=== PATIENT | male | born 1950 | race Caucasian/White ===

== ENCOUNTER 2018-02-16 07:11 | Day surgery (SDC) | payer OTHER ==
[2018-02-16] MEDS ORDERED: PHENYLEPHRINE 10% OPTH 5ML ONE (07:35)
[2018-02-16] MEDS ORDERED: NA CHLORIDE 0.9% 500 ML ONE (07:35)
[2018-02-16] MEDS ORDERED: CYCLOPENTOLATE 1% OPTH 2 ML ONE (07:36)
[2018-02-16] MEDS ORDERED: LIDOCAINE 2% MPF 5 ML VIAL ONE (07:36)
[2018-02-16] MEDS ORDERED: TETRACAINE HCL 0.5% 2ML OPTH ONE (07:36)
[2018-02-16] MEDS ORDERED: BUPIVACAINE 0.25% PF 10 ML VIAL ONE (07:36)
[2018-02-16] MEDS ORDERED: NS 0.9% VIAL 10 ML ONE (07:57)
[2018-02-16] MEDS ORDERED: EPINEPHRINE/PF 1 MG/ML AMP ONE (07:58)
[2018-02-16] MEDS ORDERED: BALANCED SALT IRRIG PLAIN 500 ML BTL IRR ONE (07:58)
[2018-02-16] MEDS ORDERED: MOXIFLOXACIN HCL 10 DROPS/ML **OR USE OPTH ONE (07:58)
[2018-02-16] MEDS ORDERED: DUOVISC 1 KIT OPTH ONE (07:58)
[2018-02-16] MEDS ORDERED: CYCLOPENTOLATE 1% OPTH 2 ML OPTH ONE ×2 (08:19→08:26)
[2018-02-16] MEDS ORDERED: PHENYLEPHRINE 10% OPTH 5ML OPTH ONE ×2 (08:19→08:26)
[2018-02-16] MEDS ORDERED: PROPOFOL 200 MG/20 ML VIAL IV ONE (08:30)
[2018-02-16 08:38] VITALS: O2SAT 98
[2018-02-16] MEDS ORDERED: FENTANYL CITR 100 MCG/2 ML ONE (09:14)
--- NOTE | 2018-02-16 09:40 | P.BOP ---
Preoperative diagnosis: Nuclear sclerotic cataract OD Postoperative diagnosis: Same Primary procedure: Phacoemulsification with IOL OD Estimated blood loss: None Anesthesia: Local (Subtenon's infusion with anesthesia for cataract surgery) Complications: None Implants: ZCB00 +21.5 Transferred to: Other (Day surgery) Condition: Good
[2018-02-16 10:09] VITALS: BP 160/78; TEMP 98.1
--- NOTE | 2018-02-16 22:01 | OP ---
Date of Procedure: 02/16/2018 Surgeon: Gricelda Horton MD Anesthesiologist: 1. Elias Merrill CRNA. 2. Romario Veliz M.D. Preoperative Diagnosis: Nuclear sclerotic cataract, OD (right eye). Operation Performed: Phacoemulsification with intraocular lens implant, right eye. Anesthesia: Per cataract surgery. Complications: None. Description Of Procedure: In day surgery, the patient was prepped with Betadine and draped. A conju nctival incision was made in the inferior nasal quadrant with Елена scissors. A sub-Tenon block c onsisting of a 1:1 mixture of 2% Xylocaine and 0.25% bupivacaine was placed through the conjunctival incision with a blunt cannula. A Honan balloon was placed over the eye and the patient was transferr ed to the operating room. In the operating room the patient was prepped and draped in the usual sterile fashion for ophthalmic surgery. A lid speculum was placed in the right eye. Two paracentesis sites were made superiorly an d inferiorly in the limbal cornea. Viscoat was placed in the anterior chamber and a crescent blade w as used to make a corneal groove and tunnel, and a keratome was used to enter the anterior chamber. Provisc was placed in the anterior chamber and a 360 degree capsulotomy was performed with a cystitom e. The lens was hydrodissected with BSS and rotated freely. The lens was removed with a stop and ch op technique. 10.88 CDE was used to remove the lens. Residual cortex was removed with the irrigatio n and aspiration. Provisc was placed in the capsular bag. A ZCB00 +21.5 lens was placed in the caps ular bag without complications. Irrigation and aspiration was used to remove residual viscoelastic. The paracentesis sites were hydrated with BSS. The wound and paracentesis sites were inspected and found to be watertight. Vigamox 0.07 cc was placed intracamerally at the end of the procedure. The eye was irrigated with balanced salt solution. The eye was patched with a soft cotton patch and Carpenter metal shield. The patient was returned to day surgery in good condition. Comments: Discharge Instructions: Mr. Guzman is discharged to home in good condition and is to follow up with Dr. Horton in the morning. VIRIDIANA/WELLINGTON Voice ID: [id number] Report ID: [id number]
== END 2018-02-16 09:59 | disposition home or self-care (01) ==
LOC: OR 07:11
PROVIDERS: ATTEND Ophthalmology Retina Specialist
PROC: 08RJ3JZ Replacement of Right Lens with Synthetic Substitute, Percutaneous Approach (ICD-10-PCS; principal; 2018-02-16 09:00)
DX: H25.11 Age-related nuclear cataract, right eye (principal); E11.9 Type 2 diabetes mellitus without complications; I10 Essential (primary) hypertension; E78.00 Pure hypercholesterolemia, unspecified; Z79.82 Long term (current) use of aspirin; Z85.528 Personal history of other malignant neoplasm of kidney; Z83.511 Family history of glaucoma; Z82.49 Family history of ischemic heart disease and other diseases of the circulatory system; Z80.9 Family history of malignant neoplasm, unspecified
CPT/HCPCS: 66984; 82962; J0171; J3010

== ENCOUNTER 2019-01-05 14:50 | Emergency (ER) | payer OTHER ==
--- OUTSIDE RECORDS SUMMARY | 2019-01-05 14:53 | XMS REPORT | Clinical Summary ---
:1950 Author Organization [facility] Address [address] [place] [address] Care Team Providers Name Role Phone Ryan Tirado MD Primary Care Provider Allergies Active Allergy Reactions Severity Noted Date Comments Droperidol 07/24/2018 Feels like crawling in his skin Medications Medication Sig Dispensed Refills Start End Date Status Date hydrALAZINE (APRESOLINE) Take 100 mg 0 Active 100 MG tablet by mouth 2 (two) times a day. clonIDINE HCl (CATAPRES) Take 0.3 mg 0 Active 0.3 MG tablet by mouth 3 (three) times a day. doxazosin (CARDURA) 4 MG Take 4 mg by 0 Active tablet mouth nightly. gabapentin (NEURONTIN) Take 100 mg 0 Active 100 mg capsule by mouth 2 (two) times a day. insulin ASPART (NovoLOG) Inject 20 0 Active 100 unit/mL injection Units under the skin 3 (three) times a day before meals. insulin Inject 70 0 Active glargine,hum.rec.anlog Units under (BASAGLAR KWIKPEN U-100 the skin INSULIN SUBQ) nightly. linaclotide (LINZESS) Take 290 mcg 0 Active 290 mcg capsule by mouth 3 (three) times a week. propranolol HCl Take 120 mg 0 Active (PROPRANOLOL ORAL) by mouth nightly. rOPINIRole (REQUIP) 1 MG Take 1 mg by 0 Active tablet mouth 3 (three) times a day. hydroCHLOROthiazide Take 25 mg by 0 Active (HYDRODIURIL) 25 MG mouth daily. tablet spironolactone Take 25 mg by 0 Active (ALDACTONE) 25 MG tablet mouth daily. venlafaxine XR Take 75 mg by 0 Active (EFFEXOR-XR) 75 MG 24 hr mouth daily. capsule liraglutide (VICTOZA Inject 1.2 mg 0 Active 3-NISA SUBQ) under the skin nightly. furosemide (LASIX) 20 mg Take 20 mg by 5 Active tablet mouth daily. 8 UNABLE TO FIND Take 1 0 08/02/20 Discontinued capsule by 18 mouth daily. Med Name:Mitochon drial energy booster traMADol (ULTRAM) 50 mg Take 50 mg by 0 08/02/20 Discontinued tablet mouth every 6 18 (six) hours as needed for moderate pain. acetaminophen-codeine Take 1-2 40 tablet 0 08/09/19 (TYLENOL WITH CODEINE tablets by 8 19 #3) 300-30 mg per tablet mouth every 6 (six) hours as needed for moderate pain for up to 7 days. methocarbamol (ROBAXIN) Take 1 tablet 30 tablet 0 08/17/19 500 MG tablet (500 mg 8 19 total) by mouth 2 (two) times a day as needed for muscle spasms for up to 15 days. Active Problems Problem Noted Date Cervical radiculopathy due to intervertebral disc disorder 07/31/2018 Encounters Date Type Specialty Care Team Description 10/13/2018 Orders Only General Surgery Daryl, Morbid obesity (HCC) ( Primary Dx); SERJIO Cherry Preop examination 10/05/2018 Office Visit General Surgery Sunil, Morbid obesity due to excess calories (HCC) (Primary Dx); MD Nestor Diabetes mellitus due to underlying condition with hyperosmolarity without coma, unspecified whether long term care pharmacist insulin use (HCC); Essential hypertension; Chronic renal failure, stage 3 (moderate) (HCC) 08/12/2018 Hospital Encounter Radiology Yasmin Schuster Neck pain MD Kevin 08/12/2018 Transcribe Orders Access Yasmin Schuster Neck pain (Primary Dx) MD Kevin 07/31/2018 Anesthesia Event General Surgery Lizz Berger APRN 07/31/2018 Surgery General Surgery Yasmin Schuster C5-C6 ANTERIOR CERVICAL MD Kevin DISCECTOMY AND FUSION 07/31/2018 - Hospital Encounter General Internal Yasmin Schuster Radiculopathy , cervical; 08/02/2018 Medicine MD Kevin Cervical stenosis of spine 07/24/2018 Pre-Admit Testing Pre-Admission Yasmin Schuster Pre-op testing ( Primary Appointment Testing MD Kevin Dx) 07/16/2018 Hospital Encounter Radiology Yasmin Schuster Radiculopathy, unspecified spinal region; MD Kevin Lumbar radiculopathy 07/16/2018 Hospital Encounter Radiology Yasmin Schuster Radiculopathy, unspecified spinal region; MD Kevin Lumbar radiculopathy 07/16/2018 Transcribe Orders Radiology Yasmin Schuster Radiculopathy, unspecified spinal region (Primary Dx); MD Kevin Lumbar radiculopathy after 01/04/2018 Family History Medical History Relation Name Comments Heart disease Father Hypertension Father Prostate cancer Father Stroke Father Breast cancer Maternal Aunt Arthritis Mother Emphysema Mother Lung disease Mother Relation Name Status Comments Father Maternal Aunt Mother Social History Tobacco Use Types Packs/Day Years Used Date Never Smoker Smokeless Tobacco: Never Used Alcohol Use Drinks/Week oz/Week Comments Yes 2-3 drinks per week Sex Assigned at Date Recorded Not on file Job Start Date Occupation Industry Not on file Not on file Not on file Travel History Travel Start Travel End No recent travel history available. Last Filed Vital Signs Vital Sign Reading Time Taken Blood Pressure 110/73 10/05/2018 1:58 PM ACCESS CLINICIAN Pulse 92 10/05/2018 1:58 PM ACCESS CLINICIAN Temperature 36.6 C (97.8 F) 10/05/2018 1:58 PM ACCESS CLINICIAN Respiratory Rate 18 08/02/2018 8:02 AM ACCESS CLINICIAN Oxygen Saturation 95% 10/05/2018 1:58 PM ACCESS CLINICIAN Inhaled Oxygen Concentration - - Weight 127 kg (279 lb 12.8 oz) 10/05/2018 1:58 PM ACCESS CLINICIAN Height 177.8 cm (5' 10") 10/05/2018 1:58 PM ACCESS CLINICIAN Body Mass Index 40.15 10/05/2018 1:58 PM ACCESS CLINICIAN Plan of Treatment Health Maintenance Due Date Last Done Comments DIABETIC RETINAL EYE EXAM 1950 DIABETIC FOOT EXAM 10/20/1959 COLON CANCER SCREENING 10/20/1999 SHINGLES VACCINES (#1) 10/20/1999 65+ PNEUMOCOCCAL VACCINE (1 of 2 - PCV13) 2014 PNEUMOCOCCAL POLYSACCHARIDE VACCINE AGE 65 AND OVER 2014 INFLUENZA VACCINE 03/04/2019 06/03/2018 Implants Implanted Type Area Sodder Device Shelf Model / Identifier Expiration Serial / Lot Date Bone Matriz Osteocel Pro Small - [id number] - [id number] Human N/A: [employer] 02/26/2023 [id number] / Implanted: Qty: 1 on 07/31/2018 by Yasmin Schuster MD Tissue N/A [id number] / Implants [id number] Distraction Pin- 12mm - [id number] IMPLANT N/A: [employer] SPINE [id number] / Implanted: 07/31/2018 (Quantity not on file) DEVICES N/A / Spinal Cage Ortho - N/A: [employer] 12/08/2022 [id number] / Implanted: Qty: 1 on 07/31/2018 by Yasmin Schuster MD Spinal N/A [id number] / Implant [id number] Screw Spinal Fxd Slf-Tap 4x13mm [place] [employer] Acp - [id number] Spinal N/A : [employer]UV[employer]IVE [id number] / Implanted: 07/31/2018 (Quantity not on file) Implants N/A / Screw Spinal Marcia Slf-Tap 4x13mm [place] [employer] Acp - [id number] Spinal N/A : [employer]UV[employer]IVE [id number] / Implanted: 07/31/2018 (Quantity not on file) Implants N/A / Plate Spinal Revltn 1lvl 22mm [place] Acp - [id number] Spinal N/A: [employer] [id number] / Implanted: 07/31/2018 (Quantity not on file) Implants N/A / Procedures Procedure Name Priority Date/Time Associated Comments Diagnosis XR CERVICAL SPINE 1 Routine 08/12/2018 10:19 Neck pain Results for this VW AM ACCESS CLINICIAN procedure are in the results section. POC GLUCOSE Routine 08/02/2018 7:47 Results for this AM ACCESS CLINICIAN procedure are in the results section. POC GLUCOSE Routine 08/01/2018 10:44 Results for this PM ACCESS CLINICIAN procedure are in the results section. POC GLUCOSE Routine 08/01/2018 7:27 Results for this PM ACCESS CLINICIAN procedure are in the results section. POC GLUCOSE Routine 08/01/2018 3:58 Results for this PM ACCESS CLINICIAN procedure are in the results section. POC GLUCOSE Routine 08/01/2018 12:33 Results for this PM ACCESS CLINICIAN procedure are in the results section. POC GLUCOSE Routine 08/01/2018 9:42 Results for this AM ACCESS CLINICIAN procedure are in the results section. POC GLUCOSE Routine 07/31/2018 10:51 Results for this PM ACCESS CLINICIAN procedure are in the results section. POC GLUCOSE Routine 07/31/2018 7:34 Results for this PM ACCESS CLINICIAN procedure are in the results section. XR CERVICAL SPINE 1 Routine 07/31/2018 7:10 Results for this VW PM ACCESS CLINICIAN procedure are in the results section. POC GLUCOSE Routine 07/31/2018 5:52 Results for this PM ACCESS CLINICIAN procedure are in the results section. XR CERVICAL SPINE 1 Routine 07/31/2018 5:50 Results for this VW PM ACCESS CLINICIAN procedure are in the results section. XR CERVICAL SPINE 1 Routine 07/31/2018 5:35 Results for this VW PM ACCESS CLINICIAN procedure are in the results section. SURGICAL PATHOLOGY Routine 07/31/2018 5:33 Results for this REQUEST PM ACCESS CLINICIAN procedure are in the results section. XR CERVICAL SPINE 1 Routine 07/31/2018 5:25 Results for this VW PM ACCESS CLINICIAN procedure are in the results section. SC AN ELECTIVE Routine 07/31/2018 5:15 ENDOTRACHEAL AIRWAY PM ACCESS CLINICIAN Procedure Note - Li Ferrari CRNA - 07/31/2018 5:15 PM ACCESS CLINICIAN ANESTHESIA INTUBATION Date/Time: 07/31/2018 4:48 PM Performed by: Li Ferrari CRNA Authorized by: Baron Ortiz MD Location: OR Urgency: Elective Difficult Airway: No Resident/GREENS TIER/AA: Li Ferrari CRNA Performed by: resident/CHRISTEN/AA Preoxygenated with 100% O2: Yes C-spine Precautions Maintained Throughout: No Mask Ventilation: Easy mask Final Airway Type: Endotracheal airway Final Endotracheal Airway: ETT Cuffed: Yes Technique Used: Video laryngoscopy Devices/Methods Used in Placement: Intubating stylet Insertion Site: Oral Blade Type: Joshua Laryngoscope Blade/Videolaryngoscope Blade Size: 4 ETT Size (mm): 8.0 Cuff at minimum occlusion pressure: Yes Measured from: Teeth ETT to Teeth (cm): 24 Placement Verified by: CO2 detection, direct visualization and equal breath sounds Laryngoscopic view: Grade IIa - partial view of glottis Rapid Sequence Induction (RSI): No Modified RSI: No Number of Attempts at Approach: 2 Eyes taped shut prior to airway manipulation. DL X 1 per GREENS TIER unsuccessful, changed to glidescope. Successfully intubated. No apparent trauma. POC GLUCOSE Routine 07/31/2018 3:18 PM Results for this ACCESS CLINICIAN procedure are in the results section. POC GLUCOSE Routine 07/31/2018 2:27 PM Results for this ACCESS CLINICIAN procedure are in the results section. DISCECTOMY, 07/31/2018 1:50 PM Radiculopathy, CERVICAL, WITH ACCESS CLINICIAN cervical FUSION, ANTERIOR Cervical stenosis APPROACH of spine Case Notes SUPINE POSITION, REGULAR OR BED-REVERSED., MICROSCOPE, HELIX R-ANTERIOR PLATE , PEEK SMALL COUTOURED CAGE, REQ GLOVE TURNER AND FORMER Special Needs SUPINE POSITION, REGULAR OR BED-REVERSED., MICROSCOPE, HELIX R-ANTERIOR PLATE , PEEK SMALL COUTOURED CAGE, REQ GLOVE TURNER AND FORMER POC GLUCOSE Routine 07/31/2018 1:24 Results for this PM ACCESS CLINICIAN procedure are in the results section. POC GLUCOSE Routine 07/31/2018 12:50 Results for this PM ACCESS CLINICIAN procedure are in the results section. POC GLUCOSE Routine 07/31/2018 11:35 Results for this AM ACCESS CLINICIAN procedure are in the results section. POC GLUCOSE Routine 07/31/2018 9:55 Results for this AM ACCESS CLINICIAN procedure are in the results section. ESTIMATED GFR STAT 07/31/2018 8:27 Results for this AM ACCESS CLINICIAN procedure are in the results section. BASIC METABOLIC PANEL STAT 07/31/2018 8:27 Results for this AM ACCESS CLINICIAN procedure are in the results section. POC GLUCOSE Routine 07/31/2018 8:19 Results for this AM ACCESS CLINICIAN procedure are in the results section. CBC HEMOGRAM Routine 07/24/2018 1:37 Pre-op testing Results for this PM ACCESS CLINICIAN procedure are in the results section. ECG PRE/POST OP Routine 07/24/2018 1:30 Pre-op testing Results for this PM ACCESS CLINICIAN procedure are in the results section. ESTIMATED GFR Routine 07/24/2018 12:47 Results for this PM ACCESS CLINICIAN procedure are in the results section. HEMOGLOBIN A1C Routine 07/24/2018 12:47 Pre-op testing Results for this PM ACCESS CLINICIAN procedure are in the results section. PROTHROMBIN TIME WITH Routine 07/24/2018 12:47 Pre-op testing Results for this INR PM ACCESS CLINICIAN procedure are in the results section. PARTIAL THROMBOPLASTIN Routine 07/24/2018 12:47 Pre-op testing Results for this TIME (PTT) PM ACCESS CLINICIAN procedure are in the results section. BASIC METABOLIC PANEL Routine 07/24/2018 12:47 Pre-op testing Results for this PM ACCESS CLINICIAN procedure are in the results section. MRI LUMBAR SPINE WO Routine 07/16/2018 5:05 Radiculopathy, Results for this CONTRAST PM ACCESS CLINICIAN unspecified spinal procedure are in region the results Lumbar radiculopathy section. MRI CERVICAL SPINE WO Routine 07/16/2018 4:48 Radiculopathy, Results for this CONTRAST PM ACCESS CLINICIAN unspecified spinal procedure are in region the results Lumbar radiculopathy section. after 01/04/2018 Results XR Cervical Spine 1 Vw (08/12/2018 10:19 AM ACCESS CLINICIAN)Only the most recent of5 resultswithin the time period is included. Specimen Narrative Performed At EXAMINATION:XR CERVICAL SPINE 1 VW RADIANT CLINICAL HISTORY:M54.2 Cervicalgia, m54.2 COMPARISON:Cervical spinal radiograph on 07/31/2018. FINDINGS: Total of 2 views with lateral radiographs of the cervical spine and cervicothoracic junction region. There are postoperative changes from C5-6 anterior discectomy and fusion with interbody cage graft, anterior plate and screws. Anterior plate and screws are flush with underlying bone. Grossly, no evidence of hardware failure or loosening. No malalignment. Mild moderately prominent bridging/near-bridging anterior endplate osteophytes are noted along multiple cervical levels between C2 and T2 levels. Previous monitoring and life support lines have been removed. Prevertebral soft tissues are thickened, measuring 1.3 cm in maximally thickness at the C5 level. IMPRESSION: 1. Postoperative changes from C5-6 anterior discectomy and fusion. No gross hardware failure or loosening. No malalignment. 2. Thickened prevertebral soft tissue, likely postoperative. [id number] Procedure Note Hm Interface, Radiology Results Incoming - 08/12/2018 10:30 AM ACCESS CLINICIAN EXAMINATION: XR CERVICAL SPINE 1 VW CLINICAL HISTORY: M54.2 Cervicalgia, m54.2 COMPARISON: Cervical spinal radiograph on 07/31/2018. FINDINGS: Total of 2 views with lateral radiographs of the cervical spine and cervicothoracic junction region. There are postoperative changes from C5-6 anterior discectomy and fusion with interbody cage graft, anterior plate and screws. Anterior plate and screws are flush with underlying bone. Grossly, no evidence of hardware failure or loosening. No malalignment. Mild moderately prominent bridging/near-bridging anterior endplate osteophytes are noted along multiple cervical levels between C2 and T2 levels. Previous monitoring and life support lines have been removed. Prevertebral soft tissues are thickened, measuring 1.3 cm in maximally thickness at the C5 level. IMPRESSION: 1. Postoperative changes from C5-6 anterior discectomy and fusion. No gross hardware failure or loosening. No malalignment. 2. Thickened prevertebral soft tissue, likely postoperative. [id number] Performing Organization Address City/[facility]/Zipcode Phone Number [address] [address] POC glucose (08/02/2018 7:47 AM ACCESS CLINICIAN)Only the most recent of16 resultswithin the time period is included. Pathologist [facility] POC glucose 225 (H) 65 - 99 mg/dL [facility] Comment: [facility] Notified RN Meter ID: [id number] Court Abstractor: Tricia Jaimes Specimen Performing Organization Address [facility] Cent[facility] Phone Number [facility] DEPARTMENT OF PATHOLOGY AND [address] [place] [phone] GENOMIC MEDICINE [address] [address] Surgical pathology request (07/31/2018 5:33 PM ACCESS CLINICIAN) [facility] DEPARTMENT OF PATHOLOGY AND GENOMIC MEDICINE Surgical pathology See link below [facility] DEPARTMENT OF report for PDF Lab PATHOLOGY AND Report GENOMIC MEDICINE Result status This is Final [facility] DEPARTMENT OF Report for PATHOLOGY AND [id number] GENOMIC MEDICINE Specimen Performing Organization Address [facility] Centercomi Phone Number [facility] DEPARTMENT OF PATHOLOGY AND [address] [place] [phone] GENOMIC MEDICINE Estimated GFR (07/31/2018 8:27 AM ACCESS CLINICIAN)Only the most recent of2 resultswithin the time period is included. [facility] Estimated GFR 48 (A) mL/min/1.73 [facility] Comment: HOSPITAL CatergoryUnitsInterpretation G1 >=90 Normal or high G2 60-89Mildly decreased [id number] to moderately decreased H7o20-21Dxorjyacqt to severely decreased G4 15-29Severely decreased G5 <15Kidney failure The eGFR was calculated using the Chronic Kidney Disease Epidemiology Collaboration (CKD-EPI) equation. Interpretation is based on recommendations of the National Kidney Foundation-Kidney Disease Outcomes Quality Initiative (NKF-KDOQI) published in 2014. Specimen Plasma specimen Performing Organization Address City/[facility]/Zipcode Phone Number [facility] DEPARTMENT OF PATHOLOGY AND [address] [place] [phone] [address] Basic metabolic panel (07/31/2018 8:27 AM ACCESS CLINICIAN)Only the most recent of2 resultswithin the time period is included. [facility] Sodium 138 135 - 148 mEq/L [facility] Potassium 3.6 3.5 - 5.0 mEq/L [facility] Chloride 97 (L) 98 - 112 mEq/L [facility] CO2 29 24 - 31 mEq/L [facility] Anion gap 12@ANIO 7 - 15 mEq/L [facility] BUN 33 (H) 8 - 23 mg/dL [facility] Creatinine 1.48 (H) 0.70 - 1.20 mg/dL [facility] Glucose 70 65 - 99 mg/dL [facility] Calcium 9.7 8.8 - 10.2 mg/dL [facility] Specimen Plasma specimen Performing Organization Address City/[facility] Centercode Phone Number [facility] DEPARTMENT OF PATHOLOGY AND [address] [place], [place] [phone] [address] [address] CBC hemogram (07/24/2018 1:37 PM ACCESS CLINICIAN) [facility] WBC 6.78 4.50 - 11.00 k/uL [facility] RBC 4.96 4.40 - 6.00 m/uL [facility] HGB 15.0 14.0 - 18.0 g/dL [facility] HCT 44.9 41.0 - 51.0 % [facility] MCV 90.5 82.0 - 100.0 fL [facility] MCH 30.2 27.0 - 34.0 pg [facility] MCHC 33.4 31.0 - 37.0 g/dL [facility] RDW - SD 44.4 37.0 - 55.0 fL [facility] MPV 11.1 8.8 - 13.2 fL [facility] Platelet count 184 150 - 400 k/uL [facility] Nucleated RBC 0.00 /100 WBC [facility] Specimen Blood Performing Organization Address City/[facility] Centercode Phone Number [facility] DEPARTMENT OF PATHOLOGY AND [address] [place] [phone] [address] ECG Pre/Post Op (07/24/2018 1:30 PM ACCESS CLINICIAN) Ventricular rate 86 [facility] Atrial rate 86 [facility] SC interval 182 [facility] QRSD interval 104 [facility] QT interval 390 [facility] QTC interval 466 [facility] P axis 1 79 [facility] QRS axis 1 55 [facility] T wave axis 78 [facility]USE EKG impression Normal sinus [facility] MUSE rhythm-Prolonged QT-Abnormal ECG-No previous ECGs available-Electronicall y Signed By Lamonte Dumont MD ([id number]) on 07/25/2018 9:11:20 AM Specimen Narrative Performed At Performing Organization Address City/State/Zipcode Phone Number [facility] MUSE [address] [place] [phone] Partial thromboplastin time, activated (07/24/2018 12:47 PM ACCESS CLINICIAN) Pathologist [facility] PTT 32.6 23.0 - 36.0 [facility] Comment: [facility] PTT therapeutic range for unfractionated heparin is 61.0-112.0 seconds which corresponds to Anti-Xa 0.3-0.7 U/ml. Specimen Blood Performing Organization Address City/State/Zipcode Phone Number [facility] DEPARTMENT OF PATHOLOGY AND [address] [place] [phone] [address] Prothrombin time with INR (07/24/2018 12:47 PM ACCESS CLINICIAN) Pathologist [facility] Prothrombin time 12.2 11.5 - 14.5 [facility] INR 0.9 [place] Comment: EPISCOPALIAN [facility] International Normalized Ratio (INR) is a therapeutic HOSPITAL monitoring tool for patients who are stable on oral anticoagulant therapy. An INR of 2.0-3.0 is suggested for deep vein thrombosis/pulmonary embolism. Specimen Blood Performing Organization Address City/State/Zipcode Phone Number [facility] DEPARTMENT OF PATHOLOGY AND [address] [place] [phone] [address] Hemoglobin A1c (07/24/2018 12:47 PM ACCESS CLINICIAN) Pathologist [facility] Hemoglobin A1C 7.4 (H) 4.0 - 5.6 % [facility] Comment: HOSPITAL HbA1c cutoffs for diagnosing diabetes: 4.0% - 5.6%=normal 5.7% - 6.4%=increased risk for diabetes (prediabetes) >=6.5%=diabetes Goals for glycemic control (ADA 2016) < 7.0%Target for non adults with diabetes. More or less stringent targets may be appropriate for individual patients. <7.5% Target for Children and adolescents with type 1 diabetes. Specimen Blood Performing Organization Address City/State/Zipcode Phone Number [facility] DEPARTMENT OF PATHOLOGY AND [address] [place] [address] GENOMIC MEDICINE [facility] [address] [place] [phone] MRI Lumbar Spine Wo Contrast (07/16/2018 5:05 PM ACCESS CLINICIAN) Specimen Narrative Performed At EXAMINATION:MRI LUMBAR SPINE WO CONTRAST RADIANT CLINICAL HISTORY:M54.10 Radiculopathysite unspecified, M54.16 Radiculopathylumbar region, CERVICALLUMBAR RADICULOPATHY COMPARISON:MR spine October 08, 2003. FINDINGS: L5-S1: There is marked ventral spondylosis and loss of normal signal intensity disc. There is very minimal dorsal bulging of the disc. There are mild degenerative hypertrophic changes the facet joints. There is some extension of the disc into the inferior neural foramen on the right suggesting possible foraminal disc protrusion. There is mild to moderate foraminal stenosis on the right and minimal foraminal narrowing on the left side. There is no spinal canal. L4-5: There is marked ventral spondylosis and loss of normal signal intensity disc. There is a mild dorsal disc bulge. There is minimal spondylolisthesis of L4 in relation L5 with a mild to moderate hypertrophic changes facet joints and thickening of the ligamentum flavum. These changes result in moderate to marked (6 mm) thecal sac stenosis. There is moderate to marked foraminal stenosis on the left and mild foraminal stenosis on the right. I cannot exclude a shallow subarticular disc protrusion on the left. L3-4: There is a mild ventral spondylosis and loss of normal signal intensity in the disc. There is minimal disc space narrowing. There is minimal bulging of the annulus. There are moderate degenerative changes in the facet joints and thickening of the ligamentum flavum. These changes result in moderate (7 mm) thecal sac stenosis. There is no foraminal stenosis. L2-3: There is moderate ventral spondylosis and some loss of normal signal intensity in the disc. There are minimal hypertrophic changes the facet joints. There is no stenosis. L1-2: There is moderate to marked ventral spondylosis. There is no dorsal spondylosis or stenosis. Imaging of the thoracolumbar junction demonstrates no evidence of a conus IMPRESSION: Degenerative changes lumbar spine with multilevel spinal canal and foraminal stenosis as described above. [facility]-[id number] Procedure Note Hm Interface, Radiology Results Incoming - 07/17/2018 12:50 AM ACCESS CLINICIAN EXAMINATION: MRI LUMBAR SPINE WO CONTRAST CLINICAL HISTORY: M54.10 Radiculopathy site unspecified, M54.16 Radiculopathy lumbar region, CERVICAL LUMBAR RADICULOPATHY COMPARISON: MR spine October 08, 2003. FINDINGS: L5-S1: There is marked ventral spondylosis and loss of normal signal intensity disc. There is very minimal dorsal bulging of the disc. There are mild degenerative hypertrophic changes the facet joints. There is some extension of the disc into the inferior neural foramen on the right suggesting possible foraminal disc protrusion. There is mild to moderate foraminal stenosis on the right and minimal foraminal narrowing on the left side. There is no spinal canal. L4-5: There is marked ventral spondylosis and loss of normal signal intensity disc. There is a mild dorsal disc bulge. There is minimal spondylolisthesis of L4 in relation L5 with a mild to moderate hypertrophic changes facet joints and thickening of the ligamentum flavum. These changes result in moderate to marked (6 mm) thecal sac stenosis. There is moderate to marked foraminal stenosis on the left and mild foraminal stenosis on the right. I cannot exclude a shallow subarticular disc protrusion on the left. L3-4: There is a mild ventral spondylosis and loss of normal signal intensity in the disc. There is minimal disc space narrowing. There is minimal bulging of the annulus. There are moderate degenerative changes in the facet joints and thickening of the ligamentum flavum. These changes result in moderate (7 mm) thecal sac stenosis. There is no foraminal stenosis. L2-3: There is moderate ventral spondylosis and some loss of normal signal intensity in the disc. There are minimal hypertrophic changes the facet joints. There is no stenosis. L1-2: There is moderate to marked ventral spondylosis. There is no dorsal spondylosis or stenosis. Imaging of the thoracolumbar junction demonstrates no evidence of a conus IMPRESSION: Degenerative changes lumbar spine with multilevel spinal canal and foraminal stenosis as described above. [facility]-[id number] Performing Organization Address City/State/Zipcode Phone Number [facility] [address] [place] [address] MRI Cervical Spine Wo Contrast (07/16/2018 4:48 PM ACCESS CLINICIAN) Specimen Narrative Performed At EXAMINATION:MRI CERVICAL SPINE WO CONTRAST [facility] CLINICAL HISTORY:M54.10 Radiculopathysite unspecified, M54.16 Radiculopathylumbar region, CERVICALLUMBAR RADICULOPATHY COMPARISON:Cervical spine October 08, 2003. FINDINGS: C1-2: No significant abnormality. C2-3: There is mild degenerative change in the facet joints. There is otherwise minimal spondylosis. The foramina are not that well demonstrated but there appears to be mild foraminal stenosis particularly on the left side. There is no spinal canal stenosis. C3-4: There is minimal spondylosis and dorsal disc bulge slightly greater on the left. There are moderate degenerative changes in the facet joints. There is mild (9 mm) canal stenosis without cord compression. There is moderate foraminal stenosis bilaterally. C4-5: There is moderate to marked ventral spondylosis. There are moderate to marked degenerative changes the facet joint on the right and to a lesser degree on the left without spondylolisthesis. There is a small to moderate size central disc protrusion contacting the ventral surface of the spinal cord. There is mild to moderate ( 8 mm) canal stenosis without cord compression. There is moderate foraminal stenosis on the left and mild foraminal stenosis right. C5-6: There is slight retrolisthesis of C5 in relation C6. There is marked ventral spondylosis. There is a broad dorsal disc bulge/protrusion greater on the left. There is mild to moderate (8 mm) centra l canal stenosis without definite cord compression. There are moderate hypertrophic changes in the facet joints with at least moderate foraminal stenosis bilaterally. C6-7: There is marked ventral spondylosis. There is minimal dorsal disc bulge slightly greater on the left. There is no spinal canal stenosis. There are mild degenerative changes in the facet joints wit h poor demonstration of the foramina. There appears to be a mild degree of foraminal stenosis bilaterally. C7-T1: There is mild ventral spondylosis. There is a minimal dorsal disc bulge. There are mild degenerative changes in the facet joints. There is no stenosis. There is no signal abnormality demonstrated in the spinal cord and no evidence of Chiari malformation. IMPRESSION: Cervical spondylosis and disc protrusions with a mild to moderate canal stenosis but no definite cord compression. The foramina are not demonstrated but there does appear to be a multilevel foraminal stenosis bilaterally. There is no evidence of a cervical spinal cord lesion. The degenerative changes have progressed considerably from the prior study [facility]-[id number] Procedure Note [facility], Radiology Results Incoming - 07/17/2018 12:50 AM ACCESS CLINICIAN EXAMINATION: MRI CERVICAL SPINE WO CONTRAST CLINICAL HISTORY: M54.10 Radiculopathy site unspecified, M54.16 Radiculopathy lumbar region, CERVICAL LUMBAR RADICULOPATHY COMPARISON: Cervical spine October 08, 2003. FINDINGS: C1-2: No significant abnormality. C2-3: There is mild degenerative change in the facet joints. There is otherwise minimal spondylosis. The foramina are not that well demonstrated but there appears to be mild foraminal stenosis particularly on the left side. There is no spinal canal stenosis. C3-4: There is minimal spondylosis and dorsal disc bulge slightly greater on the left. There are moderate degenerative changes in the facet joints. There is mild (9 mm) canal stenosis without cord compression. There is moderate foraminal stenosis bilaterally. C4-5: There is moderate to marked ventral spondylosis. There are moderate to marked degenerative changes the facet joint on the right and to a lesser degree on the left without spondylolisthesis. There is a small to moderate size central disc protrusion contacting the ventral surface of the spinal cord. There is mild to moderate ( 8 mm) canal stenosis without cord compression. There is moderate foraminal stenosis on the left and mild foraminal stenosis right. C5-6: There is slight retrolisthesis of C5 in relation C6. There is marked ventral spondylosis. There is a broad dorsal disc bulge/protrusion greater on the left. There is mild to moderate (8 mm) central canal stenosis without definite cord compression. There are moderate hypertrophic changes in the facet joints with at least moderate foraminal stenosis bilaterally. C6-7: There is marked ventral spondylosis. There is minimal dorsal disc bulge slightly greater on the left. There is no spinal canal stenosis. There are mild degenerative changes in the facet joints with poor demonstration of the foramina. There appears to be a mild degree of foraminal stenosis bilaterally. C7-T1: There is mild ventral spondylosis. There is a minimal dorsal disc bulge. There are mild degenerative changes in the facet joints. There is no stenosis. There is no signal abnormality demonstrated in the spinal cord and no evidence of Chiari malformation. IMPRESSION: Cervical spondylosis and disc protrusions with a mild to moderate canal stenosis but no definite cord compression. The foramina are not demonstrated but there does appear to be a multilevel foraminal stenosis bilaterally. There is no evidence of a cervical spinal cord lesion. The degenerative changes have progressed considerably from the prior study [facility]-[id number] Performing Organization Address City/State/Zipcode Phone Number [facility] [address] [place] [address] after 01/04/2018 Insurance Payer Benefit Plan / Subscriber ID Effective Dates Phone Address Type Group [employer] MEDICARE HU[employer]NA MEDICARE xxxxxxxxx 2017-Present PPO PPO/PFFS/ERS [facility] (Work) Advance Directives Patient has advance care planning documents on file. For more information, please contact:Butch Mata[address] [place] [address]
--- OUTSIDE RECORDS SUMMARY | 2019-01-05 14:54 | XMS REPORT ---
:1950 [facility] Address [address] [place] [address] Dr. Cody [address] [place] [id number] Care Team Providers Name Role Phone Unavailable Unavailable Unavailable Problems This patient has no known problems. Allergies, Adverse Reactions, Alerts This patient has no known allergies or adverse reactions. Medications This patient has no known medications.
--- NOTE | 2019-01-05 16:09 | RAD REPORT ---
EXAM DESCRIPTION: US - Extrem Venous W Compress Warren - 01/05/2019 4:01 pm CLINICAL HISTORY: SOB Bilateral leg edema and swelling. COMPARISON: Extrem Venous W Compress Warren dated 07/03/2016 TECHNIQUE: Real-time sonographic interrogation of the left and right lower extremity deep venous sys tems was performed. FINDINGS: Normal compressibility, flow augmentation, phasic flow and spontaneous flow is identified in both the left and right lower extremity deep venous systems. IMPRESSION: No sonographic evidence of left or right lower extremity deep venous thrombosis.
[2019-01-05 16:40] LABS: Absolute Lymphocytes (CBC) 1.4 K/uL (0.7-4.9); Absolute Monocytes 0.4 K/uL (0.1-1.3); Absolute Neutrophil 3.8 K/uL (1.8-8.0); Basophils % 0.5 % (0-1.3); Eosinophils % 4.3 % (0-4.4); Lymphocytes % 23.3 % (15.3-44.8); MPV 8.4 fL (7.6-11.3); Monocytes % 6.6 % (3.3-12.3)
[2019-01-05 16:44] LABS: Protime INR 0.95
[2019-01-05] MEDS ORDERED: NA CHLORIDE 0.9% 500 ML ONE (17:02)
[2019-01-05 17:04] LABS: ALT/SGPT 28 U/L (12-78); AST/SGOT 17 U/L (15-37); Albumin 3.5 g/dL (3.4-5.0); Alkaline Phosphatase 54 U/L (45-117); BUN Blood Urea Nitrogen 18 mg/dL (7-18); Bicarbonate 31 mmol/L (21-32); Bilirubin Direct 0.1 mg/dL (0-0.2); Bilirubin Total 0.6 mg/dL (0.2-1.0); Glucose Level 199 mg/dL (74-106); Magnesium 1.6 mg/dL (1.8-2.4); NT PRO-BNP 281 pg/mL (<125); Potassium 3.9 mmol/L (3.5-5.1); Protein, Total 7.3 g/dL (6.4-8.2); Sodium Level 137 mmol/L (136-145); Troponin (Emerg Dept Use Only) < 0.02 ng/mL (0.0-0.045)
[2019-01-05] MEDS ORDERED: MAGNESIUM OXIDE 400 MG TAB ONE (17:39)
--- NOTE | 2019-01-05 17:45 | RAD REPORT ---
EXAM DESCRIPTION: CT - Chest For Pe Angio - 01/05/2019 5:36 pm CLINICAL HISTORY: Chest pain. Cough;SOB COMPARISON: <Comparisons> TECHNIQUE: CT angiogram of the pulmonary arteries was performed with MIP. All CT scans are performed using dose optimization technique as appropriate and may include automated exposure control or mA/KV adjustment according to patient size. FINDINGS: No evidence of pulmonary thromboembolism. No acute aortic finding demonstrated. The ascending thoracic aorta appears mildly ectatic measuring u p to 4.3 cm. The lungs are clear. No significant pericardial or pleural fluid. No concerning bony finding. IMPRESSION: No evidence of pulmonary thromboembolism. No acute lung findings.
--- NOTE | 2019-01-05 18:11 | ER ---
Nurse's Notes [facility] Name: Guanakito Guzman Age: 68 yrs Sex: Male : 1950 Arrival Date: 01/05/2019 Time: 14:52 Bed 15 Private MD: Ryan Tirado V Diagnosis: Malaise and fatigue Presentation: 01/05 15:11 Presenting complaint: Patient states: i have diabetes, lately i went to Dr. Tirado for tw2 an ache in my chest and getting short of breath just doing a few little things, a couple of days this week i felt so bad, i felt weak, dizzy, lia like i was on some kind of a trip but it wasn't pleasant. Transition of care: patient was not received from another setting of care. Onset of symptoms was January 05, 2019. Risk Assessment: Do you want to hurt yourself or someone else? Patient reports no desire to harm self or others. Initial Sepsis Screen: Does the patient meet any 2 criteria? No. Patient's initial sepsis screen is negative. Does the patient have a suspected source of infection? No. Patient's initial sepsis screen is negative. Care prior to arrival: None. 15:11 Method Of Arrival: Wheelchair tw2 15:11 Acuity: SHAILA 3 tw2 15:[address] Tirado said go to ER for STAT CT Pulmonary Angiogram. tw2 Triage Assessment: 15:13 General: Appears in no apparent distress. obese, well groomed, Behavior is calm, tw2 cooperative, appropriate for age. Pain: Denies pain. Historical: - Allergies: 15:20 Inapsine; tw2 - Home Meds: 15:20 basaglar insulin [Active]; Novolog 100 unit/mL Sub-Q soln [Active]; clonidine HCl 0.3 tw2 mg oral tab [Active]; aspirin 81 mg Oral chew 1 tab once daily [Active]; bumetanide 1 mg Oral tab 1 tab 3 times per day [Active]; Cymbalta 60 mg oral cpDR 1 cap once daily [Active]; doxazosin 4 mg oral tab 1 tab once daily [Active]; glimepiride 4 mg Oral tab 2 tab once daily [Active]; Nifedipine ER 30 mg Oral [Active]; propranolol 120 mg Oral Cs24 1 cap once daily [Active]; Jardiance 10 mg oral tab 1 tab once daily [Active]; ropinirole 1 mg oral tab 1 tab 3 times per day [Active]; spironolacton-hydrochlorothiaz 25-25 mg Oral tab 1 tab once daily [Active]; Trujeo 50 units once daily SQ pm [Active]; - PMHx: 15:20 kidney cancer; Diabetes - IDDM; Hypertension; tw2 - PSHx: 15:20 kidney surgery; tw2 - Immunization history:: Adult Immunizations. - Social history:: Smoking status: . - Ebola Screening: : Patient denies travel to an Ebola-affected area in the 21 days before illness onset. Screenin:19 Abuse screen: Denies threats or abuse. Nutritional screening: No deficits noted. ae4 Tuberculosis screening: No symptoms or risk factors identified. Fall Risk None identified. No fall in past 12 months (0 pts). No secondary diagnosis (0 pts). IV access (20 points). Ambulatory Aid- None/Bed Rest/Nurse Assist (0 pts). Gait- Normal/Bed Rest/Wheelchair (0 pts) Mental Status- Oriented to own ability (0 pts). Assessment: 16:00 General: Appears in no apparent distress. comfortable, obese, Behavior is calm, ae4 cooperative, appropriate for age. Pain: Denies pain. Neuro: Level of Consciousness is awake, alert, obeys commands, Oriented to person, place, time, situation, Appropriate for age. Cardiovascular: Heart tones S1 S2 present Patient's skin is warm and dry. Rhythm is regular. Respiratory: Airway is patent Respiratory effort is even, unlabored, Respiratory pattern is regular, symmetrical, Breath sounds are clear bilaterally. Respiratory: Reports shortness of breath cough that is non-productive. GI: No signs and/or symptoms were reported involving the gastrointestinal system. Patient currently denies diarrhea, nausea, vomiting. : No signs and/or symptoms were reported regarding the genitourinary system. EENT: No signs and/or symptoms were reported regarding the EENT system. Derm: Skin is pink, warm \T\ dry. Musculoskeletal: No signs and/or symptoms reported regarding the musculoskeletal system. 18:14 Reassessment: Patient appears in no apparent distress at this time. Patient and/or ae4 family updated on plan of care and expected duration. Pain level reassessed. Patient is alert, oriented x 3, equal unlabored respirations, skin warm/dry/pink. Patient states feeling better. Vital Signs: 15:13 BP 163 / 90; Pulse 77; Resp 17; Temp 98.0; Pulse Ox 97% on R/A; Weight 127.01 kg (R); tw2 Height 5 ft. 10 in. (177.80 cm) (R); Pain 0/10; 17:14 BP 172 / 87; Pulse 69; Resp 22; Pulse Ox 98% on R/A; ae4 18:13 BP 196 / 87; Pulse 68; Resp 18; Pulse Ox 98% ; ae4 15:13 Body Mass Index 40.18 (127.01 kg, 177.80 cm) tw2 ED Course: 14:52 Patient arrived in ED. mr 14:53 Ryan Tirado MD is Private Physician. mr 15:13 Triage completed. tw2 15:13 Arm band placed on. tw2 15:27 [facility] snw 15:27 Gio Fletcher MD is Attending Physician. snw 15:35 Juan Antonio Ridley, LORAINE is Primary Nurse. ae4 15:58 Radiology exam delayed due to lab results not completed at this time. (BUN/Creatinine) nj IV insertion attempt and/or patient not having appropriate IV at this time. 16:00 Inserted saline lock: 20 gauge in left antecubital area, using aseptic technique. Blood ae4 collected. 16:02 US Extremity Venous W Compression Warren In Process Unspecified. EDMS 16:22 Radiology exam delayed due to lab results not completed at this time. (BUN/Creatinine). nj 16:54 Radiology exam delayed due to lab results not completed at this time. (BUN/Creatinine). nj 17:02 Radiology exam delayed due to lab results not completed at this time. (BUN/Creatinine). nj 17:19 Placed in gown. Bed in low position. Call light in reach. Side rails up X 1. Adult w/ ae4 patient. cutter machine on. Pulse ox on. NIBP on. Warm blanket given. 17:38 CT Chest For PE Angio In Process Unspecified. EDMS 18:10 Ryan Tirado MD is Referral Physician. snw 18:58 No provider procedures requiring assistance completed. IV discontinued, intact, ae4 bleeding controlled, No redness/swelling at site. Pressure dressing applied. Administered Medications: 16:50 Drug: NS 0.9% 500 ml Route: IV; Rate: bolus; Site: left forearm; ae4 17:20 Follow up: IV Status: Completed infusion ae4 17:27 Drug: Magnesium 400 mg Route: PO; ae4 18:12 Follow up: Response: No adverse reaction ae4 Outcome: 18:10 Discharge ordered by MD. tang 18:58 Patient left the ED. ae4 18:58 Discharged to home via wheelchair. ae4 18:58 Condition: stable 18:58 Discharge instructions given to patient, Instructed on discharge instructions, follow up and referral plans. medication usage, Demonstrated understanding of instructions. Signatures: Dispatcher [employer] EDMS Venus Anand, CANVASS MANAGER-C CANVASS MANAGER-Csnw Nissa Stokes Tara, RN RN tw2 Foster Leija Andrea RN RN ae4
--- NOTE | 2019-01-05 18:12 | EDPHYS ---
Physician Documentation [facility] Name: Guanakito Guzman Age: 68 yrs Sex: Male : 1950 Arrival Date: 01/05/2019 Time: 14:52 Bed 15 Private MD: Ryan Tirado V ED Physician Gio Fletcher HPI: 01/05 15:48 This 68 yrs old Male presents to ER via Wheelchair with complaints of CT. snw 15:48 Pt states increasing fatigue, shortness of breath, dyspnea on exertion.. Onset: The snw symptoms/episode began/occurred gradually, 4 week(s) ago, and became worse and became persistent. Severity of symptoms: At their worst the symptoms were moderate severe. The patient has not experienced similar symptoms in the past. The patient has been recently seen by a physician: the patient's primary care provider, Dr. Tirado with similar presenting complaints, and was sent to the [facility] Emergency Department for further evaluation. Historical: - Allergies: 15:20 Inapsine; tw2 - Home Meds: 15:20 basaglar insulin [Active]; Novolog 100 unit/mL Sub-Q soln [Active]; clonidine HCl 0.3 tw2 mg oral tab [Active]; aspirin 81 mg Oral chew 1 tab once daily [Active]; bumetanide 1 mg Oral tab 1 tab 3 times per day [Active]; Cymbalta 60 mg oral cpDR 1 cap once daily [Active]; doxazosin 4 mg oral tab 1 tab once daily [Active]; glimepiride 4 mg Oral tab 2 tab once daily [Active]; Nifedipine ER 30 mg Oral [Active]; propranolol 120 mg Oral Cs24 1 cap once daily [Active]; Jardiance 10 mg oral tab 1 tab once daily [Active]; ropinirole 1 mg oral tab 1 tab 3 times per day [Active]; spironolacton-hydrochlorothiaz 25-25 mg Oral tab 1 tab once daily [Active]; Trujeo 50 units once daily SQ pm [Active]; - PMHx: 15:20 kidney cancer; Diabetes - IDDM; Hypertension; tw2 - PSHx: 15:20 kidney surgery; tw2 - Immunization history:: Adult Immunizations. - Social history:: Smoking status: . - Ebola Screening: : Patient denies travel to an Ebola-affected area in the 21 days before illness onset. ROS: 15:46 Eyes: Negative for injury, pain, redness, and discharge, ENT: Negative for injury, snw pain, and discharge, Neck: Negative for injury, pain, and swelling. 15:46 Abdomen/GI: Negative for abdominal pain, nausea, vomiting, diarrhea, and constipation, Back: Negative for injury and pain, : Negative for injury, bleeding, discharge, and swelling, MS/Extremity: Negative for injury and deformity, Skin: Negative for injury, rash, and discoloration. 15:46 Constitutional: Positive for body aches, fatigue, malaise, poor PO intake. 15:46 Respiratory: Positive for orthopnea, shortness of breath, at rest. 15:46 Neuro: Positive for weakness, fatigue. Exam: 15:43 Head/Face: Normocephalic, atraumatic. Eyes: Pupils equal round and reactive to light, snw extra-ocular motions intact. Lids and lashes normal. Conjunctiva and sclera are non-icteric and not injected. Cornea within normal limits. Periorbital areas with no swelling, redness, or edema. 15:43 Neck: Trachea midline, no thyromegaly or masses palpated, and no cervical lymphadenopathy. Supple, full range of motion without nuchal rigidity, or vertebral point tenderness. No Meningismus. Chest/axilla: Normal chest wall appearance and motion. Nontender with no deformity. No lesions are appreciated. Cardiovascular: Regular rate and rhythm with a normal S1 and S2. No gallops, murmurs, or rubs. Normal PMI, no JVD. No pulse deficits. Abdomen/GI: Soft, non-tender, with normal bowel sounds. No distension or tympany. No guarding or rebound. No evidence of tenderness throughout. Back: No spinal tenderness. No costovertebral tenderness. Full range of motion. 15:43 MS/ Extremity: Pulses equal, no cyanosis. Neurovascular intact. Full, normal range of motion. Neuro: Awake and alert, GCS 15, oriented to person, place, time, and situation. Cranial nerves II-XII grossly intact. Motor strength 5/5 in all extremities. Sensory grossly intact. Cerebellar exam normal. Normal gait. 15:43 Constitutional: The patient appears listless, obese. 15:43 ENT: Mouth: Oral mucosa: dry, Voice: is normal. 15:43 Respiratory: the patient does not display signs of respiratory distress, Respirations: normal, Breath sounds: are clear throughout. 15:43 Psych: Behavior/mood is depressed, Affect is calm, Oriented to person, place, time. Vital Signs: 15:13 BP 163 / 90; Pulse 77; Resp 17; Temp 98.0; Pulse Ox 97% on R/A; Weight 127.01 kg (R); tw2 Height 5 ft. 10 in. (177.80 cm) (R); Pain 0/10; 17:14 BP 172 / 87; Pulse 69; Resp 22; Pulse Ox 98% on R/A; ae4 18:13 BP 196 / 87; Pulse 68; Resp 18; Pulse Ox 98% ; ae4 15:13 Body Mass Index 40.18 (127.01 kg, 177.80 cm) tw2 MDM: 15:36 Patient medically screened. snw 18:11 Data reviewed: vital signs, nurses notes, old medical records, lab test result(s), EKG, snw radiologic studies. Data interpreted: Pulse oximetry: on room air is 98 %. Interpretation: normal. Counseling: I had a detailed discussion with the patient and/or guardian regarding: the historical points, exam findings, and any diagnostic results supporting the discharge/admit diagnosis, the presence of at least one elevated blood pressure reading (>120/80) during this emergency department visit, lab results, radiology results, the need for outpatient follow up. Physician consultation: Ryan Tirado MD was called at 18:00, was contacted at 18:00, regarding patient's condition, outpatient follow-up, next week. 01/05 15:23 Order name: Basic Metabolic Panel; Complete Time: 17:04 snw 01/05 15:23 Order name: CBC with Diff; Complete Time: 17:01 snw 01/05 15:23 Order name: LFT's; Complete Time: 17:04 snw 01/05 15:23 Order name: Magnesium; Complete Time: 17:04 snw 01/05 15:23 Order name: NT PRO-BNP; Complete Time: 17:04 snw 01/05 15:23 Order name: PT-INR; Complete Time: 17:01 snw 01/05 15:17 Order name: CT Chest For PE Angio; Complete Time: 17:47 snw 01/05 15:23 Order name: US Extremity Venous W Compression [place]; Complete Time: 16:14 snw 01/05 15:23 Order name: Troponin (emerg Dept Use Only); Complete Time: 17:04 snw 01/05 15:23 Order name: EKG; Complete Time: 15:25 snw 01/05 15:23 Order name: Cardiac monitoring; Complete Time: 16:47 snw 01/05 15:23 Order name: EKG - Nurse/Tech; Complete Time: 16:48 snw 01/05 15:23 Order name: IV Saline Lock; Complete Time: 16:48 snw 01/05 15:23 Order name: Labs collected and sent; Complete Time: 16:48 snw 01/05 15:23 Order name: O2 Per Protocol; Complete Time: 16:19 snw 01/05 15:23 Order name: O2 Sat Monitoring; Complete Time: 16:19 snw Administered Medications: 16:50 Drug: NS 0.9% 500 ml Route: IV; Rate: bolus; Site: left forearm; ae4 17:20 Follow up: IV Status: Completed infusion ae4 17:27 Drug: Magnesium 400 mg Route: PO; ae4 18:12 Follow up: Response: No adverse reaction ae4 Disposition: 01/06 07:43 Co-signature as Attending Physician, Gio Fletcher MD I agree with the assessment and sallie plan of care. Disposition: 01/05/19 18:10 Discharged to Home. Impression: Malaise and fatigue. - Condition is Stable. - Discharge Instructions: Hypertension, Fatigue. - Medication Reconciliation Form, Thank You Letter, Antibiotic Education, Prescription Opioid Use form. - Follow up: Ryan Tirado MD; When: 1 week; Reason: Recheck today's complaints, Continuance of care, Re-evaluation by your physician. Follow up: Emergency Department; When: As needed; Reason: Worsening of condition. Signatures: Dispatcher [employer] Gio Carrasco MD MD cha Therrien, Shelly, HYDROSTATIC TESTER-C HYDROSTATIC TESTER-Csnw Cally Mccarthy RN RN tw2 Juan Antonio Ridley RN RN ae4 Corrections: (The following items were deleted from the chart) 01/05 18:58 18:10 01/05/2019 18:10 Discharged to Home. Impression: Malaise and fatigue. Condition ae4 is Stable. Forms are Medication Reconciliation Form, Thank You Letter, Antibiotic Education, Prescription Opioid Use. Follow up: Ryan Tirado; When: 1 week; Reason: Recheck today's complaints, Continuance of care, Re-evaluation by your physician. Follow up: Emergency Department; When: As needed; Reason: Worsening of condition. snw
[2019-01-05 19:53] VITALS: TEMP 98
[2019-01-05 19:54] VITALS: O2SAT 98
[2019-01-05 19:55] VITALS: BP 196/87
--- NOTE | 2019-01-06 07:39 | EKG ---
Test Date: 2019-01-05 Test Time: 16:34:17 Power Machine Operator: HERNANDEZ MEASUREMENT RESULTS: Intervals: Rate: 79 SD: 192 QRSD: 102 QT: 398 QTc: 456 [place]: P: 59 SD: 192 QRS: 38 T: 81 INTERPRETIVE STATEMENTS: Normal sinus rhythm Nonspecific T wave abnormality Abnormal ECG Compared to ECG 06/04/2017 11:02:26 No significant changes Electronically Signed On 01-06-19 07:38:24 CDT by Manpreet Vazquez
== END 2019-01-05 18:58 | disposition home or self-care (01) ==
LOC: ER 14:50
DX: R53.81 Other malaise (principal); I10 Essential (primary) hypertension; E11.9 Type 2 diabetes mellitus without complications; Z79.4 Long term (current) use of insulin; Z79.82 Long term (current) use of aspirin; Z85.528 Personal history of other malignant neoplasm of kidney; Z88.8 Allergy status to other drugs, medicaments and biological substances
CPT/HCPCS: 93005; 85025; 80048; 36415; 83735; 85610; 80076; 84484; 83880; 71275; 93970; Q9967; 99284

== ENCOUNTER 2019-03-27 16:22 | Inpatient (IN) | payer OTHER ==
--- OUTSIDE RECORDS SUMMARY | 2019-03-27 16:25 | XMS REPORT | Summary of Care ---
:1950 Author Organization [facility] Address [address] [place] [address] Care Team Providers Name Role Phone Ryan Tirado Primary Care Provider Reason for Visit Reason Comments Follow-up Follow up visit on left knee OA Encounter Details Date Type Department Care Team Description 03/03/2019 Office Visit [facility] Maxwell Boateng Primary osteoarthritis Orthopaedic Surgery- MD José of left knee (Primary [place] [address], [address] [place] [phone] Allergies Active Allergy Reactions Severity Noted Date Comments Droperidol Anxiety 05/16/2015 Feels like crawling in his skin Feels like crawling in his skin documented as of this encounter (statuses as of 03/03/2019) Medications Medication Sig Dispensed Refills Start Date End Date Status atorvastatin (LIPITOR) 10 0 05/15/2015 Active mg tablet ONETOUCH ULTRA TEST strip 0 05/02/2015 Active bumetanide (BUMEX) 1 mg 0 05/01/2015 Active tablet cloniDINE (CATAPRES) 0.3 0 04/28/2015 Active mg tablet DULoxetine (CYMBALTA) 60 0 03/29/2015 Active mg capsule doxazosin (CARDURA) 4 mg 0 03/06/2015 Active tablet TRULICITY 1.5 mg/0.5 mL 0 05/04/2015 Active PnIj glimepiride (AMARYL) 4 mg 0 02/17/2015 Active tablet ONE TOUCH DELICA 33 gauge 0 05/02/2015 Active Misc losartan (COZAAR) 100 mg 0 04/24/2015 Active tablet metFORMIN (GLUCOPHAGE) 0 04/24/2015 Active 1,000 mg tablet ramipril (ALTACE) 5 mg 0 03/28/2015 Active capsule traZODONE (DESYREL) 50 mg 0 03/29/2015 Active tablet propranolol LA (INDERAL 0 03/06/2015 Active LA) 120 mg 24 hr capsule pramipexole (MIRAPEX) 0.5 0 02/25/2015 Active mg tablet CANAGLIFLOZIN/METFORMIN Take by mouth. 0 Active HCL (INVOKAMET ORAL) traMADOL (ULTRAM) 50 mg 0 07/09/2016 Active tablet spironolactone 0 07/09/2016 Active (ALDACTONE) 50 mg tablet rOPINIRole (REQUIP) 1 mg 0 06/18/2016 Active tablet documented as of this encounter (statuses as of 03/03/2019) Active Problems Not on filedocumented as of this encounter (statuses as of 03/03/2019) Social History Tobacco Use Types Packs/Day Years Used Date Never Smoker Alcohol Use Drinks/Week oz/Week Comments Yes 2 Glasses of wine 1.2 Sex Assigned at Date Recorded Not on file Job Start Date Occupation Industry Not on file Not on file Not on file Travel History Travel Start Travel End No recent travel history available. documented as of this encounter Last Filed Vital Signs Vital Sign Reading Time Taken Comments Blood Pressure 145/77 03/03/2019 3:33 PM CDT Pulse 80 03/03/2019 3:33 PM CDT Temperature - - Respiratory Rate 18 03/03/2019 3:33 PM CDT Oxygen Saturation - - Inhaled Oxygen Concentration - - Weight 124.7 kg (275 lb) 03/03/2019 3:33 PM CDT Height 177.8 cm (5' 10") 03/03/2019 3:33 PM CDT Body Mass Index 39.46 03/03/2019 3:33 PM CDT documented in this encounter Progress Notes Maxwell Boateng MD - 03/03/2019 3:30 PM CDT Guanakito Guzman is a 68 year old male Chief Complaint Patient presents with Follow-up Follow up visit on left knee OA Vitals: 03/03/19 1533 BP: (!) 145/77 BP Location: Left arm Patient Position: Sitting BP CUFF SIZE: Adult Large Pulse: 80 Resp: 18 Weight: 124.7 kg (275 lb) Height: 70" (177.8 cm) [facility]/pharmacy #[id number] - [place], [place] - [address] AT [facility] All Vitals taken, allergies and all medications reviewed, fall risk assessed. Pain level 4/10. NANDO PEDERSON MA 03/03/2019 3:39 PM Guanakito Guzman is a 68 year old male. Knee Pain The incident occurred more than 1 week ago. The incident occurred at home. There was no injury mechanism. The pain is present in the left knee. The quality of the pain is described as aching. The pain is at a severity of 4/10. The pain is moderate. The pain has been intermittent since onset. The symptoms are aggravated by movement, palpation and weight bearing. He has tried immobilization, NSAIDs andnon-weight bearing for the symptoms. The treatment provided mild relief. Allergies Guanakito is allergic to droperidol. Medications Outpatient Medications Prior to Visit Medication Sig Dispense Refill CANAGLIFLOZIN/METFORMIN HCL (INVOKAMET ORAL) Take by mouth. rOPINIRole (REQUIP) 1 mg tablet spironolactone (ALDACTONE) 50 mg tablet traMADOL (ULTRAM) 50 mg tablet atorvastatin (LIPITOR) 10 mg tablet bumetanide (BUMEX) 1 mg tablet cloniDINE (CATAPRES) 0.3 mg tablet doxazosin (CARDURA) 4 mg tablet DULoxetine (CYMBALTA) 60 mg capsule glimepiride (AMARYL) 4 mg tablet losartan (COZAAR) 100 mg tablet metFORMIN (GLUCOPHAGE) 1,000 mg tablet ONE TOUCH DELICA 33 gauge [facility] ONETOUCH ULTRA TEST strip pramipexole (MIRAPEX) 0.5 mg tablet propranolol LA (INDERAL LA) 120 mg 24 hr capsule ramipril (ALTACE) 5 mg capsule traZODONE (DESYREL) 50 mg tablet TRULICITY 1.5 mg/0.5 mL PnIj No facility-administered medications prior to visit. 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 Social History Socioeconomic History Marital status: Spouse name: Not on file Number of children: Not on file Years of education: Not on file Highest education level: Not on file Occupational History Not on file Social Needs Financial resource strain: Not on file Food insecurity: Worry: Not on file Inability: Not on file Transportation needs: Medical: Not on file Non-medical: Not on file Tobacco Use Smoking status: Never Smoker Substance and Sexual Activity Alcohol use: Yes Alcohol/week: 1.2 oz Types: 2 Glasses of wine per week Drug use: Not on file Sexual activity: Not on file Lifestyle Physical activity: Days per week: Not on file Minutes per session: Not on file Stress: Not on file Relationships Social connections: Talks on phone: Not on file Gets together: Not on file Attends congregational service: Not on file Active member of club or organization: Not on file Attends meetings of clubs or organizations: Not on file Relationship status: Not on file Intimate partner violence: Fear of current or ex partner: Not on file Emotionally abused: Not on file Physically abused: Not on file Forced sexual activity: Not on file Other Topics Concern Not on file Social History Narrative Not on file Family History Problem Relation Age of Onset Heart Father Cancer Maternal Grandmother Review of Systems Constitutional: Negative. HENT: Negative. Eyes: Negative. Respiratory: Negative. Breasts: Negative. Cardiovascular: Negative. Gastrointestinal: Negative. Genitourinary: Negative. Musculoskeletal: Positive for joint swelling. Skin: Negative. Neurological: Negative. Psychiatric/Behavioral: Negative. Endocrine: Endocrine negative Vital Signs BP (!) 145/77 (BP Location: Left arm, Patient Position: Sitting, BP CUFF SIZE: Adult Large) | Pulse80 | Resp 18 | Ht 70" (177.8 cm) | Wt 124.7 kg (275 lb) | BMI 39.46 kg/m Physical Exam Constitutional: He is oriented to person, place, and time. He appears well- developed and well-nourished. HENT: Head: Normocephalic. Eyes: Pupils are equal, round, and reactive to light. Conjunctivae and EOM are normal. Neck: Normal range of motion. Neck supple. Cardiovascular: Normal rate. Pulmonary/Chest: Effort normal and breath sounds normal. Abdominal: Soft. Bowel sounds are normal. Musculoskeletal: Left knee: He exhibits decreased range of motion, swelling and effusion. Tenderness found. Medial joint line tenderness noted. Medial joint line tenderness Neurological: He is alert and oriented to person, place, and time. He has normal reflexes. Skin: Skin is warm and dry. Psychiatric: He has a normal mood and affect. His behavior is normal. Judgment and thought content normal. Nursing note and vitals reviewed. Assessment/Plan Diagnosis Left knee osteoarthritis Plan : Patient's knee(s) is/are wearing out and will eventually need a total knee replacement but will take preventative measures prior to discussing surgery. Will take this in a stepwise fashion firstbeginning with NSAIDs. Next would be a cortisone injection. A cortisone injection will only help with the inflammatory response. Cortisone injections will be given no less than 3 months in a 3 year time frame. Hymalecular weight hylaronic acid injection series would follow cortisone injections. If theresponse is well to the cortisone this is usually an indication of how one will respond to Hymalecular weight hylaronic injections. These injections are given once weekly to the affected knee for 3 weeks. This can give at least 6 months of relief in 3 out of 4 people. If these steps do not help the last option would be to have a total knee replacement. Cortisone injection didn't last as long as previous injections. Will order orthovisc. Follow up whenapproved. documented in this encounter Plan of Treatment Health Maintenance Due Date Last Done Comments HEPATITIS C (HCV) SCREEN 1950 DTaP,Tdap,and Td Vaccines (1 - Tdap) 1968 COLONOSCOPY 10/20/1999 Zoster Recombinant Vaccine (SHINGRIX) (1 of 2) 10/20/1999 Medicare Wellness Visit 2014 PNEUMOCOCCAL VACCINES 65+ (1 of 2 - PCV13) 2014 INFLUENZA VACCINE 04/04/2019 documented as of this encounter Results Not on filedocumented in this encounter Visit Diagnoses Diagnosis Primary osteoarthritis of left knee - Primary Primary localized osteoarthrosis, lower leg documented in this encounter Insurance Payer Benefit Plan / Subscriber ID Effective Dates Phone Address Type Group HUMANA - HUMANA [id number] 2017-Presen Medicare Adv MANAGED MEDICARE t FFS MEDICARE documented as of this encounter
--- OUTSIDE RECORDS SUMMARY | 2019-03-27 16:25 | XMS REPORT | Summary of Care ---
:1950 Author Organization [facility] Address [address] [place] [address] Care Team Providers Name Role Phone Ryan Tirado Primary Care Provider Reason for Visit Reason Comments Follow-up Follow up visit on left knee OA Encounter Details Date Type Department Care Team Description 03/03/2019 Office Visit [facility] Maxwell Boateng Primary osteoarthritis Orthopaedic Surgery- MD José of left knee (Primary [place] [address]) [address], [address] [place] [address] [place] [phone] Allergies Active Allergy Reactions Severity Noted Date [...] kg (275 lb) Height: 70" (177.8 cm) [facility]/pharmacy #[id number] - [place], [place] - [address] AT [facility] All Vitals taken, allergies and all medications [...] mg tablet ONE TOUCH DELICA 33 gauge [facility] ONETOUCH ULTRA TEST strip pramipexole (MIRAPEX) 0.5 [...] file Gets together: Not on file Attends temple service: Not on file Active member of [...] Phone Address Type Group HUMANA - HUMANA [id number] 2017-Presen Medicare Adv MANAGED MEDICARE t FFS MEDICARE documented as of this encounter
--- OUTSIDE RECORDS SUMMARY | 2019-03-27 16:25 | XMS REPORT ---
:1950 [facility] Address [address] [place] [address] Dr. Cody [address] [place] [address] Care Team Providers Name Role Phone Unavailable Unavailable Unavailable Problems This patient has no known problems. Allergies, Adverse Reactions, Alerts This patient has no known allergies or adverse reactions. Medications This patient has no known medications.
--- OUTSIDE RECORDS SUMMARY | 2019-03-27 16:25 | XMS REPORT | Summary of Care ---
:1950 Author Organization [facility] Address [address] [place] [address] Care Team Providers Name Role Phone Ryan Tirado Primary Care Provider Reason for Visit Reason Comments Follow-up Follow up visit on left knee OA Encounter Details Date Type Department Care Team Description 03/03/[address] [facility] Maxwell Boateng Primary osteoarthritis Orthopaedic Surgery- MD José of left knee (Primary [place] [address]) [address], [place] [address] [place] [phone] Allergies Active Allergy Reactions Severity Noted Date [...] kg (275 lb) Height: 70" (177.8 cm) [facility]/pharmacy #[id number] - [place], [place] - [address] AT [facility] All Vitals taken, allergies and all medications [...] mg tablet ONE TOUCH DELICA 33 gauge [facility] ONETOUCH ULTRA TEST strip pramipexole (MIRAPEX) 0.5 [...] file Gets together: Not on file Attends church service: Not on file Active member of [...] Phone Address Type Group HUMANA - HUMANA [id number] 2017-Presen Medicare Adv MANAGED MEDICARE t FFS MEDICARE documented as of this encounter
--- OUTSIDE RECORDS SUMMARY | 2019-03-27 16:26 | XMS REPORT | Summary of Care ---
:1950 Author Organization [facility] - Health Address [address] [place] [address] Care Team Providers Name Role Phone Ryan Tirado Primary Care Provider Encounter Details Date Type Department Care Team Description 03/15/2019 Orders Only [facility] Doctor Unassigned, No [address] [facility] Name [place] [phone] [place] [address] Allergies Active Allergy Reactions Severity Noted Date Comments Droperidol Anxiety 05/16/2015 Feels like crawling in his skin Feels like crawling in his skin documented as of this encounter (statuses as of 03/15/2019) Medications Medication Sig Dispensed Refills Start Date [...] as of this encounter (statuses as of 03/15/2019) Active Problems Not on filedocumented as of this encounter (statuses as of 03/15/2019) Social History Tobacco Use Types Packs/Day Years [...] of this encounter Last Filed Vital Signs Not on filedocumented in this encounter Plan of Treatment Date Type Specialty Care Team Description 03/16/2019 Office Visit Orthopedic Surgery Brendan Malcolm S, [facility] [address] [place] [address] Health Maintenance Due Date Last Done Comments HEPATITIS C (HCV) SCREEN 1950 DTaP,Tdap,and Td Vaccines (1 - Tdap) 1968 COLONOSCOPY 10/20/1999 Zoster Recombinant Vaccine (SHINGRIX) (1 of 2) 10/20/1999 Medicare Wellness Visit 2014 PNEUMOCOCCAL VACCINES 65+ (1 of 2 - PCV13) 2014 INFLUENZA VACCINE 04/04/2019 documented as of this encounter Procedures Procedure Name Priority Date/Time Associated Diagnosis Comments MEDICATION CORRESPONDENCE Routine 03/15/2019 12:01 AM CDT documented in this encounter Results Not on filedocumented in this encounter Insurance Payer Benefit Plan / Subscriber ID Effective Dates Phone Address Type Group HUMANA - HUMANA [id number] 2017-Presen Medicare Adv MANAGED MEDICARE t FFS MEDICARE documented as of this encounter
--- OUTSIDE RECORDS SUMMARY | 2019-03-27 16:26 | XMS REPORT | Summary of Care ---
:1950 Author Organization [facility] Address [address] [place] [address] Care Team Providers Name Role Phone Ryan Tirado Primary Care Provider Reason for Visit Reason Comments Notification Encounter Details Date Type Department Care Team Description 03/09/2019 Telephone [facility] Surgical Brendan Malcolm, PAC Notification Specialties - [place] [address] [facility], [address] [place] [phone] Allergies Active Allergy Reactions Severity Noted Date Comments Droperidol Anxiety 05/16/2015 Feels like crawling in his skin Feels like crawling in his skin documented as of this encounter (statuses as of 03/10/2019) Medications Medication Sig Dispensed Refills Start Date [...] as of this encounter (statuses as of 03/10/2019) Active Problems Not on filedocumented as of this encounter (statuses as of 03/10/2019) Social History Tobacco Use Types Packs/Day Years [...] filedocumented in this encounter Plan of Treatment Health [...] Phone Address Type Group HUMANA - HUMANA [id number] 2017-Pres Medicare Adv MANAGED MEDICARE t FFS MEDICARE documented as of this encounter
--- OUTSIDE RECORDS SUMMARY | 2019-03-27 16:26 | XMS REPORT | Summary of Care ---
:1950 Author Organization [facility] Address [address] [place] [address] Care Team Providers Name Role Phone Ryan Tirado Primary Care Provider Reason for Visit Reason Comments Follow-up Left knee osteoarthritis Encounter Details Date Type Department Care Team Description 03/23/[address] [facility] Brendan Malcolm, Primary osteoarthritis Orthopaedic Surgery- PAC of left knee (Primary [place] [address], [address] [place] [phone] Allergies Active Allergy Reactions Severity Noted Date Comments Droperidol Anxiety 05/16/2015 Feels like crawling in his skin Feels like crawling in his skin documented as of this encounter (statuses as of 03/23/2019) Medications Medication Sig Dispensed Refills Start Date [...] (REQUIP) 1 mg 0 06/18/2016 Active tablet Hospital, Clinic, or Ordered Dose Route Frequency Start Date End Date Status Other Facility Administered Medication sodium hyaluronate 30 mg Intra-articu ONCE 03/23/2019 03/23/2019 Ended (viscosup) (ORTHOVISC) injection 30 mg documented as of this encounter (statuses as of 03/23/2019) Active Problems Not on filedocumented as of this encounter (statuses as of 03/23/2019) Social History Tobacco Use Types Packs/Day Years Used Date Never Smoker Smokeless Tobacco: Never Used Alcohol Use Drinks/Week oz/Week Comments Yes 2 Glasses of wine 1.2 Sex Assigned at Date Recorded Not on file Job Start Date Occupation Industry Not on file Not on file Not on file Travel History Travel Start Travel End No recent travel history available. documented as of this encounter Last Filed Vital Signs Vital Sign Reading Time Taken Comments Blood Pressure - - Pulse - - Temperature - - Respiratory Rate - - Oxygen Saturation - - Inhaled Oxygen Concentration - - Weight 124.7 kg (275 lb) 03/23/2019 3:12 PM CDT Height 177.8 cm (5' 10") 03/23/2019 3:12 PM CDT Body Mass Index 39.46 03/23/2019 3:12 PM CDT documented in this encounter Progress Notes Brendan Malcolm, PAC - 03/23/2019 3:15 PM CDT Cc: Chief Complaint Patient presents with Follow-up Left knee osteoarthritis Patient here for 2nd orthovisc injection to the left knee. Lianna Cornell 2018 3:13 PM Guanakito Guzman is a 68 year old male. HPI Allergies Guanakito is allergic to droperidol. Medications [...] mg tablet ONE TOUCH DELICA 33 gauge Misc ONETOUCH ULTRA TEST strip pramipexole (MIRAPEX) 0.5 [...] file Tobacco Use Smoking status: Never Smoker Smokeless tobacco: Never Used Substance and Sexual Activity Alcohol use: Yes Alcohol/week: 1.2 oz Types: 2 Glasses of wine per week Drug use: Not on file Sexual activity: Not on file Lifestyle Physical activity: Days per week: Not on file Minutes per session: Not on file Stress: Not on file Relationships Social connections: Talks on phone: Not on file Gets together: Not on file Attends samaritan service: Not on file Active member of [...] Psychiatric/Behavioral: Negative. Endocrine: Endocrine negative Vital Signs Ht 70" (177.8 cm) | Wt 124.7 kg (275 lb) | BMI 39.46 kg/m Physical Exam Assessment/Plan Primary osteoarthritis of left knee (primary encounter diagnosis) Comment: 2nd of three injection series Plan: The knee was examined and marked with ultrasound guidance. The skin was then prepped thoroughly 3 times in a bull's-eye fashion with Betadine and then cleaned with alcohol allowing the alcohol tosoak for 30 seconds. Ethyl chloride anesthetic spray was used to provide cryo-anesthesia. Under ultrasound guidance the needle was advanced into the knee joint behind the fat pad and orthovisc prefilled syringe was injected. The site was cleansed with alcohol then dried with a sterile 4 x 4 and a sterile Band-Aid was applied. Patient tolerated procedure well, no reactions were noted. This is a largejoint/intraarticular/ intramuscular injection. Post Injection Recommendations but not required: 1. Avoid physical activity for 48 hours following an injection to keep the knee from swelling. 2. Ice your knee if you have any mild pain or swelling near the injection site. 3. Avoid standing on your feet for more than 1 hour at a time during the first 48 hours following the injection. documented in this encounter Plan of Treatment Health Maintenance Due Date Last Done Comments HEPATITIS C (HCV) SCREEN 1950 DTaP,Tdap,and Td Vaccines (1 - Tdap) 1968 COLONOSCOPY 10/20/1999 Zoster Recombinant Vaccine (SHINGRIX) (1 of 2) 10/20/1999 Medicare Wellness Visit 2014 PNEUMOCOCCAL VACCINES 65+ (1 of 2 - PCV13) 2014 INFLUENZA VACCINE (#1) 2019 documented as of this encounter Results Not on filedocumented in this encounter Visit Diagnoses Diagnosis Primary osteoarthritis of left knee - Primary Primary localized osteoarthrosis, lower leg documented in this encounter Administered Medications Medication Order MAR Action Action Date Dose Rate Site sodium hyaluronate (viscosup) Given 03/23/2019 3:35 PM CDT 30 mg Left Knee (ORTHOVISC) injection 30 mg 30 mg, Intra-articular, ONCE, 1 dose, 03/23/19 at 1615, Routine documented in this encounter Insurance Payer Benefit Plan / Subscriber ID Effective Dates Phone Address Type Group HUMANA - HUMANA [id number] 2017-Presen Medicare Adv MANAGED MEDICARE t S MEDICARE documented as of this encounter
--- OUTSIDE RECORDS SUMMARY | 2019-03-27 16:26 | XMS REPORT | Summary of Care ---
:1950 Author Organization [facility] - [facility] Address [address] [place] [address] Care Team Providers Name Role Phone Ryan Tirado Primary Care Provider Reason for Visit Reason Comments Follow-up Left knee osteoarthritis Encounter Details Date Type Department Care Team Description 03/23/2019 [facility] Visit [facility] Brendan Malcolm, Primary osteoarthritis Orthopaedic Surgery- PAC of left knee (Primary [place] [address]) [address], [address] [place] [phone] Allergies Active Allergy Reactions Severity Noted Date [...] file Gets together: Not on file Attends yazidi service: Not on file Active member of [...] Phone Address Type Group HUMANA - HUMANA [id number] 2017-Presen Medicare Adv MANAGED MEDICARE t S MEDICARE documented as of this encounter
--- OUTSIDE RECORDS SUMMARY | 2019-03-27 16:26 | XMS REPORT | Summary of Care ---
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 / Procedures [place] ARTHROCENTESIS ASPIR&/INJ MAJOR JT/BURSA W/O US [place] ORTHOVISC INJ PER DOSE FOLLOW-UP VISIT MD José S, PAC Orthopedic [address] [place], [place] [address] [address] [place], [place] Phone: [phone] Phone: Encounter Details Date Type Department Care Team Description 03/16/2019 Office Visit [facility] Brendan Malcolm, Primary osteoarthritis Orthopaedic Surgery- PAC of left knee (Primary [place] [address]) [address] [facility], [facility] [place] [address] [place] [phone] Allergies Active Allergy Reactions Severity Noted Date Comments Droperidol Anxiety 05/16/2015 Feels like crawling in his skin Feels like crawling in his skin documented as of this encounter (statuses as of 03/16/2019) Medications Medication Sig Dispensed Refills Start Date [...] Medication sodium hyaluronate 30 mg Intra-articu ONCE 03/16/2019 03/16/2019 Ended (viscosup) (ORTHOVISC) injection 30 mg documented as of this encounter (statuses as of 03/16/2019) Active Problems Not on filedocumented as of this encounter (statuses as of 03/16/2019) Social History Tobacco Use Types Packs/Day Years [...] Sign Reading Time Taken Comments Blood Pressure 84/53 03/16/2019 1:20 PM CDT Pulse 85 03/16/2019 1:20 PM CDT Temperature - - Respiratory Rate - - Oxygen Saturation - - Inhaled Oxygen Concentration - - Weight 124.7 kg (275 lb) 03/16/2019 1:20 PM CDT Height 177.8 cm (5' 10") 03/16/2019 1:20 PM CDT Body Mass Index 39.46 03/16/2019 1:20 PM CDT documented in this encounter Progress Notes Brendan Malcolm, PAC - 03/16/2019 1:30 PM CDT Guanakito Guzman is a 68 year old male Chief Complaint Patient presents with INJECTION 1st Orthovisc injection left knee Vitals: 03/16/19 1320 BP: (!) 84/53 BP Location: Right arm Patient Position: Sitting BP CUFF SIZE: Adult Large Pulse: 85 Weight: 124.7 kg (275 lb) Height: 70" (177.8 cm) [id number] [place], [place] - [address] AT [facility] All Vitals taken, allergies and all medications reviewed, fall risk assessed. Pain level 5/10. NANDO PEDERSON MA 03/16/2019 1:30 PM Guanakito Guzman is a 68 year [...] mg tablet ONE TOUCH DELICA 33 gauge [facility] ONETOUCH ULTRA TEST strip pramipexole (MIRAPEX) 0.5 [...] file Gets together: Not on file Attends yarsanism service: Not on file Active member of [...] Endocrine: Endocrine negative Vital Signs BP (!) 84/53 (BP Location: Right arm, Patient Position: Sitting, BP CUFF SIZE: Adult Large) | Pulse85 | Ht 70" (177.8 cm) | Wt 124.7 kg (275 lb) | BMI 39.46 kg/m Physical Exam Assessment/Plan 1. Primary osteoarthritis of left knee Orthovisc injection in the left knee The knee was examined and marked with ultrasound guidance. The skin was then prepped thoroughly 3 times in a bull's-eye fashion with Betadine and then cleaned with alcohol allowing the alcohol to soak for 30 seconds. Ethyl chloride anesthetic spray was used to provide cryo-anesthesia. Under ultrasoundguidance the needle was advanced into the knee joint behind the fat pad and Orthovisc prefilled syringe was injected. The site was cleansed with alcohol then dried with a sterile 4 x 4 and a sterile Band-Aid was applied. Patient tolerated procedure well, no reactions were noted. This is a large joint /intraarticular/intramuscular injection. Post Injection Recommendations but not required: [...] documented in this encounter Plan of Treatment Date Type Specialty Care Team Description 03/23/2019 Office Visit Orthopedic Surgery Brendan Malcolm PAC [address] [place] [phone] Health Maintenance Due Date Last Done [...] Action Date Dose Rate Site sodium hyaluronate Given by Provider 03/16/2019 1:23 PM 30 mg Left Knee (viscosup) (ORTHOVISC) CDT injection 30 mg 30 mg, Intra-articular, ONCE, 1 dose, 03/16/19 at 1430, Routine documented in this encounter Insurance Payer Benefit Plan / Subscriber ID Effective Dates Phone Address Type Group HUMANA - HUMANA [id number] 2017-Presen Medicare Adv MANAGED MEDICARE t S MEDICARE documented as of this encounter
--- OUTSIDE RECORDS SUMMARY | 2019-03-27 16:26 | XMS REPORT | Summary of Care ---
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 [place] ARTHROCENTESIS ASPIR&/INJ MAJOR JT/BURSA W/O US [place] ORTHOVISC INJ PER DOSE FOLLOW-UP VISIT MD José S, PAC Orthopedic [address] [place], [place] [address] [address] [place], [place] Phone: [phone] Phone: Encounter Details Date Type Department Care Team Description 03/16/2019 Office Visit [facility] Brendan Malcolm, Primary osteoarthritis Orthopaedic Surgery- PAC of left knee (Primary [place] [address]) [address] [facility], [facility] [place] [address] [place] [phone] Allergies Active Allergy Reactions [...] Height: 70" (177.8 cm) [id number] [place], [place] - [address] AT [facility] All Vitals taken, allergies and all [...] mg tablet ONE TOUCH DELICA 33 gauge [facility] ONETOUCH ULTRA TEST strip pramipexole (MIRAPEX) 0.5 [...] file Gets together: Not on file Attends mandaeism service: Not on file Active member of [...] Office Visit Orthopedic Surgery Brendan Malcolm PAC [address] [place] [phone] Health Maintenance Due Date Last Done [...] Phone Address Type Group HUMANA - HUMANA [id number] 2017-Presen Medicare Adv MANAGED MEDICARE t S MEDICARE documented as of this encounter
--- OUTSIDE RECORDS SUMMARY | 2019-03-27 16:26 | XMS REPORT | Summary of Care ---
:1950 Author Organization [facility] - [facility] Address [address] [place] [address] Care Team Providers Name Role Phone Ryan Tirado Primary Care Provider Reason for Visit Reason Comments Follow-up Left knee osteoarthritis Encounter Details Date Type Department Care Team Description 03/23/2019 Office Visit [facility] Brendan Malcolm, Primary osteoarthritis Orthopaedic Surgery- PAC of left knee (Primary [place] [address]) [address], [place] [phone] Allergies Active Allergy Reactions Severity Noted Date [...] file Gets together: Not on file Attends mu-ism service: Not on file Active member of [...] Phone Address Type Group HUMANA - HUMANA [id number] 2017-Presen Medicare Adv MANAGED MEDICARE t S MEDICARE documented as of this encounter
--- OUTSIDE RECORDS SUMMARY | 2019-03-27 16:27 | XMS REPORT | Summary of Care ---
:1950 Author Organization [facility] Address [address] [place] [address] Care Team Providers Name Role Phone Ryan Tirado Primary Care Provider Reason for Visit Reason Comments Follow-up Left knee osteoarthritis Encounter Details Date Type Department Care Team Description 03/23/2019 Office Visit [facility] Brendan Malcolm, Primary osteoarthritis Orthopaedic Surgery- PAC of left knee (Primary [place] [address]) [address], [place] [phone] [phone] Allergies Active Allergy Reactions Severity Noted Date [...] file Gets together: Not on file Attends islam service: Not on file Active member of [...] Phone Address Type Group HUMANA - HUMANA [id number] 2017-Presen Medicare Adv MANAGED MEDICARE t S MEDICARE documented as of this encounter
[2019-03-27] MEDS ORDERED: NA CHLORIDE 0.9% 1,000 ML ONE ×2 (16:49→19:00)
[2019-03-27 16:56] LABS: Absolute Lymphocytes (CBC) 0.5 K/uL (0.7-4.9); Basophils % 0.7 % (0-1.3); Hematocrit 42.2 % (39.6-49.0); Lymphocytes % 3.6 % (15.3-44.8); MPV 8.4 fL (7.6-11.3); RBC Red Blood Cell Count 4.88 M/uL (4.33-5.43)
[2019-03-27 16:57] LABS: Protime INR 1.14
[2019-03-27] MEDS ORDERED: CEFTRIAXONE 1000 MG/VIAL ONE (17:09)
[2019-03-27 17:14] LABS: ALT/SGPT 21 U/L (12-78); AST/SGOT 13 U/L (15-37); Albumin 3.1 g/dL (3.4-5.0); Alkaline Phosphatase 49 U/L (45-117); BUN Blood Urea Nitrogen 30 mg/dL (7-18); Bicarbonate 30 mmol/L (21-32); Bilirubin Direct 0.3 mg/dL (0-0.2); Bilirubin Total 1.1 mg/dL (0.2-1.0); Glucose Level 215 mg/dL (74-106); Lipase 67 U/L (73-393); Magnesium 1.7 mg/dL (1.8-2.4); NT PRO-BNP 1039 pg/mL (<125); Potassium 3.7 mmol/L (3.5-5.1); Protein, Total 6.9 g/dL (6.4-8.2); Sodium Level 134 mmol/L (136-145); Troponin (Emerg Dept Use Only) < 0.02 ng/mL (0.0-0.045)
--- NOTE | 2019-03-27 17:15 | RAD REPORT ---
EXAM DESCRIPTION: RAD - Chest Single View - 03/27/2019 4:58 pm CLINICAL HISTORY: Cough, weakness COMPARISON: May 2017 TECHNIQUE: AP portable chest image was obtained 1654 hours . FINDINGS: No acute lung parenchymal process. Interstitial pattern not substantially different from c omparison. Heart size and mediastinal silhouette not substantially different from comparison. Trachea is midline. No measurable pleural effusion and no pneumothorax. No acute bony abnormality seen. No a cute aortic findings suspected. IMPRESSION: No acute cardiopulmonary process. No suspicious change from comparison.
[2019-03-27 17:34] LABS: Blood Morphology Comment NOT SEEN (NOT SEEN); Platelet Estimate ADEQ; Urine White Blood Cell Casts OK
[2019-03-27] MEDS ORDERED: MAGNESIUM SULFATE 1 gm IVPB 1 GM/100 ML BAG IV ONE (17:52)
--- NOTE | 2019-03-27 17:55 | RAD REPORT ---
EXAM DESCRIPTION: CT - Head Brain Wo Cont - 03/27/2019 5:37 pm CLINICAL HISTORY: Weakness, dizziness, syncope, history renal carcinoma COMPARISON: None. TECHNIQUE: Axial 5 mm thick images of the head were obtained without IV contrast. All CT scans are performed using dose optimization technique as appropriate and may include automated exposure control or mA/KV adjustment according to patient size. FINDINGS: No intracranial hemorrhage, mass, edema or shift of mid-line structures. No acute infarcti on changes seen. No abnormal extra-axial fluid collections. Mild atrophy and chronic ischemic changes are present. Ventricles are in proportion to volume loss. Intracranial findings are similar 2008. Mastoid air cells and visualized portions of the paranasal sinuses are clear. No acute bony findings. IMPRESSION: Negative non-contrast CT head examination for acute finding Minimal atrophy and chronic ischemic changes similar to comparison.
--- NOTE | 2019-03-27 18:11 | ER ---
Nurse's Notes [facility] Name: Guanakito Guzman Age: 68 yrs Sex: Male : 1950 Arrival Date: 03/27/2019 Time: 16:26 Bed 2 Private MD: Diagnosis: Weakness;Unspecified kidney failure;Hypomagnesemia;Elevated white blood cell count;Obesity, unspecified;Type 1 diabetes mellitus Presentation: 03/27 16:27 Presenting complaint: Patient states: GENERAL WEAKNESS x3 DAYS. Transition of care: ph patient was not received from another setting of care. Onset of symptoms is unknown. Risk Assessment: Do you want to hurt yourself or someone else? Patient reports no desire to harm self or others. Initial Sepsis Screen: Does the patient meet any 2 criteria? HR > 90 bpm. No. Patient's initial sepsis screen is negative. Does the patient have a suspected source of infection? No. Patient's initial sepsis screen is negative. Care prior to arrival: None. 16:27 Method Of Arrival: Wheelchair ph 16:27 Acuity: SHAILA 2 ph Triage Assessment: 16:27 General: Appears in no apparent distress. comfortable, obese, Behavior is cooperative, ph appropriate for age, anxious. Pain: Denies pain. EENT: No deficits noted. Neuro: No deficits noted. Neuro: Reports weakness. Cardiovascular: Rhythm is sinus tachycardia. Respiratory: No deficits noted. GI: No signs and/or symptoms were reported involving the gastrointestinal system. : No signs and/or symptoms were reported regarding the genitourinary system. Derm: No deficits noted. Musculoskeletal: No deficits noted. Historical: - Allergies: 16:51 Inapsine; ph - Home Meds: 16:51 aspirin 81 mg Oral chew 1 tab once daily [Active]; basaglar insulin [Active]; clonidine ph HCl 0.3 mg Oral tab [Active]; doxazosin 4 mg oral tab 1 tab once daily [Active]; gabapentin 100 mg oral cap 1 caps 3 times per day [Active]; Linzess 290 mcg oral cap 1 cap once daily [Active]; ropinirole 1 mg Oral tab 0.5 tab 3 times per day [Active]; venlafaxine 150 mg oral cp24 1 cap once daily [Active]; Bystolic 20 mg oral tab 1 tab once daily [Active]; tramadol 50 mg Oral tab 1 tab every 6 hours [Active]; Novolog 100 unit/mL Sub-Q soln [Active]; Victoza 2-Cecilio 0.6 mg/0.1 mL (18 mg/3 mL) subcutaneous pnij 0.2 mL once daily [Active]; - PMHx: 16:51 Diabetes - IDDM; Hypertension; kidney cancer; ph - Immunization history:: Adult Immunizations up to date. - Social history:: Smoking status: Patient/guardian denies using tobacco. - Ebola Screening: : No symptoms or risks identified at this time. - Family history:: not pertinent. Screenin:31 Abuse screen: Denies threats or abuse. Denies injuries from another. Nutritional ph screening: No deficits noted. Tuberculosis screening: No symptoms or risk factors identified. Fall Risk None identified. Assessment: 16:30 General: SEE TRIAGE NOTE. ph 17:37 Reassessment: PT RETURNED FROM CT. bp 20:51 General: Behavior is calm, cooperative, appropriate for age. Pain: Denies pain. Neuro: tl1 Level of Consciousness is awake, alert, confused, Oriented to person, place, time, situation. Cardiovascular: Denies chest pain. Respiratory: Airway is patent Trachea midline Respiratory effort is even, unlabored, Breath sounds are clear bilaterally. GI: Abdomen is non-distended, obese, Bowel sounds present X 4 quads. : No signs and/or symptoms were reported regarding the genitourinary system. 20:52 Reassessment: Patient denies pain at this time. Patient states feeling better. Patient tl1 states symptoms have improved. Vital Signs: 16:27 BP 158 / 80; Pulse 106; Resp 29; Temp 97.9; Pulse Ox 99% ; Weight 127.01 kg; Height 5 ph ft. 10 in. (177.80 cm); 17:38 BP 159 / 84; Pulse 101; Resp 16; Pulse Ox 96% ; bp 19:04 BP 142 / 76; Pulse 96; Resp 17; Pulse Ox 96% on R/A; Pain 0/10; tl1 20:48 BP 147 / 78; Pulse 88; Resp 17; Temp 98; Pulse Ox 99% ; Pain 0/10; tl1 16:27 Body Mass Index 40.18 (127.01 kg, 177.80 cm) ph ED Course: 16:26 Patient arrived in ED. ph 16:27 Arm band placed on right wrist. ph 16:28 Triage completed. ph 16:31 Patient has correct armband on for positive identification. Bed in low position. Call ph light in reach. Side rails up X2. Adult w/ patient. 16:35 EKG done, by ED staff, reviewed by Gio Fletcher MD. em1 16:38 Gio Fletcher MD is Attending Physician. sallie 16:40 Missed attempt(s): 20 gauge in right antecubital area. Bleeding controlled, band aid ss applied, catheter tip intact. 16:49 Inserted saline lock: 22 gauge in left hand, using aseptic technique. Blood collected. ss 16:52 Jayant Carrero, RN is Primary Nurse. bp 16:56 XRAY Chest (1 view) In Process Unspecified. EDMS 17:38 CT Head Brain wo Cont In Process Unspecified. EDMS 17:38 CT Stone Protocol In Process Unspecified. EDMS 18:03 Ryan Tirado MD is Hospitalizing Provider. sallie 21:15 No provider procedures requiring assistance completed. Patient admitted, IV remains in tl1 place. Administered Medications: 17:00 Drug: NS 0.9% 1000 ml Route: IV; Rate: 125 ml/hr; Site: left hand; bp 21:15 Follow up: IV Status: Completed infusion; IV Intake: 1000ml tl1 17:15 Drug: Rocephin 1 grams Route: IV; Rate: per protocol; Site: left hand; rv 18:59 Follow up: IV Status: Completed infusion rv 18:02 Drug: Magnesium Sulfate 1 grams Route: IVPB; Infused Over: 1 hrs; Site: left hand; bp 18:59 Follow up: IV Status: Completed infusion rv 19:04 Drug: NS 0.9% 1000 ml Route: IV; Rate: 1 bolus; Site: left antecubital; tl1 20:49 Follow up: IV Status: Completed infusion; IV Intake: 1000ml tl1 Point of Care Testing: Blood Glucose: 16:45 Blood Glucose: 208 mg/dL; ss Ranges: Intake: 20:49 IV: 1000ml; Total: 1000ml. tl1 21:15 IV: 1000ml; Total: 2000ml. tl1 Outcome: 18:09 Decision to Hospitalize by Provider. sallie 20:52 Admitted to Tele accompanied by tech, via stretcher, with chart, Report called to tl1 Linda BARON 20:52 Condition: good 20:52 Instructed on the need for admit. 21:16 Patient left the ED. tl1 Signatures: Dispatcher [employer] EDGio Rao MD MD cha Martinez, Eric em1 Anle Alexander, RN RN ss Terri Beauchamp RN RN tl1 Roxy Alas RN RN ph Peltier, Brian RN RN Jeffrey Tenorio RN RN rv
--- NOTE | 2019-03-27 18:12 | EDPHYS ---
Physician Documentation [facility] Name: Guanakito Guzman Age: 68 yrs Sex: Male : 1950 Arrival Date: 03/27/2019 Time: 16:26 Bed 2 Private MD: ED Physician Gio Fletcher HPI: 03/27 17:08 This 68 yrs old Male presents to ER via Wheelchair with complaints of General sallie Weakness. Historical: - Allergies: 16:51 Inapsine; ph - Home Meds: 16:51 aspirin 81 mg Oral chew 1 tab once daily [Active]; basaglar insulin [Active]; clonidine ph HCl 0.3 mg Oral tab [Active]; doxazosin 4 mg oral tab 1 tab once daily [Active]; gabapentin 100 mg oral cap 1 caps 3 times per day [Active]; Linzess 290 mcg oral cap 1 cap once daily [Active]; ropinirole 1 mg Oral tab 0.5 tab 3 times per day [Active]; venlafaxine 150 mg oral cp24 1 cap once daily [Active]; Bystolic 20 mg oral tab 1 tab once daily [Active]; tramadol 50 mg Oral tab 1 tab every 6 hours [Active]; Novolog 100 unit/mL Sub-Q soln [Active]; Victoza 2-Cecilio 0.6 mg/0.1 mL (18 mg/3 mL) subcutaneous pnij 0.2 mL once daily [Active]; - PMHx: 16:51 Diabetes - IDDM; Hypertension; kidney cancer; ph - Immunization history:: Adult Immunizations up to date. - Social history:: Smoking status: Patient/guardian denies using tobacco. - Ebola Screening: : No symptoms or risks identified at this time. - Family history:: not pertinent. ROS: 17:09 Constitutional: Negative for fever, chills, and weight loss, Eyes: Negative for injury, sallie pain, redness, and discharge, ENT: Negative for injury, pain, and discharge, Neck: Negative for injury, pain, and swelling, Cardiovascular: Negative for chest pain, palpitations, and edema, Respiratory: Negative for shortness of breath, cough, wheezing, and pleuritic chest pain, Abdomen/GI: Negative for abdominal pain, nausea, vomiting, diarrhea, and constipation, Back: Negative for injury and pain, : Negative for injury, bleeding, discharge, and swelling, Skin: Negative for injury, rash, and discoloration, Psych: Negative for depression, anxiety, suicide ideation, homicidal ideation, and hallucinations, Allergy/Immunology: Negative for hives, rash, and allergies, Endocrine: Negative for neck swelling, polydipsia, polyuria, polyphagia, and marked weight changes, Hematologic/Lymphatic: Negative for swollen nodes, abnormal bleeding, and unusual bruising. 17:09 MS/extremity: Positive for 17:09 Neuro: Positive for weakness. Exam: 17:09 Constitutional: This is a well developed, well nourished patient who is awake, alert, sallie and in no acute distress. Head/Face: Normocephalic, atraumatic. Eyes: Pupils equal round and reactive to light, extra-ocular motions intact. Lids and lashes normal. Conjunctiva and sclera are non-icteric and not injected. Cornea within normal limits. Periorbital areas with no swelling, redness, or edema. ENT: Nares patent. No nasal discharge, no septal abnormalities noted. Tympanic membranes are normal and external auditory canals are clear. Oropharynx with no redness, swelling, or masses, exudates, or evidence of obstruction, uvula midline. Mucous membranes moist. Neck: Trachea midline, no thyromegaly or masses palpated, and no cervical lymphadenopathy. Supple, full range of motion without nuchal rigidity, or vertebral point tenderness. No Meningismus. Chest/axilla: Normal chest wall appearance and motion. Nontender with no deformity. No lesions are appreciated. Cardiovascular: Regular rate and rhythm with a normal S1 and S2. No gallops, murmurs, or rubs. Normal PMI, no JVD. No pulse deficits. Respiratory: Lungs have equal breath sounds bilaterally, clear to auscultation and percussion. No rales, rhonchi or wheezes noted. No increased work of breathing, no retractions or nasal flaring. Abdomen/GI: Soft, non-tender, with normal bowel sounds. No distension or tympany. No guarding or rebound. No evidence of tenderness throughout. Back: No spinal tenderness. No costovertebral tenderness. Full range of motion. Male : Normal genitalia with no discharge or lesions. Skin: Warm, dry with normal turgor. Normal color with no rashes, no lesions, and no evidence of cellulitis. MS/ Extremity: Pulses equal, no cyanosis. Neurovascular intact. Full, normal range of motion. Psych: Awake, alert, with orientation to person, place and time. Behavior, mood, and affect are within normal limits. 17:09 Neuro: Orientation: is normal, appropriate for stated age, no acute changes, Mentation: is normal, appropriate for stated age, no acute changes, Motor: moves all fours, Sensation: no obvious gross deficits, appropriate no acute changes, Gait: not tested. seizure activity, is not displayed by the patient. Vital Signs: 16:27 BP 158 / 80; Pulse 106; Resp 29; Temp 97.9; Pulse Ox 99% ; Weight 127.01 kg; Height 5 ph ft. 10 in. (177.80 cm); 17:38 BP 159 / 84; Pulse 101; Resp 16; Pulse Ox 96% ; bp 19:04 BP 142 / 76; Pulse 96; Resp 17; Pulse Ox 96% on R/A; Pain 0/10; tl1 20:48 BP 147 / 78; Pulse 88; Resp 17; Temp 98; Pulse Ox 99% ; Pain 0/10; tl1 16:27 Body Mass Index 40.18 (127.01 kg, 177.80 cm) ph MDM: 16:38 Patient medically screened. [facility] 17:13 Data reviewed: vital signs, nurses notes, lab test result(s), EKG, radiologic studies, [facility] CT scan, plain films. 03/27 16:39 Order name: Basic Metabolic Panel; Complete Time: 17:44 [facility] 03/27 16:39 Order name: CBC with Diff; Complete Time: 17:44 [facility] 03/27 16:39 Order name: LFT's; Complete Time: 17:44 [facility] 03/27 16:39 Order name: Magnesium; Complete Time: 17:44 [facility] 03/27 16:39 Order name: NT PRO-BNP; Complete Time: 17:44 [facility] 03/27 16:39 Order name: PT-INR; Complete Time: 17:06 [facility] 03/27 16:39 Order name: Troponin (emerg Dept Use Only); Complete Time: 17:44 [facility] 03/27 16:39 Order name: XRAY Chest (1 view); Complete Time: 17:44 [facility] 03/27 16:39 Order name: Lipase; Complete Time: 17:44 [facility] 03/27 16:39 Order name: Urine Culture [facility] 03/27 16:39 Order name: Blood Culture Adult (2) [facility] 03/27 17:05 Order name: CT Head Brain wo Cont; Complete Time: 18:00 [facility] 03/27 17:07 Order name: CT Stone Protocol; Complete Time: 19:24 [facility] 03/27 17:07 Order name: CBC Smear Scan; Complete Time: 17:44 [facility] 03/27 16:39 Order name: EKG; Complete Time: 16:43 [facility] 03/27 16:39 Order name: Cardiac monitoring; Complete Time: 16:49 [facility] 03/27 16:39 Order name: EKG - Nurse/Tech; Complete Time: 16:49 [facility] 03/27 16:39 Order name: IV Saline Lock; Complete Time: 16:49 [facility] 03/27 16:39 Order name: Labs collected and sent; Complete Time: 16:49 [facility] 03/27 16:39 Order name: O2 Per Protocol; Complete Time: 16:49 [facility] 03/27 16:39 Order name: O2 Sat Monitoring; Complete Time: 16:49 [facility] 03/27 18:57 Order name: CONS Physician Consult EDMS Administered Medications: 17:00 Drug: NS 0.9% 1000 ml Route: IV; Rate: 125 ml/hr; Site: left hand; bp 21:15 Follow up: IV Status: Completed infusion; IV Intake: 1000ml tl1 17:15 Drug: Rocephin 1 grams Route: IV; Rate: per protocol; Site: left hand; rv 18:59 Follow up: IV Status: Completed infusion rv 18:02 Drug: Magnesium Sulfate 1 grams Route: IVPB; Infused Over: 1 hrs; Site: left hand; bp 18:59 Follow up: IV Status: Completed infusion rv 19:04 Drug: NS 0.9% 1000 ml Route: IV; Rate: 1 bolus; Site: left antecubital; tl1 20:49 Follow up: IV Status: Completed infusion; IV Intake: 1000ml tl1 Point of Care Testing: Blood Glucose: 16:45 Blood Glucose: 208 mg/dL; ss Ranges: Critical Glucose Levels:Adult <50 mg/dl or >400 mg/dl <40 mg/dl or >180 mg/dl Disposition: 03/27/19 18:09 Hospitalization ordered by Ryan Tirado for Inpatient Admission. Preliminary diagnosis are Weakness, Unspecified kidney failure, Hypomagnesemia, Elevated white blood cell count, Obesity, unspecified, Type 1 diabetes mellitus. - Bed requested for Telemetry/MedSurg (Inpatient). - Status is Inpatient Admission. tl1 - Condition is Fair. - Problem is new. - Symptoms have improved. UTI on Admission? No Signatures: Dispatcher [employer] EDGio Rao MD MD cha Lasagna, Tonya RN RN tl1 Roxy Alas RN RN Delfina Cano RN RN Jayant Carrero, RN RN Jeffrey Andrews, RN RN rv Corrections: (The following items were deleted from the chart) 20:19 18:09 Hospitalization Ordered by Ryan Tirado MD for Inpatient Admission. Preliminary cg diagnosis is Weakness; Unspecified kidney failure; Hypomagnesemia; Elevated white blood cell count; Obesity, unspecified; Type 1 diabetes mellitus. Bed requested for Telemetry/MedSurg (Inpatient). Status is Inpatient Admission. Condition is Fair. Problem is new. Symptoms have improved. UTI on Admission? No. sallie 21:16 20:19 03/27/2019 18:09 Hospitalization Ordered by Ryan Tirado MD for Inpatient tl1 Admission. Preliminary diagnosis is Weakness; Unspecified kidney failure; Hypomagnesemia; Elevated white blood cell count; Obesity, unspecified; Type 1 diabetes mellitus. Bed requested for Telemetry/MedSurg (Inpatient). Status is Inpatient Admission. Condition is Fair. Problem is new. Symptoms have improved. UTI on Admission? No. cg
--- NOTE | 2019-03-27 18:12 | RAD REPORT ---
EXAM DESCRIPTION: CT - Stone Protocol - 03/27/2019 5:37 pm CLINICAL HISTORY: Abdominal pain, abdominal distention, flank pain COMPARISON: None. TECHNIQUE: Axial 5 mm thick images were obtained without oral or IV contrast. The [id number] span s the entirety of the system partially obscuring uppermost abdomen and lung bases. All CT scans are performed using dose optimization technique as appropriate and may include automated exposure control or mA/KV adjustment according to patient size. FINDINGS: There are postsurgical changes with surgical clips and stranding inferior pole of the righ t kidney. 2015 study showed a solid mass projecting from the lower pole. The right ureter is not dila scar. The right ureter is tortuous with scarring or adhesion of the ureter against the lower pole of t he right kidney. No obstructing calculus seen. No nonobstructing calculus in either kidney. Both kidn eys show low-density masses that are probably cysts but are not fully characterized on a noncontrast study. No abnormal perinephric stranding otherwise noted. Isodense masses and pyelonephritis are not excluded on a stone protocol CT scan. No urinary bladder suspicious finding. No significant adrenal f inding. Imaged portions of the liver, spleen and pancreas show no suspicious findings on non-contrast imaging . No gallbladder or biliary tree abnormality identified. No suspicious bowel findings. No appendicitis. No hernia, mass or bulky lymphadenopathy noted. No free air, free fluid or inflammatory stranding. No significant bony abnormality. IMPRESSION: No hydronephrosis, obstructing calculus or acute finding. Postsurgical changes to the lower pole of the right kidney are present and result in adherence of the proximal right ureter to the lower pole. This creates a tortuous course to the ureter. Low-density masses are present in each kidney. These are probably cysts but not fully characterized o n noncontrast imaging. Pyelonephritis and other isodense masses cannot be excluded on stone protocol study.
[2019-03-27] MEDS ORDERED: ACETAMINOPHEN 325 MG TABLET PO PRN (21:03)
[2019-03-27] MEDS ORDERED: GLUCAGON 1 MG/VIAL IM PRN (21:03)
[2019-03-27] MEDS ORDERED: MORPHINE 4 MG/ML SYR IV PRN (21:03)
[2019-03-27] MEDS ORDERED: D50W 25 GM/50 ML SYRINGE IV PRN (21:03)
[2019-03-27] MEDS ORDERED: ONDANSETRON 4 MG/2 ML VIAL IV PRN (21:03)
[2019-03-27] MEDS ORDERED: TRAMADOL HCL 50 MG TAB PO PRN (22:11)
[2019-03-27] MEDS: FAMOTIDINE 20 MG/2 ML VIAL IV SCH (23:09)
[2019-03-27] MEDS: MAGNESIUM OXIDE 400 MG TAB PO SCH (23:09)
[2019-03-27] MEDS: NA CHLORIDE 0.9% 1,000 ML IV SCH (23:10)
[2019-03-27] MEDS: INSULIN -REGULAR HUMAN 50 UNIT/0.5 ML ML SQ SCH (23:10)
[2019-03-28 03:04] VITALS: BMI 40.1
[2019-03-28] MEDS: GABAPENTIN 100 MG CAP PO SCH ×3 (03:09→21:16)
[2019-03-28] MEDS: cloNIDine HCl 0.1 MG TAB PO SCH ×3 (03:09→21:16)
[2019-03-28] MEDS: DULOXETINE 30 MG CAP PO SCH ×4 (03:09→21:16)
[2019-03-28] MEDS: CEFTRIAXONE/SWI 1gm 1 GM/10 ML SYR IV SCH ×2 (05:50→16:58)
[2019-03-28] MEDS: NA CHLORIDE 0.9% 1,000 ML IV SCH ×3 (05:51→16:59)
[2019-03-28] MEDS ORDERED: CEFTRIAXONE 1 GM/NS 50 ML 1 GM/50 ML BAG IV SCH (06:00)
[2019-03-28 07:48] LABS: Absolute Lymphocytes (CBC) 0.6 K/uL (0.7-4.9); Basophils % 0.4 % (0-1.3); Hematocrit 40.2 % (39.6-49.0); Lymphocytes % 6.9 % (15.3-44.8); MPV 8.9 fL (7.6-11.3); RBC Red Blood Cell Count 4.67 M/uL (4.33-5.43)
[2019-03-28 08:01] LABS: Potassium 3.8 mmol/L (3.5-5.1)
[2019-03-28] MEDS: ROPINIROLE HCL 1 MG TAB PO SCH (08:48)
[2019-03-28] MEDS: FAMOTIDINE 20 MG/2 ML VIAL IV SCH ×2 (08:48→21:21)
[2019-03-28] MEDS: MAGNESIUM OXIDE 400 MG TAB PO SCH ×2 (08:48→21:18)
[2019-03-28] MEDS: INSULIN -REGULAR HUMAN 50 UNIT/0.5 ML ML SQ SCH ×4 (08:48→21:00)
[2019-03-28] MEDS ORDERED: ASPIRIN EC 81 MG TAB PO SCH (09:00)
--- NOTE | 2019-03-28 10:40 | EKG ---
Test Date: 2019-03-28 Test Time: 05:50:02 Research Test Engine Operator: RT MEASUREMENT RESULTS: Intervals: Rate: 89 CT: 186 QRSD: 106 QT: 368 QTc: 447 [place]: P: 66 CT: 186 QRS: 44 T: 86 INTERPRETIVE STATEMENTS: Normal sinus rhythm Nonspecific T wave abnormality Abnormal ECG Compared to ECG 03/27/2019 16:32:07 T-wave abnormality now present Sinus tachycardia no longer present Electronically Signed On 03-28-19 10:39:35 CDT by Manpreet Vazquez
--- NOTE | 2019-03-28 10:42 | EKG ---
Test Date: 2019-03-27 Test Time: 16:32:07 Transmission And Coordination Engineer: MACY MEASUREMENT RESULTS: Intervals: Rate: 103 WV: 180 QRSD: 104 QT: 348 QTc: 455 [place]: P: 64 WV: 180 QRS: 63 T: 45 INTERPRETIVE STATEMENTS: Sinus tachycardia Otherwise normal ECG Compared to ECG 01/05/2019 16:34:17 Sinus rhythm no longer present T-wave abnormality no longer present Electronically Signed On 03-28-19 10:41:44 CDT by Manpreet Vazquez
--- NOTE | 2019-03-28 10:55 | P.HP ---
Certification for Inpatient Patient admitted to: Inpatient With expected LOS: >2 Midnights Practitioner: I am a practitioner with admitting privileges, knowledge of patient current condition, hospital course, and medical plan of care. Services: Services provided to patient in accordance with Admission requirements found in Title 42 Section 412.3 of the Code of Federal Regulations Patient History Date of Service: 03/28/19 Reason for admission: WEAK LEGS, FELL A FEW TIMES IN LAST 3 DAYS History of Present Illness: MR. AVINA HAS MANY MEDICAL ISSUES,INCLUDING, DM, DIABETIC NEUROPATHY, DJD, OBESITY, SEVERE HTN, CKD FROM DM. COMES WITH A FEW FALLS. RECENTLY HIS DIURETIC HAS BEEN INCREASED. HE ALSO HALLUCINATES. HE SAYS HE HAS BEEN TALKING TO PEOPLE IN HIS HEAD AND ANSWERS THEM IF SOMEONE IS TALKING TO HIM IN PERSON. THIS IS HAPPENING FOR A WHILE BUT MORE LATELY. HE IS NOT WATCHING DIET AND NOT ABLE TO LOSE WEIGHT. Allergies droperidol [From Inapsine] Allergy (Verified 03/27/19 21:47) Itching Home Medications: Doxazosin Mesylate 4 mg PO DAILY 06/03/17 Linaclotide [Linzess] 290 mcg PO SEECOM 06/03/17 cloNIDine HCl [Clonidine HCl] 0.3 mg PO TID 06/03/17 Hydralazine HCl [Apresoline] 100 mg PO BID #180 tablet 06/05/17 traMADol HCL [Ultram*] 50 mg PO TID PRN #90 tab 06/05/17 Doxazosin [Cardura*] 4 mg PO BEDTIME 02/13/18 Gabapentin [Neurontin*] 100 mg PO TID 02/13/18 Insulin Aspart [Novolog] 15 unit SQ TID 02/13/18 Insulin Glargine,Hum.rec.anlog [Basaglar Kwikpen U-100] 70 units SQ BEDTIME Liraglutide [Victoza 2-Cecilio] 1.2 units SQ DAILY 02/13/18 Ropinirole HCl [Requip*] 0.5 tab PO TID 02/13/18 Aspirin 1 tab PO BID 03/27/19 Furosemide 1 tab PO BID 03/27/19 Nebivolol HCl [Bystolic] 20 mg PO DAILY 03/27/19 Venlafaxine HCl [Venlafaxine HCl ER] 1 tab PO DAILY 03/27/19 Testosterone Cypionate [Testone Cik] 1 ml IM SEECOM 03/28/19 - Past Medical/Surgical History Has patient received pneumonia vaccine in the past: Yes Diabetic: Yes -: DM -: HTN -: high cholesterol -: gout -: brain injury 2003 -: kidney cancer -: removed cancer from kidney -: tonsillectomy - Family History Father -: Heart disease, Hypertension Mother -: Lung disease - Social History Smoking Status: Never smoker Alcohol use: Yes CD- Drugs: No Caffeine use: Yes Place of Residence: Home Review of Systems 10-point ROS is otherwise unremarkable General: Weakness Cardiovascular: Edema Physical Examination - Vital Signs Temperature: 98.2 F Blood Pressure: 175/89 Pulse: 78 Respirations: 17 Pulse Ox (%): 97 - Physical Exam General: Alert, Mild distress, Obese HEENT: Atraumatic, PERRLA, Mucous membr. moist/pink, EOMI, Sclerae nonicteric Neck: Supple, 2+ carotid pulse no bruit, No LAD, Without JVD or thyroid abnormality Respiratory: Clear to auscultation bilaterally, Normal air movement Cardiovascular: Regular rate/rhythm, Normal S1 S2, Edema Gastrointestinal: Normal bowel sounds, No tenderness Musculoskeletal: No tenderness Integumentary: No rashes Neurological: Normal gait, Normal speech, Normal strength at 5/5 x4 extr, Normal tone, Normal affect Lymphatics: No axilla or inguinal lymphadenopathy - Studies Laboratory Data (last 24 hrs) 03/27/19 16:47: PT 13.4 H, INR 1.14 03/27/19 16:47: WBC 13.3 H, Hgb 13.9, Hct 42.2, Plt Count 161 03/27/19 16:47: Sodium 134 L, Potassium 3.7, BUN 30 H, Creatinine 2.01 H, Glucose 215 H, Magnesium 1.7 L, Total Bilirubin 1.1 H, AST 13 L, ALT 21, Alkaline Phosphatase 49, Lipase 67 L Assessment and Plan - Problems (Diagnosis) (1) Dehydration Current Visit: Yes Status: Acute Plan: IV FLUIDS HELPED. HIS CREATININE CAME DOWN. I HAVE STOPPED DIURETICS FOR NOW. HIS FLUID OVERLOAD IN LEGS ARE FROM LYMPHEDEMA FROM OBESITY AND NOT FROM REAL OVERLOAD OF FLUIDS. HE HAS NO CHF. HE HAS CKD. (2) Hallucination Current Visit: Yes Status: Chronic Plan: MORE LATELY. MRI BRAIN WITHOUT AND WITH CONTRAST IN AM. HE HAS BEEN TO TWO NEUROLOGISTS. WILL GET HIM OUTPATIENT NEUROLOGIST. (3) Diabetes mellitus, type II Onset Date: 06/04/17 Current Visit: No Status: Chronic Qualifiers: Diabetes mellitus long term acute care registered nurse insulin use: with assisted use Diabetes mellitus complication status: with neurologic complications Diabetes mellitus complication detail: with polyneuropathy Qualified Code(s): E11.42 - Type 2 diabetes mellitus with diabetic polyneuropathy; Z79.4 - technician terminal and repeater (current) use of insulin (4) Malignant hypertension Onset Date: 06/04/17 Current Visit: No Status: Chronic Plan: HE IS ON MANY MEDS. WILL TRY TO AVOID DIURETICS. (5) Neuropathy Current Visit: No Status: Chronic (6) Elevated bilirubin Current Visit: Yes Status: Chronic Plan: THIS CAN BE JUST FROM FATTY LIVER. ADVISE SONOGRAM IN AM. CT ABDOMEN NEGATIVE. (7) Hypomagnesemia Current Visit: Yes Status: Acute Plan: REPLACED AND FU. (8) Hypoalbuminemia Current Visit: Yes Status: Chronic Plan: DIABETIC NEPHROPATHY. HE HAS BEEN ADVISED TO EAT BETTER. - Advance Directives Does patient have a Living Will: Yes Does patient have a Durable POA for Healthcare: No
--- NOTE | 2019-03-28 11:31 | P.CNS ---
Date of Consult: 03/28/19 Reason for Consult: LIDIA on CKD Chief Complaint: WEAK LEGS, FELL A FEW TIMES IN LAST 3 DAYS History of Present Illness: A 68 Y/o man with PMHx of Dm with retinopathy, HTN , CKD with baseline Cr ~1.5, rt renal mass S/p partial resection, and depression and Chronic LE lymphedema on lasix pt presented with weakness pt was complaining of weakness started yesterday ,as per pt also had mild confusion in Er Cr 2.0, improved to 1.5 on IVF , Abd Ct no hydro currently no chest pain, palpitation, nausea or vomiting Allergies droperidol [From Inapsine] Allergy (Verified 03/27/19 21:47) Itching Home Medications: Doxazosin Mesylate 4 mg PO DAILY 06/03/17 Linaclotide [Linzess] 290 mcg PO SEECOM 06/03/17 cloNIDine HCl [Clonidine HCl] 0.3 mg PO TID 06/03/17 Hydralazine HCl [Apresoline] 100 mg PO BID #180 tablet 06/05/17 traMADol HCL [Ultram*] 50 mg PO TID PRN #90 tab 06/05/17 Doxazosin [Cardura*] 4 mg PO BEDTIME 02/13/18 Gabapentin [Neurontin*] 100 mg PO TID 02/13/18 Insulin Aspart [Novolog] 15 unit SQ TID 02/13/18 Insulin Glargine,Hum.rec.anlog [Basaglar Kwikpen U-100] 70 units SQ BEDTIME Liraglutide [Victoza 2-Cecilio] 1.2 units SQ DAILY 02/13/18 Ropinirole HCl [Requip*] 0.5 tab PO TID 02/13/18 Aspirin 1 tab PO BID 03/27/19 Furosemide 1 tab PO BID 03/27/19 Nebivolol HCl [Bystolic] 20 mg PO DAILY 03/27/19 Venlafaxine HCl [Venlafaxine HCl ER] 1 tab PO DAILY 03/27/19 Testosterone Cypionate [Testone Cik] 1 ml IM SEECOM 03/28/19 - Past Medical/Surgical History Diabetic: Yes -: DM -: HTN -: high cholesterol -: gout -: brain injury 2003 -: kidney cancer -: removed cancer from kidney -: tonsillectomy - Family History Father Medical History: Heart disease, Hypertension Mother Medical History: Lung disease - Social History Alcohol use: Yes CD- Drugs: No Caffeine use: Yes Place of Residence: Home Physical Examination Temp Pulse Resp BP Pulse Ox 98.2 F 78 17 175/89 H 97 03/28/19 11:01 03/28/19 11:01 03/28/19 11:01 03/28/19 11:01 03/28/19 11:01 General: In no apparent distress, Oriented x3, Obese HEENT: Atraumatic Neck: Supple, Without JVD or thyroid abnormality Respiratory: Clear to auscultation bilaterally, Normal air movement Cardiovascular: Regular rate/rhythm, Normal S1 S2, No gallops, No rubs, No murmurs, Edema Gastrointestinal: Soft and benign, No ascites Musculoskeletal: No clubbing, No swelling Integumentary: No rashes Laboratory Data (last 24 hrs) 03/27/19 16:47: PT 13.4 H, INR 1.14 03/27/19 16:47: WBC 13.3 H, Hgb 13.9, Hct 42.2, Plt Count 161 03/27/19 16:47: Sodium 134 L, Potassium 3.7, BUN 30 H, Creatinine 2.01 H, Glucose 215 H, Magnesium 1.7 L, Total Bilirubin 1.1 H, AST 13 L, ALT 21, Alkaline Phosphatase 49, Lipase 67 L - Problems (1) LIDIA (acute kidney injury) Current Visit: Yes Status: Acute (2) Dehydration Current Visit: Yes Status: Acute (3) Hallucination Current Visit: Yes Status: Chronic (4) Diabetes mellitus, type II Onset Date: 06/04/17 Current Visit: No Status: Chronic Qualifiers: Diabetes mellitus emt intermediate insulin use: with fci use Diabetes mellitus complication status: with neurologic complications Diabetes mellitus complication detail: with polyneuropathy Qualified Code(s): E11.42 - Type 2 diabetes mellitus with diabetic polyneuropathy; Z79.4 - moth exterminator (current) use of insulin Conclusions/Impression: LIDIA on CKD due to overdiuresis Cr down to baseline Abd Ct no hydro will order UA and UPC will reduce IVF to 70ml/hr renal dose meds HTN uncontrolled will add coreg DM as per primary Hx of renal mass S/p resection now Abd ct with multiple cyst? MRI as an oP confusion possibly due to med side effect resolved now
[2019-03-28] MEDS: NEBIVOLOL HCL 20 MG TABLET PO SCH (11:33)
[2019-03-28] MEDS: HYDRALAZINE HCL 25 MG TABLET PO SCH ×2 (11:33→21:23)
[2019-03-28] MEDS: INSULIN LISPRO 100 UNIT/1 ML SQ SCH ×2 (11:34→20:21)
--- NOTE | 2019-03-28 11:43 | RAD REPORT ---
EXAM DESCRIPTION: RAD - Chest Single View - 03/28/2019 8:53 am CLINICAL HISTORY: Chest Pain Chest pain. COMPARISON: Chest Single View dated 03/27/2019; Chest Pa And Lat (2 Views) dated 06/03/2017; Abdomen 1 View (KUB) dated 04/17/2017; Chest Single View dated 07/03/2016 FINDINGS: Portable technique limits examination quality. The lungs are grossly clear. The heart is upper limit of normal in size. No displaced fractures. IMPRESSION: No acute intrathoracic process suspected.
[2019-03-28] MEDS ORDERED: INSULIN LISPRO 100 UNIT/1 ML SQ SCH (12:00)
[2019-03-28] MEDS ORDERED: INSULIN ASPART 15 UNIT SQ SCH (14:00)
[2019-03-28 14:51] LABS: Urine Protein/Creatinine Ratio 1.28 ratio (<0.15)
[2019-03-28 15:03] LABS: Urine Appearance CLEAR; Urine Bilirubin NEGATIVE (NEG); Urine Blood NEGATIVE (NEG); Urine Color YELLOW; Urine Glucose 2+ (NEG); Urine Protein 2+ (NEG)
[2019-03-28 15:18] LABS: Urine Bacteria <20 /HPF (NONE SEEN); Urine Culture Reflex Order NOT NEEDED; Urine RBC <5 /HPF (NONE SEEN)
[2019-03-28] MEDS ORDERED: DOXAZOSIN 4 MG TAB PO SCH (21:00)
[2019-03-28] MEDS ORDERED: INSULIN GLARGINE HUM REC ANLOG 70 UNIT SQ SCH (21:00)
[2019-03-28] MEDS ORDERED: INSULIN GLARGINE 100 UNITS/ML SQ SCH (21:00)
[2019-03-28] MEDS ORDERED: HOME MED 1 EA UNK (Hydralazine Hcl [Apresoline] 100 MG) PO SCH (21:00)
[2019-03-28] MEDS: ASPIRIN 81 MG CHEWABLE TABLET PO SCH (21:14)
[2019-03-28] MEDS: CARVEDILOL 3.125 MG TAB PO SCH (21:14)
--- NOTE | 2019-03-28 22:03 | RAD REPORT ---
EXAM DESCRIPTION: US - Abdomen Exam Complete - 03/28/2019 9:00 pm CLINICAL HISTORY: Abdominal pain. ELEVATED BILIRUBIN COMPARISON: Abdomen Pelvis Scan dated 06/04/2017; Stone Protocol dated 03/27/2019; Vent Perfusion VQ S can dated 06/04/2017 FINDINGS: Mildly heterogenous liver echotexture noted. No focal liver lesions or intrahepatic biliar y dilatation is seen. The gallbladder appears mildly contracted with a thickened wall and mild intramural edema. Common bi le duct is normal in caliber measuring 3 mm. Both kidneys are normal in size, shape and echotexture. No hydronephrosis. Benign small bilateral sonya al cysts noted. The spleen is normal in size measuring 14 cm. The pancreas and aorta are obscured by bowel gas. The visualized aspects of the IVC are grossly normal. IMPRESSION: Partially contracted gallbladder without stones visible. The gallbladder wall does appea r thickened and mildly edematous. This may be related to hepatic inflammation, chronic cholecystitis or hypoalbuminemia.
[2019-03-29] MEDS: CARVEDILOL 3.125 MG TAB PO SCH (05:31)
[2019-03-29] MEDS: CEFTRIAXONE/SWI 1gm 1 GM/10 ML SYR IV SCH (05:32)
[2019-03-29] MEDS: INSULIN LISPRO 100 UNIT/1 ML SQ SCH ×3 (07:30→17:29)
[2019-03-29] MEDS: INSULIN -REGULAR HUMAN 50 UNIT/0.5 ML ML SQ SCH ×3 (07:30→16:30)
[2019-03-29 08:22] LABS: Absolute Lymphocytes (CBC) 0.6 K/uL (0.7-4.9); Basophils % 0.5 % (0-1.3); Hematocrit 40.8 % (39.6-49.0); Lymphocytes % 9.4 % (15.3-44.8); MPV 8.8 fL (7.6-11.3); RBC Red Blood Cell Count 4.68 M/uL (4.33-5.43)
[2019-03-29] MEDS ORDERED: HOME MED 1 EA UNK (Venlafaxine Hcl [Venlafaxine Hcl Er] 1 TAB) PO SCH (09:00)
[2019-03-29] MEDS: GABAPENTIN 100 MG CAP PO SCH ×2 (09:00→13:22)
[2019-03-29] MEDS: HYDRALAZINE HCL 25 MG TABLET PO SCH ×2 (09:00→13:21)
[2019-03-29] MEDS: FAMOTIDINE 20 MG/2 ML VIAL IV SCH (09:00)
[2019-03-29] MEDS: DULOXETINE 30 MG CAP PO SCH ×2 (09:00→13:23)
[2019-03-29] MEDS: NEBIVOLOL HCL 20 MG TABLET PO SCH (09:00)
[2019-03-29] MEDS: cloNIDine HCl 0.1 MG TAB PO SCH ×2 (09:00→13:24)
[2019-03-29] MEDS: ASPIRIN 81 MG CHEWABLE TABLET PO SCH ×2 (09:00→13:23)
[2019-03-29] MEDS: ROPINIROLE HCL 1 MG TAB PO SCH ×2 (09:00→13:22)
[2019-03-29] MEDS ORDERED: NEBIVOLOL HCL 20 MG PO SCH (09:00)
[2019-03-29] MEDS: MAGNESIUM OXIDE 400 MG TAB PO SCH ×2 (09:00→13:23)
[2019-03-29 09:12] VITALS: O2SAT 98
--- NOTE | 2019-03-29 09:41 | RAD REPORT ---
EXAM DESCRIPTION: MRI - Brain W/Wo Cont - 03/29/2019 9:06 am CLINICAL HISTORY: ALTERED MENTAL STATUS Headache, drowsiness, alteration of awareness COMPARISON: Head Brain Wo Cont dated 03/27/2019 TECHNIQUE: Multi-sequence, multiplanar MR imaging of the brain was performed with contrast. FINDINGS: No intracranial hemorrhage, hydrocephalus, or extra-axial fluid collection.Mild brain atro phy is seen with mild to moderate chronic microvascular ischemic changes suspected in the periventric ular and deep white matter. No edema or shift of midline structures. No intracranial mass. DWI is neg ative for acute CVA. The midline structures are normally formed. Mastoid air cells and paranasal sinuses are clear. Post-contrast images show no abnormal enhancement to suggest tumor or infection. IMPRESSION: Negative for acute CVA or other acute intracranial process.
[2019-03-29] MEDS: METOPROLOL TARTRATE 5 MG/5 ML INJ IV SCH ×2 (10:52→17:30)
--- NOTE | 2019-03-29 13:33 | RAD REPORT ---
EXAM DESCRIPTION: NM - Hepatobiliary System W/ Ph - 03/29/2019 1:25 pm CLINICAL HISTORY: contracted gallbladder Abdominal pain COMPARISON: Vent Perfusion VQ Scan dated 06/04/2017 TECHNIQUE: The patient was administered 6.0 mCi Tc99m Choletec. Imaging of the right upper quadrant was performed initially for up to 60 minutes. Gallbladder ejection fraction determination was then performed utilizing synthetic 2.6 mgm CCK over a slow 30 minute infusion. FINDINGS: Normal hepatic uptake and excretion with appropriate clearance of background blood pool ac tivity. Normal visualization of biliary and small bowel activity. Gallbladder visualizes within normal time limits. The calculated ejection fraction is 67% (normal gre ater than 35%). Subjective pain reported by the patient: Pre-procedure - none During or subsequent to synthetic CCK infusion - none IMPRESSION: Patient cystic duct and patent sphincter of Oddi. No delay in visualization of the gallb ladder, biliary tree, or duodenum. Ejection fraction is 67% (normal greater than 35%). Subjective patient pain assessment as detailed above.
[2019-03-29] MEDS: NA CHLORIDE 0.9% 1,000 ML IV SCH (15:36)
[2019-03-29 16:15] VITALS: BP 136/83; TEMP 98.2
--- NOTE | 2019-03-29 20:56 | P.DS ---
Admission Date: 03/27/19 Discharge Date: 03/29/19 Disposition: ROUTINE DISCHARGE Discharge Condition: FAIR Reason for Admission: WEAK LEGS, FELL A FEW TIMES IN LAST 3 DAYS - Problems (1) Dehydration Status: Acute (2) Hallucination Status: Chronic (3) Diabetes mellitus, type II Onset Date: 06/04/17 Status: Chronic Qualifiers: Diabetes mellitus terminal computer operator insulin use: with terminal computer operator use Diabetes mellitus complication status: with neurologic complications Diabetes mellitus complication detail: with polyneuropathy Qualified Code(s): E11.42 - Type 2 diabetes mellitus with diabetic polyneuropathy; Z79.4 - rodent exterminator (current) use of insulin (4) Malignant hypertension Onset Date: 06/04/17 Status: Chronic (5) Neuropathy Status: Chronic (6) Elevated bilirubin Status: Chronic (7) Hypomagnesemia Status: Acute (8) Hypoalbuminemia Status: Chronic Brief History of Present Illness: MR. AVINA HAS MANY MEDICAL ISSUES,INCLUDING, DM, DIABETIC NEUROPATHY, DJD, OBESITY, SEVERE HTN, CKD FROM DM. COMES WITH A FEW FALLS. RECENTLY HIS DIURETIC HAS BEEN INCREASED. HE ALSO HALLUCINATES. HE SAYS HE HAS BEEN TALKING TO PEOPLE IN HIS HEAD AND ANSWERS THEM IF SOMEONE IS TALKING TO HIM IN PERSON. THIS IS HAPPENING FOR A WHILE BUT MORE LATELY. HE IS NOT WATCHING DIET AND NOT ABLE TO LOSE WEIGHT. MR. AVINA IS STABL. HIS MRI BRAIN IS NEGATIVE, HIDA SCAN IS NEGATIVE. HE HAS SOMONE TALKING TO HIM IN HIS HEAD. HE HALLUICINATES BUT HAS DONE FOR A WHILE. I WILL STOP TRAMADOL. HE MAY HAVE SE OF HIS BRAIN MEDS. HE NEEDS ANTIDEPRSSENT BUT TRAMADOL MAY ADD TO SEROTONIN SYNDROME. HE IS SABLE FOR DC HE WILL GO TO [facility] FOR [facility]OUND [facility]ERAPY. HE MAY BENEFIT FROM NEW NIGHTLY COMPRESSION THERAPY HIS DIET HAS BEEN POOR AND I HAVE ADVISED CHANGES FOR LONG TIME. HIS DEHYDRATION HAS IMPRVOED. I STOPPED DIURETIC FOR 3 DAYS AND HE WILL TAKE LESSER DOSE NOW AND ONCE WE CONTROL HIS EDEMA WILL STOP LASIX. Vital Signs/Physical Exam: Temp Pulse Resp BP Pulse Ox 98.2 F 80 17 136/83 95 03/29/19 16:00 03/29/19 17:30 03/29/19 16:00 03/29/19 17:30 03/29/19 16:00 Laboratory Data at Discharge: WBC 5.9 K/uL (4.3-10.9) D 03/29/19 08:05 Hgb 13.3 g/dL (13.6-17.9) L 03/29/19 08:05 Hct 40.8 % (39.6-49.0) 03/29/19 08:05 Plt Count 143 K/uL (152-406) L 03/29/19 08:05 PT 13.4 SECONDS (9.5-12.5) H 03/27/19 16:47 INR 1.14 03/27/19 16:47 Sodium 139 mmol/L (136-145) 03/29/19 08:05 Potassium 4.0 mmol/L (3.5-5.1) 03/29/19 08:05 BUN 24 mg/dL (7-18) H 03/29/19 08:05 Creatinine 1.47 mg/dL (0.55-1.3) H 03/29/19 08:05 Glucose 158 mg/dL (74-106) H 03/29/19 08:05 Magnesium 1.7 mg/dL (1.8-2.4) L 03/27/19 16:47 Total Bilirubin 1.1 mg/dL (0.2-1.0) H 03/27/19 16:47 AST 13 U/L (15-37) L 03/27/19 16:47 ALT 21 U/L (12-78) 03/27/19 16:47 Alkaline Phosphatase 49 U/L (45-117) 03/27/19 16:47 Troponin I < 0.02 ng/mL (0.0-0.045) 03/28/19 02:21 Lipase 67 U/L (73-393) L 03/27/19 16:47 Home Medications: Doxazosin Mesylate 4 mg PO DAILY 06/03/17 Linaclotide [Linzess] 290 mcg PO SEECOM 06/03/17 cloNIDine HCl [Clonidine HCl] 0.3 mg PO TID 06/03/17 Hydralazine HCl [Apresoline] 100 mg PO BID #180 tablet 06/05/17 Doxazosin [Cardura*] 4 mg PO BEDTIME 02/13/18 Gabapentin [Neurontin*] 100 mg PO TID 02/13/18 Insulin Aspart [Novolog] 15 unit SQ TID 02/13/18 Insulin Glargine,Hum.rec.anlog [Basaglar Kwikpen U-100] 70 units SQ BEDTIME Liraglutide [Victoza 2-Cecilio] 1.2 units SQ DAILY 02/13/18 Ropinirole HCl [Requip*] 0.5 tab PO TID 02/13/18 Aspirin 1 tab PO BID 03/27/19 Nebivolol HCl [Bystolic] 20 mg PO DAILY 03/27/19 Venlafaxine HCl [Venlafaxine HCl ER] 1 tab PO DAILY 03/27/19 Testosterone Cypionate [Testone Cik] 1 ml IM SEECOM 03/28/19 Patient Discharge Instructions: START FUROSEMIDE 40 MG DAILY NOT TWICE DAILY. Diet: ADA Activity: Ad ilir Followup: Irene Lee MD [ACTIVE - CAN ADMIT] - Ryan Tirado MD [Primary Care Provider] -
--- NOTE | 2019-03-30 04:06 | PN ---
Date of Progress Note: 03/29/2019 Chief Complaint: Acute on chronic kidney injury. History Of Present Illness: Patient developed nonoliguric acute kidney injury. Baseline creatinine was 1.5. Patient was found to have right renal mass and previously he underwent partial resection. He has history of chronic lymphedema and he remains on Lasix. Patient presented with generalized wea kness, was complaining of weakness and mild confusion. With IV fluids, serum creatinine improved fro m 2.[address] scan of the abdomen did not show hydronephrosis. Review of Systems: Denies chest pain, palpitation. Physical Examination: Lungs: Clear to auscultation bilaterally. Heart: S1, S2. Abdomen: Soft, benign. Extremities: Slight edema. Impression And Plan: Acute kidney injury, in recovery with patient had prerenal azotemia and respond ed on IV fluids. There is no evidence of obstructive uropathy. Creatinine level improved to baselin e. Monitor electrolytes and adjust treatment with blood pressure medication accordingly. Today, blo od work showed sodium 149, potassium 4.0, chloride 103, CO2 of 30. BUN 24, creatinine 1.47, glucose 158, and calcium 8.6. Patient will follow up with Nephrology as outpatient. [facility] Voice ID: [id number] Report ID: [id number]
== END 2019-03-29 18:46 | disposition home or self-care (01) | DRG 641 ==
LOC: ER 16:22 → ERHOLD 18:32 → 2ND 20:52
PROVIDERS: ADMIT Internal Medicine; ATTEND Internal Medicine
DX: E86.0 Dehydration (principal); R44.3 Hallucinations, unspecified; Z68.41 Body mass index [BMI] 40.0-44.9, adult; N17.9 Acute kidney failure, unspecified; E11.42 Type 2 diabetes mellitus with diabetic polyneuropathy; Z79.4 Long term (current) use of insulin; E83.42 Hypomagnesemia; E88.09 Other disorders of plasma-protein metabolism, not elsewhere classified; E66.9 Obesity, unspecified; I12.9 Hypertensive chronic kidney disease with stage 1 through stage 4 chronic kidney disease, or unspecified chronic kidney disease; E11.22 Type 2 diabetes mellitus with diabetic chronic kidney disease; N18.9 Chronic kidney disease, unspecified
CPT/HCPCS: 36415; 70450; 70553; 71045; 74176; 76377; 76700; 78227; 80048; 80076; 81001; 82570; 82962; 83690; 83735; 83880; 84156; 84484; 85025; 85610; 87040; 93005; 96361; 96365; 99285; A9537; A9577; J0696; J2805; J3475; J7030

== ENCOUNTER 2019-08-02 01:29 | Emergency (ER) | payer OTHER ==
--- OUTSIDE RECORDS SUMMARY | 2019-08-02 01:31 | XMS REPORT ---
:1950 Author Organization [facility] Address [address] [place] [address] Dr. Cody [address] [place] [address] Care Team Providers Name Role Phone Unavailable Unavailable Unavailable Problems This patient has no known problems. Allergies, Adverse Reactions, Alerts This patient has no known allergies or adverse reactions. Medications This patient has no known medications.
--- OUTSIDE RECORDS SUMMARY | 2019-08-02 01:33 | XMS REPORT | Summary of Care ---
:1950 Author Organization [facility] Address [address] [place] [address] Care Team Providers Name Role Phone Ryan Tirado Primary Care Provider Reason for Visit Reason Comments Follow-up Primary osteoarthritis of left knee - 3rd orthovic injection (Routine) Status Reason Specialty Diagnoses / Referred By Referred To Procedures Contact Contact Authorized PA-PHYSICIAN Diagnoses Unilateral primary osteoarthritis, left knee 1st Orthovisc Injection Left Knee Maxwell Boateng Brett HEALTH EDUCATOR / Procedures [place] ARTHROCENTESIS ASPIR&/INJ MAJOR JT/BURSA W/O US [place] ORTHOVISC INJ PER DOSE FOLLOW-UP VISIT MD José S, PAC Orthopedic [address] [place], [place] [address] [address] [place], [place] Phone: [phone] Phone: Encounter Details Date Type Department Care Team Description 03/31/2019 Office Visit [facility] Maxwell Boateng MD [address] [place] [address] Primary osteoarthritis Orthopaedic Surgery- Brendan Malcolm, PAC [address] [place] [address] of left knee (Primary [place] Dx) [address] [place] [address] Allergies Active Allergy Reactions Severity Noted Date Comments Droperidol Anxiety 05/16/2015 Feels like crawling in his skin Feels like crawling in his skin documented as of this encounter (statuses as of 04/01/2019) Medications Medication Sig Dispensed Refills Start Date [...] Medication sodium hyaluronate 30 mg Intra-articu ONCE 03/31/2019 03/31/2019 Ended (viscosup) (ORTHOVISC) injection 30 mg documented as of this encounter (statuses as of 04/01/2019) Active Problems Not on filedocumented as of this encounter (statuses as of 04/01/2019) Social History Tobacco Use Types Packs/Day Years [...] Sign Reading Time Taken Comments Blood Pressure 169/84 03/31/2019 1:56 PM CDT Pulse 77 03/31/2019 1:56 PM CDT Temperature - - Respiratory Rate 19 03/31/2019 1:56 PM CDT Oxygen Saturation 98% 03/31/2019 1:56 PM CDT Inhaled Oxygen Concentration - - Weight 124.7 kg (275 lb) 03/31/2019 1:56 PM CDT Height - - Body Mass Index 39.46 03/23/2019 3:12 PM CDT documented in this encounter Progress Notes Brendan Malcolm, PAC - 03/31/2019 2:00 PM CDT Cc: Chief Complaint Patient presents with Follow-up Primary osteoarthritis of left knee - 3rd orthovic injection Guanakito Guzman is a 68 year old [...] mg tablet ONE TOUCH DELICA 33 gauge Mis ONETOUCH ULTRA TEST strip pramipexole (MIRAPEX) 0.5 [...] file Gets together: Not on file Attends gnosticism service: Not on file Active member of [...] Father Cancer Maternal Grandmother Review of Systems Vital Signs BP (!) 169/84 (BP Location: Left arm, Patient Position: Sitting, BP CUFF SIZE: Adult Large) | Pulse77 | Resp 19 | Wt 124.7 kg (275 lb) | SpO2 98% | BMI 39.46 kg/m Physical Exam Assessment/Plan 1. Primary osteoarthritis of left knee Here for third of 3 Orthovisc injections in the left knee The knee was [...] Rate Site sodium hyaluronate Given by Provider 03/31/2019 1:56 PM 30 mg Left Knee (viscosup) (ORTHOVISC) CDT injection 30 mg 30 mg, Intra-articular, ONCE, 1 dose, Fri03/31/19 at 1500, Routine documented in this encounter Insurance Payer Benefit Plan / Subscriber ID Effective Dates Phone Address Type Group HUMANA - HU[employer]NA [id number] 2017-Presen Medicare Adv MANAGED MEDICARE t FFS MEDICARE documented as of this encounter"
--- OUTSIDE RECORDS SUMMARY | 2019-08-02 01:33 | XMS REPORT | Summary of Care ---
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] file Gets together: Not on file Attends protestant service: Not on file Active member of [...] Phone Address Type Group HUMANA - HUMANA [id number] 2017-Presen Medicare Adv MANAGED MEDICARE t FFS MEDICARE documented as of this encounter"
[2019-08-02] MEDS ORDERED: METOPROLOL TARTRATE 5 MG/5 ML INJ IV ONE (02:00)
[2019-08-02] MEDS ORDERED: NITROGLYCERIN 0.4 MG/TAB SL ONE (02:00)
[2019-08-02 02:57] LABS: Absolute Lymphocytes (CBC) 0.8 K/uL (0.7-4.9); Basophils % 1.3 % (0-1.3); Hematocrit 42.2 % (39.6-49.0); Lymphocytes % 15.3 % (15.3-44.8); MPV 8.5 fL (7.6-11.3); RBC Red Blood Cell Count 4.85 M/uL (4.33-5.43)
[2019-08-02 03:00] LABS: Protime INR 0.93
[2019-08-02 03:10] LABS: Albumin 3.1 g/dL (3.4-5.0); Bilirubin Direct 0.1 mg/dL (0-0.2); Bilirubin Total 0.5 mg/dL (0.2-1.0); Magnesium 1.6 mg/dL (1.8-2.4); Potassium 3.7 mmol/L (3.5-5.1); Protein, Total 6.5 g/dL (6.4-8.2); Troponin (Emerg Dept Use Only) 0.03 ng/mL (0.0-0.045)
[2019-08-02] MEDS ORDERED: MAGNESIUM SULFATE 1 gm IVPB 1 GM/100 ML BAG IV ONE (03:23)
[2019-08-02] MEDS ORDERED: ACETAMINOPHEN 325 MG TABLET ONE (04:26)
--- NOTE | 2019-08-02 05:07 | ER ---
Nurse's Notes [facility] Name: Guanakito Guzman Age: 68 yrs Sex: Male : 1950 Arrival Date: 08/02/2019 Time: 01:31 Bed 17 Private MD: Diagnosis: Chest pain. Uncontrolled hypertension Presentation: 08/02 01:46 Presenting complaint: Patient states: Reports she has been having chest pain for the ea past three days, reports chest pain and SOB when he walks. Pt reports pain does not radiate states " I have had cardiac issues since I was 21 years old". Transition of care: patient was not received from another setting of care. Onset of symptoms was August 02, 2019. Risk Assessment: Do you want to hurt yourself or someone else? Patient reports no desire to harm self or others. Initial Sepsis Screen: Does the patient meet any 2 criteria? HR > 90 bpm. Does the patient have a suspected source of infection? No. Patient's initial sepsis screen is negative. Care prior to arrival: Medication(s) given: reports pt took all night time meds and clonidine prior to arrival. 01:46 Method Of Arrival: Ambulatory ea 01:46 Acuity: SHAILA 3 ea Triage Assessment: 01:50 General: Appears uncomfortable, Behavior is appropriate for age. Pain: Complains of ea pain in chest. Cardiovascular: Patient's skin is warm and dry. Respiratory: Airway is patent Respiratory effort is even, unlabored, Respiratory pattern is regular, symmetrical. Derm: Skin is pink, warm \\T\\ dry. Historical: - Allergies: 01:56 Inapsine; ea - Home Meds: 01:56 aspirin 81 mg Oral chew 2 tabs once daily [Active]; basaglar insulin [Active]; ea clonidine HCl 0.3 mg Oral tab [Active]; doxazosin 4 mg Oral tab 1 tab once daily [Active]; Novolog 100 unit/mL Sub-Q soln [Active]; Linzess 290 mcg Oral cap 1 cap once daily [Active]; ropinirole 1 mg Oral tab 0.5 tab 3 times per day [Active]; venlafaxine 150 mg Oral cp24 1 cap once daily [Active]; Victoza 2-Cecilio 0.6 mg/0.1 mL (18 mg/3 mL) subcutaneous pnij 0.2 mL once daily [Active]; furosemide 40 mg Oral tab 1 tab 2 times per day [Active]; - PMHx: 01:56 kidney cancer; Hypertension; Diabetes - IDDM; ea - Immunization history:: Adult Immunizations up to date. - Social history:: Smoking status: unknown. - Ebola Screening: : No symptoms or risks identified at this time. Screenin:45 Abuse screen: Denies threats or abuse. Nutritional screening: No deficits noted. ea Tuberculosis screening: No symptoms or risk factors identified. Fall Risk IV access (20 points). Assessment: 01:49 General: Appears in no apparent distress. Behavior is calm, cooperative, appropriate wh for age. Pain: Complains of pain in chest Pain does not radiate. Pain currently is 3 out of 10 on a pain scale. Quality of pain is described as pressure, Pain began 2-3 days ago. Neuro: Level of Consciousness is awake, alert, obeys commands, Oriented to person, place, time, situation, Appropriate for age. Cardiovascular: Reports palpitations, shortness of breath, Heart tones S1 S2 Capillary refill < 3 seconds Rhythm is sinus tachycardia. Respiratory: Airway is patent Respiratory effort is even, unlabored, Respiratory pattern is regular, symmetrical, Breath sounds are clear bilaterally. GI: Abdomen is flat, non-distended. : No signs and/or symptoms were reported regarding the genitourinary system. EENT: No signs and/or symptoms were reported regarding the EENT system. Derm: Skin is intact, is healthy with good turgor, Skin is pink, warm \\T\\ dry. normal. Musculoskeletal: Circulation, motion, and sensation intact. 02:40 Reassessment: Patient appears in no apparent distress at this time. No changes from previously documented assessment. Patient and/or family updated on plan of care and expected duration. Pain level reassessed. Patient is alert, oriented x 3, equal unlabored respirations, skin warm/dry/pink. 04:10 Reassessment: Patient appears in no apparent distress at this time. No changes from previously documented assessment. Patient and/or family updated on plan of care and expected duration. Pain level reassessed. Patient is alert, oriented x 3, equal unlabored respirations, skin warm/dry/pink. 05:23 Reassessment: Patient appears in no apparent distress at this time. No changes from previously documented assessment. Patient and/or family updated on plan of care and expected duration. Pain level reassessed. Patient is alert, oriented x 3, equal unlabored respirations, skin warm/dry/pink. Patient states feeling better. Patient states symptoms have improved. Vital Signs: 01:43 BP 212 / 112; Pulse 106; Resp 19; Temp 98.1; Pulse Ox 100% ; Weight 127.01 kg; Height 5 ea ft. 10 in. (177.80 cm); 02:41 BP 148 / 88; Pulse 85; Resp 18; Pulse Ox 99% on R/A; wh 03:10 BP 131 / 79; Pulse 80; Resp 18; Pulse Ox 99% on R/A; ea 04:00 BP 169 / 97; Pulse 74; Resp 18; Pulse Ox 99% ; wh 05:00 BP 161 / 85; Pulse 76; Resp 18; Pulse Ox 98% on R/A; wh 01:43 Body Mass Index 40.18 (127.01 kg, 177.80 cm) ea ED Course: 01:31 Patient arrived in ED. ds1 01:32 Adalid Griffith MD is Attending Physician. pkl 01:44 Carlos Segundo is Primary Nurse. wh 01:46 Patient has correct armband on for positive identification. Placed in gown. Bed in low ea position. Call light in reach. Side rails up X 1. environmental monitoring specialist on. Pulse ox on. NIBP on. 01:46 Arm band placed on right wrist. Patient placed in an exam room, on a stretcher, on ea pulse oximetry. 01:46 EKG completed in triage. Results shown to MD. ea 01:49 Triage completed. ea 01:50 Patient maintains SpO2 saturation greater than 95% on room air. ea 02:37 Inserted saline lock: 22 gauge in right forearm, using aseptic technique. Blood mt collected. 02:39 XRAY Chest (1 view) In Process Unspecified. EDMS 04:01 CT Chest For PE Angio In Process Unspecified. EDMS 05:23 No provider procedures requiring assistance completed. IV discontinued, intact, wh bleeding controlled, No redness/swelling at site. Administered Medications: 01:58 Drug: Nitroglycerin 0.4 mg Route: Sublingual; wh 02:40 Follow up: Response: No adverse reaction; Blood pressure is lowered 03:20 Drug: Magnesium Sulfate 1 grams Route: IVPB; Infused Over: 1 hrs; Site: right forearm; 05:25 Follow up: Response: No adverse reaction; IV Status: Completed infusion Outcome: 05:05 Discharge ordered by . tomi 05:23 Discharged to home ambulatory, with family. 05:23 Condition: stable 05:23 Discharge instructions given to patient, family, Instructed on discharge instructions, follow up and referral plans. POC HTN Demonstrated understanding of instructions, follow-up care, POC 05:25 Patient left the ED. Signatures: Dispatcher [employer] EDAdalid Lambert MD MD pkl Sanford, Demi dsSoraida Kuhn mt, Elena RN RN Carlos Rolon
--- NOTE | 2019-08-02 05:10 | EDPHYS ---
Physician Documentation [facility] Name: Guanakito Guzman Age: 68 yrs Sex: Male : 1950 Arrival Date: 08/02/2019 Time: 01:31 Bed 17 Private MD: ED Physician Adalid Griffith HPI: 08/02 01:57 This 68 yrs old Male presents to ER via Ambulatory with complaints of Chest pkl Pain. 01:57 The patient or guardian reports chest pain that is located primarily in the substernal pkl area. Onset: 3 day(s) ago. The pain does not radiate. Associated signs and symptoms: Pertinent positives: shortness of breath. The chest pain is described as dull. Historical: - Allergies: 01:56 Inapsine; ea - Home Meds: 01:56 aspirin 81 mg Oral chew 2 tabs once daily [Active]; basaglar insulin [Active]; ea clonidine HCl 0.3 mg Oral tab [Active]; doxazosin 4 mg Oral tab 1 tab once daily [Active]; Novolog 100 unit/mL Sub-Q soln [Active]; Linzess 290 mcg Oral cap 1 cap once daily [Active]; ropinirole 1 mg Oral tab 0.5 tab 3 times per day [Active]; venlafaxine 150 mg Oral cp24 1 cap once daily [Active]; Victoza 2-Cecilio 0.6 mg/0.1 mL (18 mg/3 mL) subcutaneous pnij 0.2 mL once daily [Active]; furosemide 40 mg Oral tab 1 tab 2 times per day [Active]; - PMHx: 01:56 kidney cancer; Hypertension; Diabetes - IDDM; ea - Immunization history:: Adult Immunizations up to date. - Social history:: Smoking status: unknown. - Ebola Screening: : No symptoms or risks identified at this time. ROS: 01:57 Eyes: Negative for injury, pain, redness, and discharge, ENT: Negative for injury, pkl pain, and discharge, Neck: Negative for injury, pain, and swelling. 01:57 Cardiovascular: Positive for chest pain. 01:57 Respiratory: Positive for shortness of breath. 01:57 Abdomen/GI: Negative for abdominal pain, nausea, vomiting, and diarrhea. 01:57 Back: Negative for acute changes. 01:57 : Negative for urinary symptoms. 01:57 MS/extremity: Negative for acute changes. :57 Skin: Negative for rash. :57 Neuro: Negative for altered mental status. Exam: :57 Head/Face: Normocephalic, atraumatic. Eyes: Pupils equal round and reactive to light, pkl extra-ocular motions intact. Lids and lashes normal. Conjunctiva and sclera are non-icteric and not injected. Cornea within normal limits. Periorbital areas with no swelling, redness, or edema. ENT: Nares patent. No nasal discharge, no septal abnormalities noted. Tympanic membranes are normal and external auditory canals are clear. Oropharynx with no redness, swelling, or masses, exudates, or evidence of obstruction, uvula midline. Mucous membranes moist. Neck: Trachea midline, no thyromegaly or masses palpated, and no cervical lymphadenopathy. Supple, full range of motion without nuchal rigidity, or vertebral point tenderness. No Meningismus. Chest/axilla: Normal chest wall appearance and motion. Nontender with no deformity. No lesions are appreciated. Cardiovascular: Regular rate and rhythm with a normal S1 and S2. No gallops, murmurs, or rubs. Normal PMI, no JVD. No pulse deficits. Respiratory: Lungs have equal breath sounds bilaterally, clear to auscultation and percussion. No rales, rhonchi or wheezes noted. No increased work of breathing, no retractions or nasal flaring. Abdomen/GI: Soft, non-tender, with normal bowel sounds. No distension or tympany. No guarding or rebound. No evidence of tenderness throughout. Back: No spinal tenderness. No costovertebral tenderness. Full range of motion. Skin: Warm, dry with normal turgor. Normal color with no rashes, no lesions, and no evidence of cellulitis. MS/ Extremity: Pulses equal, no cyanosis. Neurovascular intact. Full, normal range of motion. Neuro: Awake and alert, GCS 15, oriented to person, place, time, and situation. Cranial nerves II-XII grossly intact. Motor strength 5/5 in all extremities. Sensory grossly intact. Cerebellar exam normal. Normal gait. Vital Signs: 01:43 BP 212 / 112; Pulse 106; Resp 19; Temp 98.1; Pulse Ox 100% ; Weight 127.01 kg; Height 5 ea ft. 10 in. (177.80 cm); 02:41 BP 148 / 88; Pulse 85; Resp 18; Pulse Ox 99% on R/A; wh 03:10 BP 131 / 79; Pulse 80; Resp 18; Pulse Ox 99% on R/A; ea 04:00 BP 169 / 97; Pulse 74; Resp 18; Pulse Ox 99% ; wh 05:00 BP 161 / 85; Pulse 76; Resp 18; Pulse Ox 98% on R/A; wh 01:43 Body Mass Index 40.18 (127.01 kg, 177.80 cm) ea MDM: 01:32 Patient medically screened. pkl 05:03 Data reviewed: vital signs, nurses notes, lab test result(s), EKG, radiologic studies, pkl CT scan, plain films. 08/02 01:33 Order name: Basic Metabolic Panel; Complete Time: 03:12 ea 08/02 01:33 Order name: CBC with Diff; Complete Time: 03:08 08/02 01:33 Order name: LFT's; Complete Time: 03:12 08/02 01:33 Order name: Magnesium; Complete Time: 03:12 ea 08/02 01:33 Order name: NT PRO-BNP; Complete Time: 03:12 08/02 01:33 Order name: PT-INR; Complete Time: 03:08 08/02 01:33 Order name: Troponin (emerg Dept Use Only); Complete Time: 03:12 ea 08/02 01:33 Order name: XRAY Chest (1 view) 08/02 02:46 Order name: D-Dimer; Complete Time: 03:08 EDPA 08/02 03:15 Order name: CT Chest For PE Angio pk 08/02 03:41 Order name: Troponin (emerg Dept Use Only); Complete Time: 04:57 pkl 08/02 01:33 Order name: EKG; Complete Time: 01:34 ea 08/02 01:33 Order name: Cardiac monitoring; Complete Time: 01:52 08/02 01:33 Order name: EKG - Nurse/Tech; Complete Time: 01:52 08/02 01:33 Order name: IV Saline Lock; Complete Time: 01:52 08/02 01:33 Order name: Labs collected and sent; Complete Time: 01:52 08/02 01:33 Order name: O2 Per Protocol; Complete Time: 01:52 08/02 01:33 Order name: O2 Sat Monitoring; Complete Time: :52 08/02 03:41 Order name: EKG; Complete Time: 03:42 pkl Administered Medications: 01:58 Drug: Nitroglycerin 0.4 mg Route: Sublingual; 02:40 Follow up: Response: No adverse reaction; Blood pressure is lowered 03:20 Drug: Magnesium Sulfate 1 grams Route: IVPB; Infused Over: 1 hrs; Site: right forearm; 05:25 Follow up: Response: No adverse reaction; IV Status: Completed infusion Disposition: 08/02/19 05:05 Discharged to Home. Impression: Chest pain. Uncontrolled hypertension. - Condition is Stable. - Medication Reconciliation Form, Thank You Letter, Antibiotic Education, Prescription Opioid Use form. - Follow up: Private Physician; When: 2 - 3 days; Reason: Re-evaluation by your physician. - Problem is new. - Symptoms have improved. Signatures: Dispatcher [employer] EDPA Adalid Griffith MD MD pkl Antunez, Elena RN RN Carlos Rolon Corrections: (The following items were deleted from the chart) 02:45 01:54 D-DIMER+COAG.LAB.BRZ ordered. EDPA EDMS 04:04 03:57 TROPONIN I+C.LAB.BRZ ordered. EDPA EDMS 05:25 05:05 08/02/2019 05:05 Discharged to Home. Impression: Chest pain. Uncontrolled hypertension. Condition is Stable. Forms are Medication Reconciliation Form, Thank You Letter, Antibiotic Education, Prescription Opioid Use. Follow up: Private Physician; When: 2 - 3 days; Reason: Re-evaluation by your physician. Problem is new. Symptoms have improved. pkl
[2019-08-02 05:38] VITALS: TEMP 98.1
[2019-08-02 05:43] VITALS: BP 161/85; O2SAT 98
--- NOTE | 2019-08-02 08:20 | RAD REPORT ---
EXAM DESCRIPTION: CT - Chest For Pe Angio - 08/02/2019 4:47 am CLINICAL HISTORY: Chest pain;Dyspnea COMPARISON: 01/05/2019 TECHNIQUE: CTA of the chest obtained following the uncomplicated intravenous administration of iodin ated contrast. 3-D/MIP reformatted images of the chest available for evaluation. Respiratory motion a rtifact. FINDINGS: Chest: Pulmonary arteries: Contrast bolus is adequate. No definite filling defects identified. Respiratory m otion artifact makes evaluation of the segmental and subsegmental pulmonary artery somewhat suboptima l. Thyroid: No abnormalities of the visualized thyroid. Great Vessels: Great vessels have normal anatomic configuration. Thoracic Aorta: Atherosclerotic calcification of the thoracic aorta. Heart: Coronary artery atherosclerosis. No cardiomegaly or significant pericardial effusion. Lymph Nodes: No enlarged mediastinal lymph nodes identified. Esophagus: No abnormalities of the esophagus identified. Other: No additional findings. Lungs: No airspace opacities identified. Pleura: No pleural effusion or pneumothorax. Trachea/Airways: No abnormalities of the visualized trachea or airways. Bones: No destructive osseous lesions. Upper Abdomen: Limited images of the upper abdomen demonstrate no definite abnormalities of visualize d portions of the liver, gallbladder, pancreas, spleen, adrenal glands, or kidneys. IMPRESSION: 1. No acute pulmonary embolus identified. 2. Coronary artery atherosclerosis. This exam was performed according to our departmental dose-optimization program, which includes autom ated exposure control, adjustment of the mA and/or kV according to patient size and/or use of iterati ve reconstruction technique. Electronically signed by: Vikas Mike 08/02/2019 4:40 AM EMERGENCY DEPARTMENT AIDE Due to temporary technical issues with the PACS/Fluency reporting system, reports are being signed by the in house radiologist as a courtesy to ensure prompt reporting. The interpreting radiologist is f ully responsible for the content of the report.
--- NOTE | 2019-08-02 09:39 | RAD REPORT ---
EXAM DESCRIPTION: RAD - Chest Single View - 08/02/2019 2:36 am CLINICAL HISTORY: Chest pain COMPARISON: November 26 TECHNIQUE: AP portable chest image was obtained 0232 hours . FINDINGS: Lungs are clear. Heart and vasculature are normal. No measurable pleural effusion and no p neumothorax. No acute bony abnormality seen. No acute aortic findings suspected. IMPRESSION: No acute cardiopulmonary process.
--- NOTE | 2019-08-02 10:15 | EKG ---
Test Date: 2019-08-02 Test Time: 03:46:59 Manufacturing Team Leader: ELLIOT MEASUREMENT RESULTS: Intervals: Rate: 75 IN: 190 QRSD: 102 QT: 412 QTc: 460 [place]: P: 14 IN: 190 QRS: 55 T: -77 INTERPRETIVE STATEMENTS: Normal sinus rhythm T wave abnormality, consider lateral ischemia Prolonged QT Abnormal ECG Compared to ECG 08/02/2019 01:38:50 Sinus tachycardia no longer present Electronically Signed On 08-02-19 10:15:05 LEATHER PRODUCTION MACHINE OPERATOR by Manpreet Vazquez
--- NOTE | 2019-08-02 10:15 | EKG ---
Test Date: 2019-08-02 Test Time: 01:38:50 Product Strategy Director: ELLIOT MEASUREMENT RESULTS: Intervals: Rate: 102 NC: 174 QRSD: 102 QT: 372 QTc: 484 [place]: P: 69 NC: 174 QRS: 67 T: -12 INTERPRETIVE STATEMENTS: Sinus tachycardia ST & T wave abnormality, consider inferior ischemia Abnormal ECG Compared to ECG 03/28/2019 05:50:02 ST (T wave) deviation now present Possible ischemia now present Sinus rhythm no longer present Electronically Signed On 08-02-19 10:15:21 WAREHOUSE DISTRIBUTION ASSOCIATE by Manpreet Vazquez
--- NOTE | 2019-08-02 10:15 | EKG ---
Test Date: 2019-08-02 Test Time: 03:49:45 Supervisor Fabrication: ISAÍAS MEASUREMENT RESULTS: Intervals: Rate: 74 NM: 198 QRSD: 104 QT: 418 QTc: 463 [place]: P: 31 NM: 198 QRS: 53 T: 220 INTERPRETIVE STATEMENTS: Normal sinus rhythm T wave abnormality, consider inferolateral ischemia Prolonged QT Abnormal ECG Compared to ECG 08/02/2019 03:46:59 No significant changes Electronically Signed On 08-02-19 10:14:43 AUDIOVISUAL LIBRARIAN by Manpreet Vazquez
== END 2019-08-02 05:25 | disposition home or self-care (01) ==
LOC: ER 01:29
DX: I10 Essential (primary) hypertension (principal); E11.9 Type 2 diabetes mellitus without complications; Z79.82 Long term (current) use of aspirin; Z79.4 Long term (current) use of insulin; Z88.8 Allergy status to other drugs, medicaments and biological substances; Z85.528 Personal history of other malignant neoplasm of kidney
CPT/HCPCS: 96365; 93005 ×3; 85025; 80048; 36415; 83735; 85610; 85379; 80076; 84484 ×2; 83880; 71275; 71045; 99285; 96366; Q9967; J3475

== ENCOUNTER 2019-08-03 10:00 | Observation (INO) | payer OTHER ==
[~2019-08-03 10:00] MED LIST: PRASUGREL (EFFIENT) 10 MG TAB PO ONE
--- OUTSIDE RECORDS SUMMARY | 2019-08-03 10:13 | XMS REPORT ---
:1950 [facility] Rangel Cody [address] [place] [id number] Care Team Providers Name Role Phone Unavailable Unavailable Unavailable Problems This patient has no known problems. Allergies, Adverse Reactions, Alerts This patient has no known allergies or adverse reactions. Medications This patient has no known medications.
[2019-08-03] MEDS ORDERED: ATROPINE SULF 1 MG/10 ML SYR IV ONE (10:44)
[2019-08-03] MEDS ORDERED: MIDAZOLAM HCL 2 MG/2 ML INJ ONE ×4 (10:44→11:43)
[2019-08-03] MEDS ORDERED: NA CHLORIDE 0.9% 0 ML ONE (10:44)
[2019-08-03] MEDS ORDERED: FENTANYL CITR 100 MCG/2 ML ONE (10:44)
[2019-08-03] MEDS ORDERED: NITROGLYCERIN/D5W 25 MG/250 ML BTL IV ONE (10:45)
[2019-08-03] MEDS ORDERED: NITROGLYCERIN 100 MCG/ML SYR (for cath lab use only) IV ONE (10:45)
[2019-08-03] MEDS ORDERED: FENTANYL CITR 100 MCG/2 ML IV ONE (10:45)
[2019-08-03] MEDS ORDERED: LIDOCAINE 1% MPF 30 ML VIAL ONE (10:47)
[2019-08-03] MEDS ORDERED: HEPA 1000U/500MLS 1,000 UNIT/500 ML BAG IV ONE ×2 (10:47→10:48)
[2019-08-03] MEDS ORDERED: NA CHLORIDE 0.9% 100 ML IV ONE (10:51)
[2019-08-03] MEDS ORDERED: PRASUGREL (EFFIENT) 10 MG TAB PO ONE (11:00)
[2019-08-03] MEDS ORDERED: NA CHLORIDE 0.9% 500 ML ONE (11:01)
[2019-08-03] MEDS ORDERED: MIDAZOLAM HCL 2 MG/2 ML INJ IV ONE (11:09)
[2019-08-03] MEDS ORDERED: METOPROLOL TARTRATE 5 MG/5 ML INJ IV ONE ×2 (11:11→11:46)
[2019-08-03] MEDS ORDERED: HYDRALAZINE HCL 20 MG/ML VIAL ONE (11:11)
[2019-08-03 11:12] LABS: Absolute Lymphocytes (CBC) 1.2 K/uL (0.7-4.9); Basophils % 1.1 % (0-1.3); Hematocrit 44.7 % (39.6-49.0); MPV 8.7 fL (7.6-11.3); RBC Red Blood Cell Count 5.04 M/uL (4.33-5.43)
--- NOTE | 2019-08-03 11:14 | ER ---
Nurse's Notes [facility] Name: Guanakito Guzman Age: 68 yrs Sex: Male : 1950 Arrival Date: 08/03/2019 Time: 10:04 Bed External Waiting Private MD: Ryan Tirado V Diagnosis: Unstable angina ED Course: 08/03 10:04 Patient arrived in ED. as 10:04 Ryan Tirado MD is Private Physician. as 10:21 EKG done, by ED staff. jb1 10:36 Steven Munoz LVN is Primary Nurse. em 10:41 Initial lab(s) drawn, by me, sent to lab. Inserted saline lock: 22 gauge in right jb1 antecubital area, using aseptic technique. Blood collected. 11:13 Ryan Tirado MD is Hospitalizing Provider. iw Administered Medications: No medications were administered Outcome: 11:13 Decision to Hospitalize by Provider. iw 11:14 Patient left the ED. iw Signatures: Mann Dumont jb1 Steven Munoz LVN LVN em Jessica Pradhan Irene, RN RN iw
[2019-08-03 11:15] LABS: Protime INR 0.91
[2019-08-03] MEDS ORDERED: cloNIDine HCL 0.1 MG TAB ONE (11:17)
[2019-08-03 11:49] LABS: Albumin 3.5 g/dL (3.4-5.0); Bilirubin Direct 0.1 mg/dL (0-0.2); Bilirubin Total 0.5 mg/dL (0.2-1.0); Magnesium 1.7 mg/dL (1.8-2.4); Phosphorus 2.7 mg/dL (2.5-4.9); Potassium 3.5 mmol/L (3.5-5.1); Protein, Total 7.5 g/dL (6.4-8.2); Thyroid Stimulating Hormone 3.27 uIU/mL (0.360-3.740)
[2019-08-03] MEDS ORDERED: PRASUGREL (EFFIENT) 10 MG TAB ONE (11:53)
[2019-08-03] MEDS ORDERED: ASPIRIN 325 MG TAB ONE (11:55)
[2019-08-03] MEDS ORDERED: ACETAMINOPHEN 325 MG TABLET PO PRN (13:00)
[2019-08-03] MEDS ORDERED: NITROGLYCERIN 0.4 MG/TAB SL PRN ×2 (13:00→13:31)
[2019-08-03] MEDS ORDERED: NA CHLORIDE 0.9% 1,000 ML IV SCH (13:00)
[2019-08-03] MEDS ORDERED: MORPHINE 5 MG/ML VIAL IV PRN (13:17)
[2019-08-03] MEDS ORDERED: ZOLPIDEM TARTRATE 10 MG TABLET PO PRN (13:18)
[2019-08-03 13:31] VITALS: BMI 40.0
[2019-08-03] MEDS ORDERED: ASPIRIN EC 325 MG TABLET PO ONE (14:00)
[2019-08-03] MEDS ORDERED: ZOLPIDEM TARTRATE 5 MG TABLET PO PRN (14:00)
[2019-08-03 16:20] VITALS: O2SAT 98
--- NOTE | 2019-08-03 17:06 | CON ---
Date of Consultation: 08/03/2019 Admitted urgently today through the emergency room by Dr. Tirado on 08/03/2019. Reason For Consultation: Unstable angina and history of coronary artery disease. History Of Present Illness: Mr. Guzman is 68, has a history of diabetes, hypertension, dyslipidemia , as well as coronary artery disease status post LAD stent in the past. He came in with a hypertensi ve crisis, substernal chest pressure and was brought actually to the laborer hide house directly for catheteriz ation and possible coronary intervention. He also has a history of obesity, neuropathy, anxiety, dep ression, restless legs syndrome, and kidney cancer in the past. He denied PND, orthopnea, pedal jermaine a, palpitations, or syncope. Denied nausea, vomiting, diaphoresis. Denied fever or chills. Past Medical History: As stated above. Allergies: DROPERIDOL. Review of Systems: Negative. Social History: Negative. Family History: Positive for heart disease and diabetes. Medications At Home: Clonidine, hydralazine, insulin, doxazosin, Victoza, Lasix, and venlafaxine. Physical Examination: Vital Signs: Noted to be hypertensive. Patient was running about 190/90. HEENT: Negative. Neck: Supple. No bruit, lymphadenopathy, JVD, or thyromegaly. Chest: Clear to auscultation and percussion. Cardiac: Revealed irregularly irregular rhythm and rate with an S4 gallops. Abdomen: Obese. Extremities: Revealed no clubbing, cyanosis, or edema. Diagnostic Data: His hemoglobin was 14.4. His first troponin was 0.03. His glucose was 269, creati nine is 1.37. Chest x-ray is negative. EKG is negative. Echocardiogram in 2017 was normal. Chest x-ray was normal. Impression And Plan: Unstable angina, coronary artery disease, hypertensive crisis. We will take hi m to the laborer hide house today to evaluate his coronary anatomy. Other problems including diabetes, kidney dysfunction, history of kidney failure, obesity, neuropathy, anxiety, depression, and restless legs s yndrome seems to be stable. I am very concerned about his blood pressure. He is already on hydralaz ine, clonidine, and doxazosin. He has, in the past, been intolerant to beta blockers and diuretics, but I think we should add amlodipine and think of some kind of diuretic that he can tolerate. I will discuss the case further with Dr. Tirado after the angiography is done. TIARA/WELLINGTON Voice ID: [id number] Report ID: [id number]
[2019-08-03] MEDS ORDERED: MORPHINE 4 MG/ML SYR IV PRN (18:00)
[2019-08-03] MEDS ORDERED: cloNIDine HCL 0.1 MG TAB PO PRN (18:34)
[2019-08-03] MEDS ORDERED: HOME MED 1 EA UNK (Linaclotide [Linzess] 290 MCG) PO SCH (18:45)
[2019-08-03] MEDS: HYDRALAZINE HCL 25 MG TABLET PO SCH (20:17)
[2019-08-03] MEDS: ROPINIROLE HCL 1 MG TAB PO SCH (20:17)
[2019-08-03] MEDS: cloNIDine HCL 0.1 MG TAB PO SCH (20:18)
[2019-08-03] MEDS: INSULIN LISPRO 100 UNIT/1 ML SQ SCH (20:19)
[2019-08-03] MEDS ORDERED: INSULIN GLARGINE 100 UNITS/ML SQ SCH (21:00)
[2019-08-03] MEDS ORDERED: AMITRIPTYLINE 25 MG TAB PO SCH (21:00)
[2019-08-03] MEDS ORDERED: LIRAGLUTIDE 1.2 UNIT SQ SCH (21:00)
--- NOTE | 2019-08-03 22:36 | OP ---
Date of Procedure: 08/03/2019 Surgeon: Brandon Mccallum MD Product Marketing Director: Marielle Solorzano. Procedures: Left heart catheterization, selective coronary arteriogram, angioplasty and stent of the mid LAD. Indication: Unstable angina and coronary artery disease. History Of Present Illness: Mr. Guzman is a patient who is 68-year-old, has a history of hypertensi on, diabetes, dyslipidemia, neuropathy, obesity, has had a history of coronary artery disease status post proximal LAD stents years ago, comes into the emergency room with classic unstable angina sympto ms and Dr. Tirado and I have discussed his case and we decided to bring him to the public works laborer rather urg ently because of continued symptoms. He was brought to the public works laborer, prepped and draped in the routi ne sterile fashion. A 6-Surinamese sheath introduced in the right common femoral artery successfully. A ngiography, there was normal angiogram. Angio-Seal was used to close the case. A 6-Surinamese Frederick c atheter was used for the diagnostic catheterization. He was found to have mild RCA and circumflex pl aquing. His left main was normal. His circumflex has some minimal plaquing. He had a 90% mid LAD l esion after an old LAD stent. A 6-Surinamese guide catheter XB LAD with side hole was used to cannulate the left main. A [place] wire 0.014 was used to cross the lesion. The region was initially pre-dilat ed with a 2.5 x 12 balloon at 11 atmosphere doing multiple dilatation. Following that, we did a 3.0 x 16 stent and then overlapped that with a 3.0 x 12 Synergy stent. Both were then deployed at 11 whitley osphere, overlapped the new stents together and with the old stent. There was 0% residual. No compl ications. Blood Loss: 10 mL. Anesthesia: Total conscious sedation was 45 minutes. The patient received Angiomax, aspirin, and Effient during the procedure. Final Diagnoses: Coronary artery disease, unstable angina status post successful angioplasty and jacquelin nt of the mid LAD. The patient will stay at bedrest for 4 hours, stay here overnight and sent him ho me tomorrow morning. TIARA/WELLINGTON Voice ID: [id number] Report ID: [id number]
[2019-08-04 04:14] LABS: Urine Appearance CLEAR; Urine Bilirubin NEGATIVE (NEG); Urine Blood NEGATIVE (NEG); Urine Color YELLOW; Urine Glucose TRACE (NEG); Urine Protein 3+ (NEG); Urine Specific Gravity >=1.030 (1.005-1.030); Urine Urobilinogen 0.2 mg/dL (0.2-1.0); Urine pH 5.5 (5.0-7.0)
[2019-08-04 04:20] LABS: Urine Microscopic Reflex ORDER UMIC
[2019-08-04 05:01] LABS: Urine Bacteria <20 /HPF (NONE SEEN); Urine Culture Reflex Order NOT NEEDED; Urine RBC <5 /HPF (NONE SEEN)
[2019-08-04] MEDS ORDERED: CLOPIDOGREL 75 MG TABLET PO SCH (09:00)
[2019-08-04] MEDS: cloNIDine HCL 0.1 MG TAB PO SCH (09:00)
[2019-08-04] MEDS ORDERED: CYANOCOBALAMIN 1,000 MCG TAB PO SCH (09:00)
[2019-08-04] MEDS: INSULIN LISPRO 100 UNIT/1 ML SQ SCH (09:00)
[2019-08-04] MEDS: HYDRALAZINE HCL 25 MG TABLET PO SCH (09:00)
[2019-08-04] MEDS ORDERED: DOXAZOSIN 4 MG TAB PO SCH (09:00)
[2019-08-04] MEDS ORDERED: FUROSEMIDE 40 MG TABLET PO SCH (09:00)
[2019-08-04] MEDS: ROPINIROLE HCL 1 MG TAB PO SCH (09:00)
[2019-08-04] MEDS ORDERED: INFLUENZA VACCINE (for 3y+) 0.5 ML DOSE IMVAC ONE (09:00)
[2019-08-04] MEDS ORDERED: VENLAFAXINE HCL XR 75 MG CAP PO SCH (09:00)
[2019-08-04] MEDS ORDERED: ASPIRIN EC 81 MG TAB PO SCH (09:00)
[2019-08-04] MEDS ORDERED: VITAMIN D 5,000 UNIT CAP PO SCH (09:00)
[2019-08-04 12:03] VITALS: BP 160/78; TEMP 96.8
--- NOTE | 2019-08-04 18:38 | EKG ---
Test Date: 2019-08-03 Test Time: 10:19:55 Inserter Promotional Item: SHARON MEASUREMENT RESULTS: Intervals: Rate: 108 DE: 176 QRSD: 102 QT: 348 QTc: 466 [place]: P: 64 DE: 176 QRS: 42 T: 137 INTERPRETIVE STATEMENTS: Sinus tachycardia Nonspecific T wave abnormality Abnormal ECG Compared to ECG 08/02/2019 03:49:45 Sinus rhythm no longer present Possible ischemia no longer present Prolonged QT interval no longer present T-wave abnormality still present Electronically Signed On 08-04-19 18:37:31 DIAMOND POLISHER by Manpreet Vazquez
--- NOTE | 2019-08-05 01:08 | DS ---
Date of Discharge: 08/04/2019 Final Diagnoses: Left anterior descending, coronary artery disease. Secondary Diagnoses: Diabetes mellitus, hypertension, osteoarthritis, chronic renal insufficiency, m orbid obesity, diabetic neuropathy, restless legs syndrome. Hospital Course: The patient is a 68-year-old gentleman, has multiple medical problems. He is not c ompliant with his diet despite multiple different visits and advice as to control the diet and intake and lose weight. Now, I think after he has a coronary event, he will possibly change his diet. He comes into the office yesterday with exertional chest pain and shortness of breath. I immediately ca lled Dr. Mccallum because he is a high risk for coronary artery disease. He was in the emergency room with the same symptoms about 3-4 days ago and had done all kind of workup and it was negative, he wa s sent home, but he actually has unstable angina, so we had angiogram performed. Dr. Mccallum found L AD stenosis, needing a stent and he performed a stent placement. Now, patient will be on Plavix 75 m g once a day, Lipitor 40 mg once a day. He was on a statin before, but I do not see that on the list any longer, he might have missed taking it. He is back on Bystolic 20 mg once a day. His blood pre ssure control has been very poor with compliance issues with the diet and needing multiple medication s to control it. His A1c is 8.4. If he loses weight, he will get off multiple medications and he coats s been explained to this in detail with his multiple times. Prognosis, guarded. The patient is discharged home. AMANDAD/MODL Voice ID: [id number] Report ID: [id number]
[2019-08-05] MEDS ORDERED: NEBIVOLOL HCL 20 MG TABLET PO SCH (09:00)
[2019-08-08 17:53] LABS: Vitamin D 1,25-Dihydroxy Total 29 pg/mL (18-72); Vitamin D,1,25-OH2, D2 <8 pg/mL
== END 2019-08-04 12:15 | disposition home or self-care (01) ==
LOC: EDSTATUS 10:00 → ER 10:00 → ERHOLD 10:03 → 4TH 12:46
PROVIDERS: ADMIT Internal Medicine; ATTEND Internal Medicine
DX: I25.110 Atherosclerotic heart disease of native coronary artery with unstable angina pectoris (principal); I12.9 Hypertensive chronic kidney disease with stage 1 through stage 4 chronic kidney disease, or unspecified chronic kidney disease; E11.22 Type 2 diabetes mellitus with diabetic chronic kidney disease; N18.3 Chronic kidney disease, stage 3 (moderate); M19.90 Unspecified osteoarthritis, unspecified site; E66.01 Morbid (severe) obesity due to excess calories; Z68.41 Body mass index [BMI] 40.0-44.9, adult; E11.40 Type 2 diabetes mellitus with diabetic neuropathy, unspecified; G25.81 Restless legs syndrome
CPT/HCPCS: 93005; 85025; 36415; 83735; 84100; 85610; 82947 ×5; 85347 ×2; 85730; 82652; 84443; 82248; 83036; 82570; 82607; 80053; 82043; 93454; C1893; C1760; C1725; C1877; C9600; J0360; J2250 ×3; J3010; J0583 ×2; G0378 ×4; J7040; 81003; 81015; J1815

== ENCOUNTER 2019-12-07 20:30 | Emergency (ER) | payer OTHER ==
--- OUTSIDE RECORDS SUMMARY | 2019-12-07 20:32 | XMS REPORT ---
:1950 [address] [facility] t Address [address] [place] [address] Dr. Cody [address] [place] [id number] Care Team Providers Name Role Phone Unavailable Unavailable Unavailable Problems This patient has no known problems. Allergies, Adverse Reactions, Alerts This patient has no known allergies or adverse reactions. Medications This patient has no known medications.
[2019-12-08 00:02] LABS: Absolute Lymphocytes (CBC) 1.2 K/uL (0.7-4.9); Hematocrit 40.6 % (39.6-49.0); Lymphocytes % 17.2 % (15.3-44.8); MPV 8.4 fL (7.6-11.3)
[2019-12-08 00:03] LABS: Protime INR 1.05
[2019-12-08 00:39] LABS: Bilirubin Direct 0.1 mg/dL (0-0.2); Bilirubin Total 0.5 mg/dL (0.2-1.0); Magnesium 1.7 mg/dL (1.8-2.4); Potassium 3.7 mmol/L (3.5-5.1); Protein, Total 6.5 g/dL (6.4-8.2); Troponin (Emerg Dept Use Only) 0.03 ng/mL (0.0-0.045)
--- NOTE | 2019-12-08 00:48 | ER ---
Nurse's Notes [facility] Name: Guanakito Guzman Age: 69 yrs Sex: Male : 1950 Arrival Date: 12/07/2019 Time: 20:32 Bed 5 Private MD: Diagnosis: Hypertensive urgency Presentation: 12/06 20:48 Chief complaint: Patient states: ANDERSON's and elevated BP's for 2 days. BP 213\E\113 at home, ll1 took an extra clonidine. Coronavirus screen: Proceed with normal triage. Patient denies a cough. Patient denies shortness of breath or difficulty breathing. Patient denies measured and/or subjective temperature greater than 100.4F prior to today's visit. Patient denies travel on a cruise ship or to a country the [facility] currently lists as an affected area. Patient denies contact with known and/or suspected case of COVID-19. Ebola Screen: Patient denies travel to an Ebola-affected area in the 21 days before illness onset. Initial Sepsis Screen: Does the patient meet any 2 criteria? No. Patient's initial sepsis screen is negative. Does the patient have a suspected source of infection? No. Patient's initial sepsis screen is negative. Risk Assessment: Do you want to hurt yourself or someone else? Patient reports no desire to harm self or others. Onset of symptoms was December 06, 2019. 20:48 Method Of Arrival: Ambulatory ll1 20:48 Acuity: SHAILA 3 ll1 Historical: - Allergies: 20:51 Inapsine; ll1 - PMHx: 20:51 Diabetes - IDDM; Hypertension; kidney cancer; lymphedema; ll1 - Immunization history:: Adult Immunizations unknown. - Social history:: Patient/guardian denies using alcohol, street drugs, tobacco products, Smoking status: unknown. Screenin:58 Abuse screen: Denies threats or abuse. Nutritional screening: No deficits noted. jd3 Tuberculosis screening: No symptoms or risk factors identified. Fall Risk Ambulatory Aid- None/Bed Rest/Nurse Assist (0 pts). Gait- Normal/Bed Rest/Wheelchair (0 pts) Mental Status- Oriented to own ability (0 pts). Total Mcneal Fall Scale indicates No Risk (0-24 pts). Assessment: 20:56 General: Appears in no apparent distress. uncomfortable, Behavior is calm, cooperative, jd3 appropriate for age. Pain: Complains of pain in head Quality of pain is described as aching. Neuro: Level of Consciousness is awake, alert, obeys commands, Oriented to person, place, time, situation. Cardiovascular: Denies chest pain, shortness of breath, Heart tones S1 S2 present Capillary refill < 3 seconds Patient's skin is warm and dry. Respiratory: Airway is patent Respiratory effort is even, unlabored, Respiratory pattern is regular, symmetrical, Breath sounds are clear bilaterally. Denies cough, shortness of breath. GI: No signs and/or symptoms were reported involving the gastrointestinal system. Patient currently denies constipation, diarrhea, nausea, vomiting. : No signs and/or symptoms were reported regarding the genitourinary system. EENT: No signs and/or symptoms were reported regarding the EENT system. Derm: Skin is intact, Skin is dry, Skin is normal, Skin temperature is warm. Musculoskeletal: Circulation, motion, and sensation intact. Range of motion: intact in all extremities, Swelling present in right leg and left leg. 22:08 Reassessment: Patient appears in no apparent distress at this time. Patient and/or d3 family updated on plan of care and expected duration. Pain level reassessed. Patient is alert, oriented x 3, equal unlabored respirations, skin warm/dry/pink. awaiting results Patient states feeling better. 23:10 Reassessment: Jomar from outside lab reports the specimen drawn earlier has hemolyzed, sg a recollect is needed on all orders at this time, notified, phlebotomy contacted for assistance with blood draw, pt difficult stick. 23:22 Reassessment: Patient appears in no apparent distress at this time. No changes from j previously documented assessment. Patient and/or family updated on plan of care and expected duration. Pain level reassessed. Patient is alert, oriented x 3, equal unlabored respirations, skin warm/dry/pink. 23:50 Reassessment: phlabotomy at bedside redrawing blood. [facility] 12/07 00:35 Reassessment: Patient appears in no apparent distress at this time. Patient and/or [facility] family updated on plan of care and expected duration. Pain level reassessed. Patient is alert, oriented x 3, equal unlabored respirations, skin warm/dry/pink. awaiting labs results and disposition. 01:03 Reassessment: Patient appears in no apparent distress at this time. Patient and/or jd3 family updated on plan of care and expected duration. Pain level reassessed. Patient is alert, oriented x 3, equal unlabored respirations, skin warm/dry/pink. pt reported understanding of discharge instructions. even and steady gait upon discharge. Patient states feeling better. Vital Signs: 12/06 20:48 BP 173 / 87; Pulse 90; Resp 19; Temp 98.3; Pulse Ox 98% ; Pain 7/10; ll1 20:56 BP 160 / 81; Pulse 86; Resp 17 S; Pulse Ox 98% on R/A; jd3 22:07 BP 106 / 58; Pulse 85; Resp 17 S; Pulse Ox 99% on R/A; jd3 23:50 BP 121 / 74; Pulse 84; Resp 17 S; Pulse Ox 98% on R/A; jd3 12/07 00:56 BP 120 / 68; Pulse 78; Resp 19; Pulse Ox 98% on R/A; ea ED Course: 12/06 20:32 Patient arrived in ED. ds1 20:40 Naveen Scott MD is Attending Physician. tw4 20:50 Ji Vaughan, LORAINE is Primary Nurse. jd3 20:51 Triage completed. ll1 20:52 Arm band placed on Patient placed in an exam room, on a stretcher. ll1 20:58 Patient has correct armband on for positive identification. Bed in low position. Call jd3 light in reach. Side rails up X 1. Pulse ox on. NIBP on. 21:40 Missed attempt(s): 20 gauge in right wrist. Bleeding controlled, band aid applied, jd3 catheter tip intact. 22:02 XRAY Chest (1 view) In Process Unspecified. EDMS 22:44 Initial lab(s) drawn, by me, sent to lab. Missed attempt(s): 22 gauge in left forearm. sg Bleeding controlled, band aid applied, catheter tip intact. Missed attempt(s): 22 gauge in right hand. Bleeding controlled, band aid applied, catheter tip intact. 12/07 00:57 No provider procedures requiring assistance completed. Patient did not have IV access ea during this emergency room visit. Administered Medications: No medications were administered Outcome: 00:48 Discharge ordered by . tw4 01:04 Discharged to home ambulatory, with family. jd3 01:04 Condition: stable 01:04 Discharge instructions given to patient, Instructed on discharge instructions, follow up and referral plans. Demonstrated understanding of instructions, follow-up care. 01:04 Patient left the ED. jd3 Signatures: Dispatcher [employer] EDMS Brock Sams, LORAINE RN vesna Marlyn Walker ds1 Delmi Farris RN RN ea Davies, Jonathon, RN RN jNaveen Osei MD MD tw4 Bradley Treadwell RN RN ll1 Corrections: (The following items were deleted from the chart) 05 20:59 20:56 Musculoskeletal: Circulation, motion, and sensation intact. Range of motion: jd3 intact in all extremities, jd3 22:40 22:40 Missed attempt(s): 20 gauge in right wrist. Bleeding controlled, band aid jd3 applied, catheter tip intact. jd3 12/07 01:03 00:38 BP 121 / 74; Pulse 84bpm; Resp 17bpm; Spontaneous; Pulse Ox 98% RA; jd3 jd3
--- NOTE | 2019-12-08 00:49 | EDPHYS ---
Physician Documentation [facility] Name: Guanakito Guzman Age: 69 yrs Sex: Male : 1950 Arrival Date: 12/07/2019 Time: 20:32 Bed 5 Private MD: ED Physician Naveen Scott HPI: 12/06 22:57 This 69 yrs old Male presents to ER via Ambulatory with complaints of High tw4 Blood Pressure. 22:57 The patient has elevated blood pressure and discovered this at home. Onset: The tw4 symptoms/episode began/occurred yesterday. Modifying factors: The symptoms are aggravated by. Associated signs and symptoms: Pertinent positives: headache. Severity of symptoms: At its worst the blood pressure was 200 mm Hg. The patient has not experienced similar symptoms in the past. Historical: - Allergies: 20:51 Inapsine; ll1 - PMHx: 20:51 Diabetes - IDDM; Hypertension; kidney cancer; lymphedema; ll1 - Immunization history:: Adult Immunizations unknown. - Social history:: Patient/guardian denies using alcohol, street drugs, tobacco products, Smoking status: unknown. ROS: 22:57 Constitutional: Negative for fever, chills, and weight loss, Eyes: Negative for injury, tw4 pain, redness, and discharge, Cardiovascular: Negative for chest pain, palpitations, and edema, Respiratory: Negative for shortness of breath, cough, wheezing, and pleuritic chest pain, Abdomen/GI: Negative for abdominal pain, nausea, vomiting, diarrhea, and constipation, Back: Negative for injury and pain, MS/Extremity: Negative for injury and deformity, Skin: Negative for injury, rash, and discoloration. 22:57 Neuro: Positive for headache. Exam: 22:57 Constitutional: This is a well developed, well nourished patient who is awake, alert, tw4 and in no acute distress. Head/Face: Normocephalic, atraumatic. Chest/axilla: Normal chest wall appearance and motion. Nontender with no deformity. No lesions are appreciated. Cardiovascular: Regular rate and rhythm with a normal S1 and S2. No gallops, murmurs, or rubs. Normal PMI, no JVD. No pulse deficits. Respiratory: Lungs have equal breath sounds bilaterally, clear to auscultation and percussion. No rales, rhonchi or wheezes noted. No increased work of breathing, no retractions or nasal flaring. Abdomen/GI: Soft, non-tender, with normal bowel sounds. No distension or tympany. No guarding or rebound. No evidence of tenderness throughout. Back: No spinal tenderness. No costovertebral tenderness. Full range of motion. MS/ Extremity: Pulses equal, no cyanosis. Neurovascular intact. Full, normal range of motion. Neuro: Awake and alert, GCS 15, oriented to person, place, time, and situation. Cranial nerves II-XII grossly intact. Motor strength 5/5 in all extremities. Sensory grossly intact. Cerebellar exam normal. Normal gait. Vital Signs: 20:48 BP 173 / 87; Pulse 90; Resp 19; Temp 98.3; Pulse Ox 98% ; Pain 7/10; ll1 20:56 BP 160 / 81; Pulse 86; Resp 17 S; Pulse Ox 98% on R/A; jd3 22:07 BP 106 / 58; Pulse 85; Resp 17 S; Pulse Ox 99% on R/A; jd3 23:50 BP 121 / 74; Pulse 84; Resp 17 S; Pulse Ox 98% on R/A; jd3 12/07 00:56 BP 120 / 68; Pulse 78; Resp 19; Pulse Ox 98% on R/A; ea MDM: 12/06 20:40 Patient medically screened. tw4 22:57 Differential diagnosis: hypertensive crisis, Malignant HTN. Data reviewed: vital signs, tw4 nurses notes. Data interpreted: Pulse oximetry: Interpretation: normal. Counseling: I had a detailed discussion with the patient and/or guardian regarding: the historical points, exam findings, and any diagnostic results supporting the discharge/admit diagnosis. Special discussion: I discussed with the patient/guardian in detail that at this point there is no indication for admission to the hospital. It is understood, however, that if the symptoms persist or worsen the patient needs to return immediately for re-evaluation. 12/06 21:35 Order name: Basic Metabolic Panel tw4 12/06 21:35 Order name: CBC with Diff tw4 12/06 21:35 Order name: LFT's tw4 12/06 21:35 Order name: Magnesium tw4 12/06 21:35 Order name: NT PRO-BNP tw4 12/06 21:35 Order name: PT-INR tw4 05/05 21:35 Order name: Troponin (emerg Dept Use Only) 12/06 21:35 Order name: XRAY Chest (1 view) 12/06 21:35 Order name: EKG; Complete Time: 21:36 12/06 21:35 Order name: Cardiac monitoring; Complete Time: 21:36 12/06 21:35 Order name: EKG - Nurse/Tech; Complete Time: 22:01 12/06 21:35 Order name: IV Saline Lock; Complete Time: 23:15 12/06 21:35 Order name: Labs collected and sent; Complete Time: 22:45 12/06 21:35 Order name: O2 Per Protocol; Complete Time: 21:36 12/06 21:35 Order name: O2 Sat Monitoring; Complete Time: 21:36 EC/06 02:19 Rate is 84 beats/min. Rhythm is regular. QRS [place] is Normal. OR interval is normal. QRS tw4 interval is normal. QT interval is normal. No Q waves. T waves are Normal. No ST changes noted. Clinical impression: NSR w/ Non-specific ST/T Changes and LVH. Interpreted by me. Reviewed by me. Administered Medications: No medications were administered Disposition: 12/08/19 00:48 Discharged to Home. Impression: Hypertensive urgency. - Condition is Stable. - Discharge Instructions: Hypertension. - Medication Reconciliation Form, Thank You Letter, Antibiotic Education, Prescription Opioid Use form. - Follow up: Private Physician; When: Upon discharge from the Emergency Department; Reason: Recheck today's complaints, Continuance of care, Re-evaluation by your physician. - Problem is new. - Symptoms have improved. Signatures: Dispatcher [employer] EDMS Ji Vaughan RN RN jd3 Naveen Scott MD MD tw4 Bradley Treadwell RN RN ll1 Corrections: (The following items were deleted from the chart) 01:04 00:48 12/08/2019 00:48 Discharged to Home. Impression: Hypertensive urgency. Condition jd3 is Stable. Forms are Medication Reconciliation Form, Thank You Letter, Antibiotic Education, Prescription Opioid Use. Follow up: Private Physician; When: Upon discharge from the Emergency Department; Reason: Recheck today's complaints, Continuance of care, Re-evaluation by your physician. Problem is new. Symptoms have improved. tw4
[2019-12-08 01:53] VITALS: TEMP 98.3
[2019-12-08 01:57] VITALS: O2SAT 98
[2019-12-08 01:59] VITALS: BP 120/68
--- NOTE | 2019-12-08 07:11 | RAD REPORT ---
EXAM DESCRIPTION: RAD - Chest Single View - 12/07/2019 10:02 pm CLINICAL HISTORY: Hypertension, chest pain COMPARISON: Portable July 2019 TECHNIQUE: AP portable chest image was obtained 12/07/2019 10:02 pm . FINDINGS: Lungs are slightly underinflated. No peripheral mass or consolidation. Heart, vasculature and lung markings are not clearly different from comparison. Heart and vasculature are normal. No guerline surable pleural effusion and no pneumothorax. No acute bony abnormality seen. No acute aortic finding s suspected. IMPRESSION: No acute cardiopulmonary process. No significant change from comparison.
--- NOTE | 2019-12-08 16:19 | EKG ---
Test Date: 2019-12-07 Test Time: 22:01:49 Clinical Secretary: KRISTY MEASUREMENT RESULTS: Intervals: Rate: 84 ID: [id number] QRSD: 98 QT: 422 QTc: 498 [place]coe: P: 27 ID: [id number] QRS: 15 T: 129 INTERPRETIVE STATEMENTS: Normal sinus rhythm Left ventricular hypertrophy with repolarization abnormality Prolonged QT Abnormal ECG Compared to ECG 08/03/2019 10:19:55 Left ventricular hypertrophy now present Early repolarization now present Prolonged QT interval now present Sinus tachycardia no longer present T-wave abnormality no longer present Electronically Signed On 12-08-19 16:17:02 CDT by Brandon Mccallum
== END 2019-12-08 01:04 | disposition home or self-care (01) ==
LOC: ER 20:30
DX: I16.0 Hypertensive urgency (principal); I10 Essential (primary) hypertension; Z88.8 Allergy status to other drugs, medicaments and biological substances; Z85.528 Personal history of other malignant neoplasm of kidney
CPT/HCPCS: 36415; 71045; 80048; 80076; 83735; 83880; 84484; 85025; 85610; 93005; 99284

== ENCOUNTER 2019-12-09 10:00 | Observation (INO) | payer OTHER ==
--- OUTSIDE RECORDS SUMMARY | 2019-12-09 10:30 | XMS REPORT | Clinical Summary ---
:1950 Author Organization [facility] Address [address] [place] [address] Care Team Providers Name Role Phone MD Candida Primary Care Provider Allergies Active Allergy Reactions Severity Noted Date Comments Droperidol 07/24/2018 Feels like craw ling in his skin Medications Medication Sig Dispensed Refills Start Date End Date Status hydrALAZINE (APRESOLINE) Take 100 mg 0 Active 100 MG tablet by mouth 2 (two) times a day. clonIDINE HCl (CATAPRES) Take 0.3 mg 0 Active 0.3 MG tablet by mouth 3 (three) times a day. doxazosin (CARDURA) 4 MG Take 4 mg by 0 Active tablet mouth nightly. gabapentin (NEURONTIN) 100 Take 100 mg 0 Active mg capsule by mouth 2 (two) times a day. insulin ASPART (NovoLOG) Inject 20 0 Active 100 unit/mL injection Units under the skin 3 (three) times a day before meals. insulin Inject 70 0 Active glargine,hum.rec.anlog Units under (BASAGLAR KWIKPEN U-100 the skin INSULIN SUBQ) nightly. linaclotide (LINZESS) 290 Take 290 mcg 0 Active mcg capsule by mouth 3 (three) times a week. propranolol HCl Take 120 mg 0 Ac tive (PROPRANOLOL ORAL) by mouth nightly. rOPINIRole (REQUIP) 1 MG Take 1 mg by 0 Active tablet mouth 3 (three) times a day. hydroCHLOROthiazide Take 25 mg by 0 Active (HYDRODIURIL) 25 MG tablet mouth daily. spironolactone (ALDACTONE) Take 25 mg by 0 Active 25 MG tablet mouth daily. venlafaxine XR (EFFEXOR-XR) Take 75 mg by 0 Active 75 MG 24 hr capsule mouth daily. liraglutide (VICTOZA 3-NISA Inject 1.2 mg 0 Active SUBQ) under the skin nightly. furosemide (LASIX) 20 mg Take 20 mg by 5 07/15/2018 Active tablet mouth daily. Active Problems Problem Noted Date Cervical radiculopathy due to intervertebral disc diso rder 07/31/2018 Family History Medical History Relation Name Comments Heart disease Father Hypertension Father Prostate cancer Father Stroke Father Breast cancer Maternal Aunt Arthritis Mother Emphysema Mother Lung disease Mother Relation Name Status Comments Father Maternal Aunt Mother Social History Tobacco Use Types Packs/Day Years Used Date Never Smoker Smokeless Tobacco: Never Used Alcohol Use Drinks/Week oz/Week Comments Yes 2-3 drinks per w [place] Sex Assigned at Date Recorded Not on file Job Start Date Occupation Industry Not on file Not on file Not on file Travel History Travel Start Travel End No recent travel history available. Last Filed Vital Signs Not on file Plan of Treatment Health Maintenance Due Date Last Done Comments COLONOSCOPY SCREENING 10/20/1999 SHINGLES VACCINES (#1) 10/20/1999 65+ PNEUMOCOCCAL VACCINE (1 of 2 - PCV13) 2014 INFLUENZA VACCINE 03/04/2020 06/03/2018 Implants Implanted Type Area Aquaculture Worker Device Shelf Model / Identifier Expiration Serial / Lot Date Bone Matriz Osteocel Pro Small - [id number] - [id number] Human N /A: NUV[employer]IVE 02/26/2023 [id number] / Implanted: Qty: 1 on 07/31/2018 by Yasmin Schuster MD at [facility] Tissue N/A [id number] / Implants [id number] Distraction Pin- 12mm - [id number] IMPLANT N/A: NUVASIVE SPIN E [id number] / Implanted: 07/31/2018 at [facility] (Quantity not on file) DEVICES N/A / Spinal Cage Ortho - N/A: [employer]. 12/08/2022 [id number] / Implanted: Qty: 1 on 07/31/2018 by Yasmin Schuster MD at [facility] Spinal N/A [id number] / Implant [id number] Screw Spinal Fxd Slf-Tap 4x13mm [place] Revolution Acp - [id number] Spinal N/A: NUVASIVE [id number] / Implanted: 07/31/2018 at [facility] (Quantity not on file) Implants N/A / Screw Spinal Marcia Slf-Tap 4x13mm [place] Revolution Acp - [id number] Spinal N/A: NUVASIVE [id number] / Implanted: 07/31/2018 at [facility] (Quantity not on file) Implants N/A / Plate Spinal Revltn 1lvl 22mm [place] Acp - [id number] Spinal N/A: NUVASIVE [id number] / Implanted: 07/31/2018 at [facility] (Quantity not on file) Implants N/A / Results Not on fileafter 12/08/2018 Insurance Payer Benefit Plan / Subscriber ID Effective Dates Phone Addre ss Type Group HUMANA MEDICARE HUMANA MEDICARE xxxxxxxxx 2017-Present PPO PPO/PFFS/ERS [facility] [id number] (Work) Advance Directives For more information, please contact: [phone] Type Date Recorded Patient Oil Treater Explanati on Advance Directives, Living Will 01/15/2015 5:38 AM and Medical Power of 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
--- OUTSIDE RECORDS SUMMARY | 2019-12-09 10:30 | XMS REPORT ---
:1950 Author Organization [facility] t Address [address] [place] [address] Dr. Cody [address] [place] [id number] Care Team Providers Name Role Phone Unavailable Unavailable Unavailable Problems This patient has no known problems. Allergies, Adverse Reactions, Alerts This patient has no known allergies or adverse reactions. Medications This patient has no known medications.
[2019-12-09] MEDS ORDERED: ONDANSETRON 4 MG/2 ML VIAL IV PRN (11:00)
[2019-12-09] MEDS ORDERED: LOPERAMIDE HCL 2 MG CAPSULE PO PRN (11:00)
[2019-12-09] MEDS ORDERED: ACETAMINOPHEN 325 MG TABLET PO PRN (11:00)
[2019-12-09] MEDS ORDERED: POLYETHYL GLY 3350 17 GM/DOSE PO PRN (11:00)
[2019-12-09] MEDS ORDERED: GLUCAGON 1 MG/VIAL IM PRN (11:00)
[2019-12-09] MEDS ORDERED: ONDANSETRON 4 MG (ODT) TAB PO PRN (11:00)
[2019-12-09] MEDS ORDERED: D50W 25 GM/50 ML SYRINGE/VIAL IV PRN (11:00)
[2019-12-09] MEDS ORDERED: DIPHENHYDRAMINE 25 MG TAB/CAP PO PRN (11:00)
[2019-12-09 11:09] VITALS: BMI 40.8
[2019-12-09 11:18] LABS: Absolute Lymphocytes (CBC) 1.1 K/uL (0.7-4.9); Basophils % 1.3 % (0-1.3); Hematocrit 42.4 % (39.6-49.0); Lymphocytes % 17.6 % (15.3-44.8); MPV 8.3 fL (7.6-11.3); RBC Red Blood Cell Count 4.91 M/uL (4.33-5.43)
[2019-12-09 11:25] LABS: Protime INR 0.95
[2019-12-09] MEDS: INSULIN -REGULAR HUMAN 50 UNIT/0.5 ML ML SQ SCH ×3 (11:30→20:51)
[2019-12-09] MEDS ORDERED: HOME MED 1 EA UNK (Linaclotide [Linzess] 290 MCG) PO SCH (11:45)
--- NOTE | 2019-12-09 11:52 | RAD REPORT ---
EXAM DESCRIPTION: Greta You (2 Views)12/09/2019 11:45 am CLINICAL HISTORY: Malignant hypertension COMPARISON: 2019 FINDINGS: The lungs appear clear of acute infiltrate. The heart is normal size IMPRESSION: No acute abnormalities displayed
[2019-12-09 11:54] LABS: Albumin 3.3 g/dL (3.4-5.0); Bilirubin Direct 0.2 mg/dL (0-0.2); Bilirubin Total 0.6 mg/dL (0.2-1.0); CKMB Creatine Kinase MB 3.7 ng/mL (0.3-3.6); Magnesium 1.8 mg/dL (1.8-2.4); Phosphorus 3.2 mg/dL (2.5-4.9); Potassium 3.5 mmol/L (3.5-5.1); Protein, Total 7.2 g/dL (6.4-8.2); Troponin I 0.03 ng/mL (0.0-0.045)
[2019-12-09 11:56] LABS: Thyroid Stimulating Hormone 4.33 uIU/mL (0.360-3.740)
[2019-12-09] MEDS ORDERED: INSULIN ASPART 15 UNIT SQ SCH (12:00)
--- NOTE | 2019-12-09 13:49 | RAD REPORT ---
EXAM DESCRIPTION: US - Abdomen Pelvis Scan US - 12/09/2019 1:35 pm CLINICAL HISTORY: malignant htn COMPARISON: [place] Protocol dated 03/27/2019 TECHNIQUE: Sonographic evaluation of the kidneys was performed with measurements obtained and gross anatomic assessment performed.Doppler evaluation of the renal arteries, interlobar arteries and aorta performed. Waveforms and velocities were recorded. The renal artery ratios and resistive index evin ues were calculated. FINDINGS: Kidneys are normal size with normal cortical thickness. Echogenicity is increased slightly which could be medical renal disease, body habitus affects or a combination. No hydronephrosis or simpson spicious renal mass. Bilateral renal cysts are present. Proximal right renal artery could not be well visualized. Visualized renal an arcuate artery show no suspicious waveform pattern or abnormal velocity pattern. Resistive index values are 0.80 for the rig ht renal artery and 0.92 for the left renal artery. Arcuate resistive index values are 0.88 on the le ft and 0.78 on the right. Renal artery ratios are in the normal range measuring 1.44 on the right and 1.36 on the left. IMPRESSION: Normal renal artery ratios. Renal artery stenosis is not suspected.
[2019-12-09] MEDS ORDERED: CLONIDINE HCL 0.3 MG PO SCH (14:00)
[2019-12-09] MEDS ORDERED: ROPINIROLE HCL 1 MG PO SCH (14:00)
[2019-12-09 19:17] LABS: CKMB Creatine Kinase MB 3.4 ng/mL (0.3-3.6); Troponin I 0.04 ng/mL (0.0-0.045)
[2019-12-09] MEDS: INSULIN GLARGINE 100 UNITS/ML SQ SCH (20:50)
[2019-12-09] MEDS ORDERED: INSULIN GLARGINE HUM REC ANLOG 70 UNIT SQ SCH (21:00)
[2019-12-09] MEDS ORDERED: AMITRIPTYLINE 25 MG PO SCH (21:00)
[2019-12-09] MEDS ORDERED: NALTREXONE HCL 1.5 MG MC SCH (21:00)
[2019-12-09] MEDS ORDERED: HOME MED 1 EA UNK (Hydralazine Hcl [Apresoline] 100 MG) PO SCH (21:00)
[2019-12-10 02:59] LABS: Troponin I 0.03 ng/mL (0.0-0.045)
[2019-12-10 03:53] LABS: Urine Appearance CLEAR; Urine Bilirubin NEGATIVE (NEG); Urine Blood NEGATIVE (NEG); Urine Color YELLOW; Urine Glucose NEGATIVE (NEG); Urine Protein 2+ (NEG); Urine Specific Gravity 1.015 (1.005-1.030); Urine pH 6.5 (5.0-7.0)
[2019-12-10 03:54] LABS: Urine Microscopic Reflex ORDER UMIC
[2019-12-10 04:10] LABS: Urine Bacteria <20 /HPF (NONE SEEN); Urine Culture Reflex Order NOT NEEDED; Urine RBC <5 /HPF (NONE SEEN)
[2019-12-10] MEDS ORDERED: LIRAGLUTIDE 1.2 MG SQ SCH (06:00)
[2019-12-10 06:42] LABS: Absolute Lymphocytes (CBC) 1.2 K/uL (0.7-4.9); Lymphocytes % 19.5 % (15.3-44.8); MPV 8.7 fL (7.6-11.3); RBC Red Blood Cell Count 4.69 M/uL (4.33-5.43)
[2019-12-10 06:52] LABS: Magnesium 1.8 mg/dL (1.8-2.4); Potassium 3.8 mmol/L (3.5-5.1)
[2019-12-10] MEDS: INSULIN GLARGINE 100 UNITS/ML SQ SCH (08:34)
[2019-12-10] MEDS: INSULIN -REGULAR HUMAN 50 UNIT/0.5 ML ML SQ SCH (08:35)
[2019-12-10 08:44] VITALS: BP 160/90
[2019-12-10] MEDS ORDERED: HOME MED 1 EA UNK (Furosemide [Furosemide] 40 MG) PO SCH (09:00)
[2019-12-10] MEDS ORDERED: ATORVASTATIN CALCIUM 40 MG PO SCH (09:00)
[2019-12-10] MEDS ORDERED: HOME MED 1 EA UNK (Cholecalciferol (Vitamin D3) [Vitamin D3] 5,000 UNIT) PO SCH (09:00)
[2019-12-10] MEDS ORDERED: HOME MED 1 EA UNK (Venlafaxine Hcl [Venlafaxine Hcl Er] 150 MG) PO SCH (09:00)
[2019-12-10] MEDS ORDERED: LOSARTAN POTASSIUM 12.5 MG PO SCH (09:00)
[2019-12-10] MEDS ORDERED: ENOXAPARIN 40 MG/0.4 ML SQ SCH (09:00)
[2019-12-10] MEDS ORDERED: ASPIRIN 81 MG PO SCH (09:00)
[2019-12-10] MEDS ORDERED: HOME MED 1 EA UNK (Cyanocobalamin (Vitamin B-12) [Vitamin B12] 2,500 MCG) PO SCH (09:00)
[2019-12-10] MEDS ORDERED: PIMAVANSERIN TARTRATE 34 MG PO SCH (09:00)
[2019-12-10] MEDS ORDERED: DOXAZOSIN 4 MG PO SCH (09:00)
[2019-12-10] MEDS ORDERED: HOME MED 1 EA UNK (Clopidogrel Bisulfate [Plavix*] 75 MG) PO SCH (09:00)
[2019-12-10] MEDS ORDERED: NEBIVOLOL HCL 20 MG PO SCH (09:00)
[2019-12-10] MEDS ORDERED: AMLODIPINE 2.5 MG TAB PO SCH (09:00)
[2019-12-10 09:12] VITALS: TEMP 98.7
[2019-12-10 10:17] VITALS: O2SAT 98
--- NOTE | 2019-12-10 10:37 | EKG ---
Test Date: 2019-12-09 Test Time: 11:11:51 Dipper And Baker: HERNANDEZ MEASUREMENT RESULTS: Intervals: Rate: 83 MT: 170 QRSD: 96 QT: 380 QTc: 446 [place]: P: 42 MT: 170 QRS: 31 T: 164 INTERPRETIVE STATEMENTS: Normal sinus rhythm ST & T wave abnormality, consider inferolateral ischemia Abnormal ECG Compared to ECG 12/07/2019 22:01:49 ST (T wave) deviation now present Possible ischemia now present Left ventricular hypertrophy no longer present Early repolarization no longer present Prolonged QT interval no longer present Electronically Signed On 12-10-19 10:34:52 CDT by Brandon Mccallum
--- NOTE | 2019-12-10 11:16 | ECHO ---
HEIGHT: 5 ft 10.5 in WEIGHT: 289 lb 0 oz DATE OF STUDY: 12/09/[address]: Ryan Tirado MD 2-DIMENSIONAL: YES M.MODE: YES DOPPLER: YES COLOR FLOW: YES TDS: YES PORTABLE: DEFINITY: BUBBLE STUDY: DIAGNOSIS: MALIGNANT HYPERTENSION CARDIAC HISTORY: CATHERIZATION: NO SURGERY: NO PROSTHETIC VALVE: NO PACEMAKER: NO MEASUREMENTS (cm) DIASTOLIC (NORMALS) SYSTOLIC (NORMALS) IVSd 1.2 (0.6-1.2) LA Diam 3.3 (1.9-4.0) LVEF 55-60% LVIDd 3.9 (3.5-5.7) LVIDs 3.2 (2.0-3.5) %FS % LVPWd 1.5 (0.6-1.2) Ao Diam (2.0-3.7) 2 DIMENSIONAL ASSESSMENT: RIGHT ATRIUM: NORMAL LEFT ATRIUM: NORMAL RIGHT VENTRICLE: NORMAL LEFT VENTRICLE: LEFT VENTRICULAR HYPERTROPHY TRICUSPID VALVE: NORMAL MITRAL VALVE: NORMAL PULMONIC VALVE: NORMAL AORTIC VALVE: NORMAL PERICARDIAL EFFUSION: NONE AORTIC ROOT: NORMAL LEFT VENTRICULAR WALL MOTION: NORMAL DOPPLER/COLOR FLOW: MILD TRICUPSID REGURGITATION. COMMENTS: LEFT VENTRICULAR HYPERTROPHY. NORMAL EJECTION FRACTION. NO WALL MOTION ABNORMALITY. NO EFFUSION. TECHNOLOGIST: PAOLO BURK
--- NOTE | 2019-12-10 23:41 | DS ---
Date of Discharge: 12/10/2019 Final Diagnoses: Hypertension, uncontrolled; diabetes, uncontrolled; morbid obesity, poor diet contr ol; chronic edema. Hospital Course: Patient who is a 69 years old called my office yesterday with blood pressure 220/10 4, sugar of 500. I am sure he missed his medications 1 time and pressure and sugar went up. When he took to the medications after he reached the hospital within a few hours, his sugar was back to sydni l and blood pressure was back to normal. It climbed up to 180 systolic on the top this morning. I leonel dey explained to patient's family that whenever he misses the medication give him right away, he may need extra dose of clonidine he has to control the blood pressure. I have asked her to take over the medications because I do not trust Mr. Guzman whether he takes his medications on time, whether he misses them, whether he forgets to put in the pill box, so will take care of all the medications from now onwards. He is already on 6 medications for hypertension and edema and he is seeing a neph rologist and english faculty member for preventing chronic complications. He remains high risk for any complic ations at this point. HOMERO[facility] Voice ID: [id number] Report ID: [id number]
--- NOTE | 2019-12-11 06:22 | CON ---
Date of Consultation: 12/10/2019 Reason For Consultation: Hypertensive crisis. History Of Present Illness: Mr. Guzman is a 69-year-old white male. I have dealt with his blood pr essure for a few years. Right now, he is very difficult to control, very noncompliant with his medic al regimen. He came in with a blood pressure of 195/95, it is now 150/75. I have done cardiac kelsey p on him in the past including renal workup. He has had a renal artery Doppler, which was normal. I t was repeated yesterday and that was normal. I have also done a 24-hour urine study on him to rule out pheochromocytoma and that was normal. He takes many medications for his blood pressure, but keep s having paroxysmal severe hypertensive episodes. He denied any chest pain with it. Denied any naus ea, vomiting, PND, orthopnea, pedal edema, palpitation, or syncope. Past Medical History: Includes diabetes, hypertension, history of lymphedema, renal cancer in the [facility]. Review of Systems: Negative. Social History: Negative. Family History: Negative. Medications: At home include Elavil, Lipitor, aspirin, Effexor, ropinirole, Nuplazid, naltrexone, Vi ctoza, Linzess, insulin, and Plavix. He is also on Bystolic 20 mg daily, losartan 50/12.5 daily, hyd ralazine 100 b.i.d., Lasix 40 mg daily, Cardura 4 mg daily, and clonidine 0.3 t.i.d. Physical Examination: General: When I saw him, he was pleasant, joking, no acute distress. Vital Signs: Blood pressure was 150/75, sinus rhythm. HEENT: Negative. Neck: Supple. No bruit. Chest: Clear. Cardiac: Revealed a regular rhythm and rate with an S4 gallop. Abdomen: Benign. Extremities: Revealed no clubbing, cyanosis, or edema. Diagnostic Data: Within normal limit. His EKG showed LVH. Chest x-ray was normal. Creatinine is 1 .45. Impression: 1.Hypertension, poorly controlled. 2.Diabetes. 3.Renal insufficiency. 4.History of lymphedema. 5.Left ventricular hypertrophy. Plan: The case was discussed with Dr. Tirado. The patient has been a very difficult patient to contr ol from a blood pressure standpoint. He has had negative workup for pheochromocytoma and renal arter y stenosis and hyperthyroidism. I would continue his present regimen right now. I would consider us e of Procardia or Norvasc, although his edema may be an issue. We may have to just do that and diure se him more. Patient can go home from my standpoint and I will see him in the office in the next 1 o r 2 weeks. His diabetes is fairly well controlled. His renal insufficiency is chronic. We will con tinue to follow that. No need for any further cardiac workup at this point. TIARA/WELLINGTON Voice ID: [id number] Report ID: [id number]
== END 2019-12-10 11:40 | disposition home or self-care (01) ==
LOC: 2ND 10:00
PROVIDERS: ADMIT Internal Medicine; ATTEND Internal Medicine
DX: I16.9 Hypertensive crisis, unspecified (principal); I51.7 Cardiomegaly; E11.65 Type 2 diabetes mellitus with hyperglycemia; R60.9 Edema, unspecified; N28.9 Disorder of kidney and ureter, unspecified; Z91.14 Patient's other noncompliance with medication regimen; E66.01 Morbid (severe) obesity due to excess calories; Z68.41 Body mass index [BMI] 40.0-44.9, adult; Z85.53 Personal history of malignant neoplasm of renal pelvis; Z79.82 Long term (current) use of aspirin; Z79.02 Long term (current) use of antithrombotics/antiplatelets; Z79.4 Long term (current) use of insulin
CPT/HCPCS: 93005; 93306; 85025 ×2; 80048 ×2; 36415 ×2; 83735 ×2; 82550 ×3; 84100; 85610; 82947 ×4; 80076; 85730; 84443; 83036; 82570; 84484 ×3; 82553 ×3; 84439; 82607; 82306; 82088; 84244; 82043; 71046; 93975; J1650; G0379; G0378 ×3; 81003; 81015; J1815